=== PATIENT | male | born 1950 | race Caucasian/White ===

== ENCOUNTER 2019-06-13 20:14 | Observation (INO) | payer MEDICARE, SELFPAY ==
--- NOTE | ~2019-06-13 | XR_ITS ---
EXAMINATION: XR shoulder LT min 2V DATE: 06/13/2019 22:10 INDICATION: Left shoulder pain and inability to move the left arm post fall TECHNIQUE: AP internally rotated, AP oblique externally rotated and transscapular Y views of the left shoulder were obtained. COMPARISON: None FINDINGS: On the AP view there is a double density along the cephalad margin of the scapular body suspicious fo r a minimally displaced fracture. No correlate identified on the transscapular Y projection and this region is obscured on the Grashey projections. There are several old healed posterior left rib fractu re deformities. Glenohumeral and acromioclavicular joints are normal alignment with mild osteoarthrit is. Mild upper thoracic levoscoliosis. There are bilateral deep brain stimulators with leads extendin g cephalad along the left and right sides of the neck. IMPRESSION: Suspicion of a minimally displaced fracture at the cephalad aspect of the left scapular body. If clin ically indicated could consider CT for more definitive determination. Reviewed, dictated and finalized at location A. ER MACHINE OPERATOR IMPRESSION: Suspicion of a minimally displaced fracture at the cephalad aspect of the left scapular body. If clinically indicated could consider CT for more definitive de termination.
--- NOTE | ~2019-06-13 | XR_ITS ---
EXAMINATION: XR elbow LT min 3V DATE: 06/13/2019 22:09 INDICATION: Left elbow pain post fall TECHNIQUE: Anteroposterior, oblique and lateral views of the left elbow were obtained. COMPARISON: None. FINDINGS: Alignment is normal. No fracture. Joint spaces are normal. Soft tissues are unremarkable. IMPRESSION: 1. Negative left elbow radiographs. Reviewed, dictated and finalized at location A. ACT CENTER SPECIALIST
--- NOTE | ~2019-06-13 | CT_ITS ---
EXAMINATION: CT cervical spine wo con DATE: 06/13/2019 21:52 INDICATION: Fall with left shoulder pain. TECHNIQUE: Computed tomography (CT) of the cervical spine was performed without intravenous contrast. Automated exposure control and iterative reconstruction technique were employed. The dose-length pro duct was 501.75 mGy-cm. COMPARISON: None FINDINGS: Mild cervical dextrocurvature. Sagittal alignment is normal. Severe osteoarthritis at the atlantoaxia l articulation. Vertebral body heights are normal. No acute fracture. Mild disc height loss at C5-C6 and moderate disc height loss at C6-C7. Small posterior disc osteophyte complex at both levels result in mild central canal stenosis. Facet osteoarthritis, severe on the right at C7-T1 and moderate on t he left at C3-C4 and on the right at T3-T4. Additional mild bilateral multilevel facet osteoarthritis throughout the cervical spine and upper thoracic spine. Moderate bilateral uncovertebral osteoarthri tis at C6-C7 contribute to moderate left-sided and mild right-sided neural foraminal stenosis at this level. No significant stenosis in the remaining neural foramina. Bilateral spinal stimulator leads s een extending along the posterolateral aspect of the left and right sides of the neck. Cervical soft tissues are otherwise unremarkable. Minimal dependent atelectasis at the apices of lungs which may be related to expiratory phase of imaging. IMPRESSION: 1. Mild cervical spondylosis. No acute osseous abnormality. Reviewed, dictated and finalized at location A. PARTS SALESPERSON
--- NOTE | ~2019-06-13 | XR_ITS ---
EXAMINATION: XR hip LT 2V w AP pelvis DATE: 06/13/2019 22:09 INDICATION: Left hip pain post fall TECHNIQUE: Anteroposterior view of the pelvis and anteroposterior, frog leg and cross-table lateral v iews of the left hip were obtained. COMPARISON: CT abdomen and pelvis dated 07/05/2007. FINDINGS: Alignment is normal. No fracture. Mild left and mild to moderate right hip osteoarthritis. Sacrum and bilateral sacralized joints are normal. Likely benign chronic lytic lesion with thin sclerotic antonino ns at the left iliac wing which is without interval change since 07/05/2007 IMPRESSION: 1. Mild left and mild to moderate right hip osteoarthritis. No acute osseous abnormality. Reviewed, dictated and finalized at location A. ANICAL SUPERVISOR IMPRESSION: 1. Mild left and mild to moderate right hip osteoarthritis. No acute osseous ab normality.
--- NOTE | ~2019-06-13 | CT_ITS ---
EXAMINATION: CT brain wo con DATE: 06/13/2019 21:51 INDICATION: Anticoagulated patient with Parkinson's disease post fall TECHNIQUE: Computed tomography (CT) of the head was performed without intravenous contrast. Sagittal and coronal reconstructions were performed. The mA was adjusted according to patient size. Iterative reconstruction technique was employed. The dose-length product was 681.00 mGy-cm. COMPARISON: None FINDINGS: Bilateral deep brain stimulators in expected position extending through bilateral frontal maria del carmen holes. No fracture. No acute intracranial hemorrhage, acute infarction or abnormal extra axial fluid collec tion. Symmetric prominence of the sulci consistent with mild age-appropriate diffuse cerebral volume loss. Ventricles are normal and symmetric. No mass/mass effect. Coastal thickening the bilateral maxi llary sinuses. The orbits and mastoid air cells are normal. IMPRESSION: 1. No fracture or acute intracranial process. Reviewed, dictated and finalized at location A. RTMENT CHAIRPERSON
[2019-06-13 20:21] VITALS: BP 134/85; PULSE 71; RESP 16; TEMP 36.2; O2SAT 97
--- NOTE | 2019-06-13 20:37 | ED.FALL ---
HPI - Fall General Chief Complaint: Extremity Injury, Upper Stated Complaint: fall Time Seen by Provider: 06/13/19 20:30 Source: patient and RN notes reviewed Mode of arrival: EMS Limitations: no limitations History of Present Illness HPI Narrative: Pt is a 69 y/o male with a Hx of Parkinson's disease, who presents to the ED via EMS with c/o fall happening this evening. He notes that he slipped and fell on a patch of ice this evening and struck his lt shoulder on the ground. Pt states that he is unsure of whether or not he struck his head during the fall. He notes that he has had intense pain diffusely through his lt shoulder ever since the fall. Pt currently denies any hip pain, numbness/tingling, headache, vision changes, vomiting, or other symptoms. He is currently taking blood thinners. MD complaint: fall Fall from: standing Place fall occurred: home Symptoms prior to fall: none Context: tripped/slipped Location of injury - extremities: Left: shoulder Associated symptoms (after fall): other (diffuse lt shoulder pain) Related Data Home Medications Medication Instructions Recorded Confirmed carbidopa-levodopa tablet 06/13/19 empagliflozin [Jardiance] 10 mg PO QAM 06/13/19 06/13/19 entacapone mg 06/13/19 linaclotide [Linzess] mcg 06/13/19 midodrine mg 06/13/19 prasugrel 10 mg PO DAILY 06/13/19 06/13/19 rivaroxaban [Xarelto] mg 06/13/19 Allergies Allergy/AdvReac Type Severity Reaction Status Date / Time No Known Allergies Allergy Unverified 10/02/18 08:52 Review of Systems Review of Systems: Narrative: CONSTITUTIONAL: Denies fever, chills, or sweats. EYES: Denies visual changes, redness, or discharge. GASTROINTESTINAL: Denies abdominal pain, nausea, vomiting, or diarrhea. SKIN: Denies rash or itching. MUSCULOSKELETAL: Denies back pain or hip pain. Reports diffuse lt shoulder pain. NEUROLOGIC: Denies headache, numbness, or weakness. All systems reviewed & are unremarkable except as noted in HPI and below PMFSH Past Medical History Medical History DVT (deep venous thrombosis) Kidney stones Parkinsons disease Right rotator cuff tear Seizures Ventral hernia Surgical History Surgical History Hx of appendectomy Hx of repair of right rotator cuff Hx of tonsillectomy S/P deep brain stimulator placement Family History Family History (Updated 11/14/15 @ 23:19 by DOCTOR UNKNOWN) Mother Family history of Alzheimer's disease Sibling Family history of malignant neoplasm of breast in first degree relative Other Family history of hepatitis Social History Social History Smoking status: Never smoker Second hand tobacco smoke exposure: No Alcohol intake: never Exam Narrative: Exam Narrative: GENERAL:Uncomfortable appearing, acutely distressed due to pain HEAD: Normocephalic, atraumatic. EYES: PERRLA and EOMI. ENT: Nares clear, no rhinorrhea or epistaxis. Mucous membranes moist. NECK: Supple. CHEST: Clear to auscultation. No respiratory distress. HEART: Regular rate and rhythm. No murmur heard. Normal peripheral pulses (radial pulses 2+). ABDOMEN: Soft, nontender, nondistended, normal active bowel sounds. EXTREMITIES: No edema. No tenderness along lt clavicle. No obvious deformity. Tenderness over lt deltoid and lt proximal humerus, left scapula. + Rigidity in LUE is baseline. SPINE: No cervical or thoracic tenderness. Pelvis: Stable. No tenderness. No pain with internal or external rotation. SKIN: Warm, dry, no rash. NEURO: No focal deficits. Alert and oriented. Course Course Emergency Course: The patient presented to the emergency department for evaluation of shoulder pain following a ground-level fall in which he slipped on some ice. Patient has extreme tenderness over the left deltoid and scapula. No obvious dislocation clinically. Neurovascularly
[2019-06-13 21:08] LABS: Basophils Percent Auto 0.5 % (0.2-1.2); Eosinophils Absolute Auto 0.2 K/mm3 (0-0.3); Eosinophils Percent Auto 3.1 % (0-4.4); Hematocrit 41.5 % (42.0-52.0); Hemoglobin 13.7 g/dL (14.0-18.0); Immature Granulocyte Absolute 0.01 K/mm3 (0.00-0.031); Immature Granulocyte Percent A 0.2 % (0-0.5); Lymphocytes Absolute Auto 1.77 K/mm3 (0.9-3.2); Lymphocytes Percent Auto 28.9 % (18.3-44.2); Mean Corpuscular Hemoglobin 32.5 pg (26-34); Mean Corpuscular Volume 98.3 fl (80-100); Monocytes Absolute Auto 0.6 K/mm3 (0.1-0.6); Neutrophils Absolute Auto 3.5 K/mm3 (1.3-6.7); Neutrophils Percent Auto 57.3 % (45.5-73.1); Platelet Count Result 182 k/mm3 (150-375); Red Blood Count 4.22 M/mm3 (4.6-6.20); Red Cell Distribution Width 12.9 % (11.5-14.5); White Blood Count 6.1 K/mm3 (4.5-10.0)
[2019-06-13 21:20] LABS: Blood Urea Nitrogen 30 mg/dL (9-20); Calcium 9.2 mg/dL (8.4-10.2); Carbon Dioxide 24 mmol/L (22-30); Chloride 106 mmol/L (98-107); Estimated Glomerular Filt Rate 46; Glucose 113 mg/dL (75-110); Potassium 4.1 mmol/L (3.4-5.0); Sodium 138 mmol/L (137-145)
--- NOTE | 2019-06-13 21:30 | PC.NURSE ---
managed care director able to get all blood except blue top. will attempt again when pt gets back from xray/ct.
[2019-06-13] MEDS: LORAZEPAM INJ 2 MG/ML VIAL 0.5 MG IV PUSH (21:31)
--- NOTE | 2019-06-13 21:34 | PC.NURSE ---
pt to ct/xray via stretcher.
[2019-06-13] MEDS: SODIUM CHLORIDE 0.9% IV 1,000 ML 999 ML IV CONT (22:15)
[2019-06-13 22:26] VITALS: BP 157/89; PULSE 67; RESP 18; O2SAT 97
[2019-06-13 22:37] LABS: INR 1.3; Partial Thromboplastin Time 31.7 SECONDS (22.3-36.8); Prothrombin Time 15.5 Seconds (11.1-14.7)
[2019-06-13 23:20] VITALS: BP 143/80; RESP 68; O2SAT 100
[2019-06-13] MEDS: LORAZEPAM INJ 2 MG/ML VIAL 1 MG IV PUSH (23:48)
[2019-06-13] MEDS: DIAZEPAM 5 MG TABLET PO (23:51)
[2019-06-13 23:55] VITALS: BP 152/90; PULSE 74; RESP 18; O2SAT 96
[2019-06-14 00:43] VITALS: BP 150/93; PULSE 64; RESP 12; O2SAT 98
--- NOTE | 2019-06-14 01:02 | PC.NURSE ---
This patient, Herbert Jansen, was admitted to Medical Room 256-. Patient/family oriented to hospital policies and general routines including ID bracelet, bed and alarms, visiting hours, pain management, procedures, bathroom and other care routines, personal items, smoking policy, room service/diet, and visiting hours. Valuables list has been completed. Information on how to activate the Rapid Response Team has been discussed. Patient/Family are encouraged to report perceived risks to care and to ask questions if they do not understand what they are told or what they should do.
[2019-06-14 01:04] VITALS: BMI 28.0
[2019-06-14 01:06] VITALS: BP 145/81; PULSE 67; RESP 18; TEMP 36.4; O2SAT 93
[2019-06-14 05:53] VITALS: BP 125/85; PULSE 77; RESP 18; TEMP 36.1; O2SAT 97
--- NOTE | 2019-06-14 08:30 | PM.IMHP ---
H&P: HPI History of Present Illness Chief complaint: left scapular fracture muscle spasm Narrative: Herbert Jansen is a 69 year old male with history of Parkinson's and past DVT (on [facility] Xarelto for prophylaxis per ) who presented to the ER on evening of 06/13 via EMS after sustaining a ground level fall last night. Patient reports leaving a restaurant after dinner last night and slipped on black ice , causing patient to lose his footing, with feet slipping out from under him and him landing on his back/left side. He does not think he hit his head or lost consciousness. EMS was called and took him to the ER immediately. His pain was 8/10 at its worse, but his pain medication regimen has significantly reduced his pain, reporting no pain while lying in bed. Moving the left shoulder and palpation in the area makes it worse. He does not believe he injured anywhere else in his body. Patient tells me that he recently purchased a Rollator yesterday for aid in ambulation, but previously used a cane, using his right had predominately. He does not report acute changes in his ambulatory status, but does report some imbalance issues recently as Parkinson's progresses. No recently medication changes and after speaking with the , with the patient's permission, she tells me that he takes his medications as prescribed. He reports a chronic cough and constipation issues related to his Parkinson's. Otherwise, patient has no other complaints. Patient denies f/c/ns, recent illness, headaches, dizziness, lightheadedness, changes in v/h, cp/palpitations, sob, n/v/d, abd pain, melena, brbpr, dysuria, hematuria, cloudy urine, calf pain/swelling, s/sx of stroke Review of Systems Review of Systems: All systems reviewed & are unremarkable except as noted in HPI and below PMFSH Past Medical History Medical History History of DVT (deep vein thrombosis) Kidney stones Parkinsons disease Right rotator cuff tear Seizures Ventral hernia Surgical History Surgical History Hx of appendectomy Hx of repair of right rotator cuff Hx of tonsillectomy S/P deep brain stimulator placement Family History Family History Mother Family history of Alzheimer's disease Sibling Family history of malignant neoplasm of breast in first degree relative two sisters with breast cancer Father Family history of hepatitis Social History Social History Social History: Patient lives at home with his , Heydi, who is his surrogate MDM. His PCP is Dr. Rowe. He wishes to be listed as a Full Code. Smoking status: Never smoker Second hand tobacco smoke exposure: No Alcohol intake: current Alcohol use details: Occasional Substance use: former Gender identity (if verbalized by the patient): Male Spiritual care concerns: No Agree to blood products: Yes Meds Home Medications and Allergies Home Medications Medication Instructions Recorded Confirmed Type carbidopa-levodopa 1.5 tablet PO USEASDIRECTD 06/13/19 06/14/19 History entacapone 200 mg PO DIRECTED 06/13/19 06/14/19 History linaclotide [Linzess] 290 mcg PO AC 06/13/19 06/14/19 History rivaroxaban [Xarelto] 20 mg PO AC 06/13/19 06/14/19 History Calcium 500 1,000 mg PO DAILY 06/14/19 06/14/19 History Fleet Glycerin (Adult) 1 unit DAILY 06/14/19 06/14/19 History Vitamin D3 2,000 units PO DAILY 06/14/19 06/14/19 History alendronate 70 mg PO WEEKLY 06/14/19 06/14/19 History carbidopa-levodopa 2 tablet PO HS 06/14/19 06/14/19 History cyanocobalamin (vitamin B-12) 200 mg PO DAILY 06/14/19 06/14/19 History magnesium 500 mg PO DAILY 06/14/19 06/14/19 History omeprazole 20 mg PO DAILY 06/14/19 06/14/19 History Allergies Allergy/AdvReac Type Severity Reaction Status Date / T
[2019-06-14] MEDS: ENTACAPONE 200 MG TABLET PO ×5 (08:34→22:33)
[2019-06-14] MEDS: PANTOPRAZOLE 40 MG TABLET PO (08:34)
[2019-06-14] MEDS: CARBIDOPA/LEVODOPA 12.5/50 MG TABLET 1 TABLET PO ×4 (09:41→20:55)
[2019-06-14] MEDS: CARBIDOPA/LEVODOPA 25/100 MG TABLET 1 TABLET PO ×4 (09:42→20:54)
--- NOTE | 2019-06-14 10:24 | PHAR ---
The patient's home med of Linaclotide [Linzess] 290 MCG has been verified.
[2019-06-14 10:46] VITALS: BP 94/59; PULSE 64; RESP 16; TEMP 36.2; O2SAT 95
[2019-06-14 13:29] VITALS: BP 103/64; PULSE 70; RESP 16; TEMP 36.2; O2SAT 95
--- NOTE | 2019-06-14 15:13 | PM.CNOR ---
Assessment and Plan Assessment and plan (1) Fracture closed, scapula: Qualifiers: Encounter type: initial encounter Laterality: left Scapula location: unspecified part of scapula Qualified Code(s): S42.102A - Fracture of unspecified part of scapula, left shoulder, initial encounter for closed fracture Code(s): S42.109A - Fracture of unspecified part of scapula, unspecified shoulder, initial encounter for closed fracture Status: Acute Assessment and Plan: New patient evaluation status post injury. The history, physical exam and radiographs reviewed with the patient. Type of fracture discussed in detail . Treatment options including operative and non operative treatment reviewed . Risks, benefits and alternatives of each treatment discussed in detail . The patient has declined surgical treatment. Risks of treatment decision discussed in detail. Potential problems with displacement of the fracture, loss of alignment, nonunion, malunion and dysfunction discussed in detail. The patient's questions were answered. They verbalized understanding and agreement. Conservative treatment with immobilization, ice , compression and elevation. sling left upper extremity. Pain control. PT/OT. Will continue to follow. No surgical indication at this time. History of Present Illness HPI Consult date: 06/14/19 Requesting physician: Kandy Alfaro MD Consult reason: fracture ( Left shoulder) Chief complaint: left scapular fracture muscle spasm Narrative: 69-year-old gentleman with history of Parkinson's disease. Slipped yesterday on ice and fell back onto the posterior aspect of the left shoulder. Due to left shoulder pain and muscle spasm presented to the emergency room. Radiographs rib questionable for fracture. He is admitted for pain control and rehab. Complains of posterior left shoulder pain when he tries to move the arm. Minimal pain at rest. Pain overall is much improved compared to yesterday. Denies any new numbness or tingling. Denies head injury or loss of consciousness. Review of Systems Constitutional: Constitutional: Denies fever(s) Eyes: Eyes: Denies blurry vision ENT: Reports Normal hearing present Cardiovascular: Cardiovascular: Denies chest pain and Denies dyspnea Respiratory: Respiratory: Denies dyspnea and Denies wheezing Gastrointestinal: Gastrointestinal: Denies abdominal pain Genitourinary: Genitourinary: Denies urinary urgency Musculoskeletal: Musculoskeletal: Reports as per HPI and Denies numbness Integumentary/Breasts: Skin/Breast: Denies changing lesions and Denies sores Neurologic: Reports Normal hearing present, Reports abnormal gait ( Parkinson's disease), Denies behavioral changes, Denies confusion, Denies numbness, Denies convulsions and Reports seizure-like activity Psychiatric: Psychiatric: Denies behavioral changes, Denies confusion and Denies hallucinations Endocrine: Endocrine: Denies heat intolerance Hematologic/Lymphatic: Hematologic/Lymphatic: Denies easy bleeding Allergic/Immunologic: Allergic/Immunologic: Denies wheezing PMFSH Past Medical History Medical History History of DVT (deep vein thrombosis) Kidney stones Parkinsons disease Right rotator cuff tear Seizures Ventral hernia Surgical History Surgical History Hx of appendectomy Hx of repair of right rotator cuff Hx of tonsillectomy S/P deep brain stimulator placement Family History Family History Mother Family history of Alzheimer's disease Sibling Family history of malignant neoplasm of breast in first degree relative two sisters with breast cancer Father Family history of hepatitis Social History Social History Social History: Patient lives at home with his
[2019-06-14] MEDS: RIVAROXABAN 20 MG TABLET PO (16:42)
[2019-06-14 22:00] VITALS: BP 121/68; PULSE 64; RESP 16; TEMP 36.2; O2SAT 94
[2019-06-14] MEDS: CARBIDOPA/LEVODOPA 25/100 MG TABLET 2 TABLET PO (22:33)
[2019-06-15 05:41] LABS: Blood Urea Nitrogen 21 mg/dL (9-20); Calcium 8.3 mg/dL (8.4-10.2); Carbon Dioxide 25 mmol/L (22-30); Chloride 106 mmol/L (98-107); Estimated CRCL calculation 68 ml/min; Estimated Glomerular Filt Rate > 60; Glucose 90 mg/dL (75-110); Potassium 3.7 mmol/L (3.4-5.0); Sodium 137 mmol/L (137-145)
[2019-06-15 06:00] VITALS: BP 149/79; PULSE 62; RESP 20; TEMP 36.8; O2SAT 98
[2019-06-15] MEDS: CARBIDOPA/LEVODOPA 12.5/50 MG TABLET 1 TABLET PO ×2 (06:22→12:02)
[2019-06-15] MEDS: ENTACAPONE 200 MG TABLET PO ×2 (06:23→12:02)
[2019-06-15] MEDS: CARBIDOPA/LEVODOPA 25/100 MG TABLET 1 TABLET PO ×2 (06:23→12:02)
--- NOTE | 2019-06-15 08:33 | PCPTNOTE ---
Attempted to see Pt, Pt was eating breakfast. Will attempt again.
[2019-06-15] MEDS: PANTOPRAZOLE 40 MG TABLET PO (09:13)
--- NOTE | 2019-06-15 10:58 | PM.DS ---
DS: Diagnosis Admitting Diagnosis Admitting Diagnosis: Fracture of unspecified part of scapula, left shoulder, initial encounter for closed fracture Discharge Diagnosis (1) Fracture closed, scapula: Qualifiers: Encounter type: initial encounter Laterality: left Scapula location: unspecified part of scapula Qualified Code(s): S42.102A - Fracture of unspecified part of scapula, left shoulder, initial encounter for closed fracture Code(s): S42.109A - Fracture of unspecified part of scapula, unspecified shoulder, initial encounter for closed fracture Status: Acute Assessment and Plan: Noted on Xray imaging of suspicion of a minimally displaced fracture at cephalad aspect of left scapular body. Patient's pain has improved again today. He does not believe he received any pain medication today and the pain has gone down. Neurologically intact, decreased ROM secondary to pain; baseline chronic decrease mobility due to parkinson's. Orthopedic Surgery has been consulted from the ER and appreciate recommendations PT/OT Sling per Ortho recommendations. Plan on discharge to SNF today Monitor Pain control with Tylenol and short supply of Tramadol; patient wishes to refrain from narcotics as much as possible given his constipation (2) History of DVT (deep vein thrombosis): Code(s): Z86.718 - Personal history of other venous thrombosis and embolism Status: Acute Assessment and Plan: Patient takes Xarelto for DVT ppx. No clinical signs of VTE, nor signs of bleeding from fall Continue Xarelto (3) Parkinsons disease: Code(s): G20 - Parkinson's disease Status: Acute Assessment and Plan: Patient takes Sinemet 1.5 tablets several times a day and 2 tablets at night time Continue home regimen Continue Linzess for constipation related to Parkinson's as well as Fleets enemas as needed PT/OT (4) Elevated serum creatinine: Code(s): R79.89 - Other specified abnormal findings of blood chemistry Status: Acute Assessment and Plan: Cr down to 0.90; down from 1.50 yesterday; unclear etiology Follow up with PCP DS: Summary Hospital Course Reason for hospitalization: Left scapular fracture s/p fall Hospital Course: Patient is a 69 yo M with history of Parkinson's and past DVT (on [employer] Xarelto prophylaxis) who presented to the ER on evening of 06/13 via EMS after sustaining a ground level fall that night. Patient was walking out of a restaurant when he slipped on some ice, landing on his left back/shoulder. While in the ED, patient was found to have a minimally displaced fracture of the scapular body cephalad to the scapular spine on expanded view of CT imaging of c-spine. Please see H&P for further details. Presenting VS: BP 134/85, HR 71, RR 16, temp 97.2, sat 97% RA Presenting Pertinent labs: Cr 1.50 (06/15 0.90). CBC, coags, BMP otherwise unremarkable. Micro: none Imagin/[address] IMPRESSION: 1. No fracture or acute intracranial process. 06/13 left shoulder xray IMPRESSION: Suspicion of a minimally displaced fracture at the cephalad aspect of the left scapular body. If clinically indicated could consider CT for more definitive determination. ADDENDUM: The [id number] for the CT of the cervical spine was expanded and confirms a minimally displaced fracture of the scapular body cephalad to the scapular spine. 06/13 left elbow xray IMPRESSION: 1. Negative left elbow radiographs. 06/13 left hip/pelvis xray IMPRESSION: 1. Mild left and mild to moderate right hip osteoarthritis. No acute osseous abnormality. 06/13 c-spine CT IMPRESSION: 1. Mild cervical spondylosis. No acute osseous abnormality. ECG: none Patient was admitted to the hospitalist service for further evaluation for left scapular fracture; Dr. Meneses
[2019-06-15 14:10] VITALS: BP 115/71; PULSE 85; RESP 18; TEMP 36.2; O2SAT 97
== END 2019-06-15 15:15 ==
LOC: ANHED 06-14 00:10 → ANH2MED 06-14 00:32
PROVIDERS: Physician Assistant; Admitting Provider Internal Medicine; Emergency Provider Emergency Medicine; PCP Internal Medicine; Visit Provider Hospitalist
DX: S42.102A Fracture of unspecified part of scapula, left shoulder, initial encounter for closed fracture (principal); W00.0XXA Fall on same level due to ice and snow, initial encounter; M62.838 Other muscle spasm; R79.89 Other specified abnormal findings of blood chemistry; G20 Parkinson's disease; K59.00 Constipation, unspecified; Z79.01 Long term (current) use of anticoagulants; Z79.899 Other long term (current) drug therapy; Z86.718 Personal history of other venous thrombosis and embolism; Z96.82 Presence of neurostimulator
CPT/HCPCS: 28495; 36415; 70450; 72125; 73030; 73080; 73502; 73521; 80048; 85025; 85610; 85730; 96361; 96374; 96375; 96376; 97116; 97161; 97165; 97530; 97535; 99285; A4565; A9270; G0378; J2060; J3010; J7030

== ENCOUNTER 2021-10-20 22:53 | Observation (INO) | payer MEDICARE, SELFPAY ==
--- NOTE | ~2021-10-20 | XR_ITS ---
EXAMINATION: XR shoulder RT min 2V INDICATION: Right shoulder pain TECHNIQUE: Two views of the right shoulder are submitted. COMPARISON: None FINDINGS: There appears to be a comminuted fracture of the scapular body. No additional acute fractur e is identified. There is widening at the acromioclavicular joint. A stimulator device is noted. IMPRESSION: 1. Probable comminuted fracture of the scapular body. Reviewed, dictated and finalized at location B.
[2021-10-20 22:53] VITALS: BP 98/80; PULSE 70; RESP 16; TEMP 36.4; O2SAT 94
[2021-10-20 22:57] VITALS: BP 98/80; PULSE 69; RESP 24; O2SAT 92
[2021-10-20 22:58] VITALS: PULSE 62; RESP 19; O2SAT 93
[2021-10-20 23:00] VITALS: PULSE 70; RESP 17; O2SAT 93
[2021-10-20 23:01] VITALS: BP 108/71; PULSE 72; RESP 12; O2SAT 92
[2021-10-21] VITALS (28 sets, daily range): BP systolic 99–139; BP diastolic 54–78; PULSE 53–97; RESP 12–23; TEMP 36.4–36.7; O2SAT 65–96
--- NOTE | 2021-10-21 00:21 | ED.FALL ---
HPI - Fall General Chief Complaint: Fall Stated Complaint: FALL WITH RT SHOULDER PAIN Time Seen by Provider: 10/20/21 23:41 History of Present Illness HPI Narrative: 71-year-old male with history of Parkinson's presenting to the emergency department for evaluation of right shoulder pain. Patient had a ground-level fall and has had subsequent right shoulder pain. Patient arrived to the ED by EMS with his right arm in a pouch sling. Patient denies any other pain or injury. Patient denies striking head denies any loss of consciousness. Related Data Home Medications Medication Instructions Recorded Confirmed Fleet Glycerin (Adult) 1 unit DAILY 06/14/19 10/21/21 Vitamin D3 2,000 units PO DAILY 06/14/19 10/21/21 calcium carbonate 500 mg calcium 500 mg PO DAILY 01/30/21 10/21/21 (1,250 mg) tablet cyanocobalamin (vitamin B-12) 1,000 mcg PO DAILY 01/30/21 10/21/21 1,000 mcg tablet magnesium 250 mg tablet 250 mg PO DAILY 01/30/21 10/21/21 carbidopa 25 mg-levodopa 100 mg 1.5 tablet PO QID 06/18/21 10/21/21 tablet entacapone 200 mg tablet 100 mg PO .5XD 06/18/21 10/21/21 carbidopa 25 mg-levodopa 100 mg 2 tablet PO HS 10/21/21 10/21/21 tablet folic acid 1 mg tablet 1 mg PO DAILY 10/21/21 10/21/21 linaclotide 290 mcg capsule 390 mcg PO DAILY 10/21/21 10/21/21 (Linzess) midodrine 5 mg tablet 5 mg PO TID 10/21/21 10/21/21 rivaroxaban 20 mg tablet (Xarelto) 20 mg PO DAILY 10/21/21 10/21/21 rosuvastatin 10 mg tablet 10 mg PO DAILY 10/21/21 10/21/21 Allergies Allergy/AdvReac Type Severity Reaction Status Date / Time No Known Allergies Allergy Verified 10/20/21 22:58 Review of Systems Review of Systems: Patient reports shoulder pain ROS unobtainable: Yes unobtainable due to medical condition PMFSH Past Medical History Medical History (Updated 10/21/21 @ 05:03 by Kianna Miller DO) Autonomic dysfunction BPH (benign prostatic hyperplasia) Constipation by delayed colonic transit Deep vein thrombosis of left lower limb X2 Dupuytrens contracture Eczema GERD (gastroesophageal reflux disease) History of pelvic fracture Hyperlipidemia Iron deficiency anemia Kidney stones Orthostatic hypotension Osteoporosis Parkinsons disease Seizures Ventral hernia Vitamin B12 deficiency Vitamin D deficiency Surgical History Surgical History (Updated 10/21/21 @ 05:03 by Kianna Miller DO) History of appendectomy Hx of repair of right rotator cuff Hx of tonsillectomy S/P deep brain stimulator placement (~2011) Family History Family History Mother Family history of Alzheimer's disease Sibling Family history of malignant neoplasm of breast in first degree relative two sisters with breast cancer Father Family history of hepatitis Social History Social History (Updated 10/21/21 @ 05:19 by Kianna Miller DO) Social History: Patient lives at home with his , Heydi, who is his surrogate MDM. His PCP is Dr. Rowe. He wishes to be listed as a Full Code. However he does not think he would want a G-tube. Smoking status: Never smoker Second hand tobacco smoke exposure: No Alcohol intake: never Alcohol use details: On occasion in in moderation. 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 Gender identity (if verbalized by the patient): Male Spiritual care concerns: No Agree to blood products: Yes Exam Narrative: APPEARANCE: Uncomfortable appearing HEAD: normocephalic, atraumatic. EYES: PERRLA/EOMI, conjunctivae clear. NOSE: Normal no drainage NECK: Supple. No adenopathy, no masses. RESPIRATORY: Airway patent, respirations nonlabored. Clear to auscultation bilaterally, no rales, rhonchi, wheezing. CARDIOVASCULAR: Regular rate and rhythm without murmurs rubs or gallops. ABDOMINAL: Soft, nontender, nondistended, normal bowel sounds MUSCULOSKELETAL: Moves all extremities. Right s
[2021-10-21] MEDS: HYDROmorphone HCL INJ (*CRX) 1 MG/ML SYR 0.5 MG IV PUSH (00:25)
[2021-10-21] MEDS: HYDROcodone/acetaminophen (*CRX) 5-325 MG TABLET 1 TAB PO ×2 (02:45→08:48)
[2021-10-21 03:23] LABS: Basophils Percent Auto 0.3 % (0.2-1.2); Eosinophils Percent Auto 0.2 % (0-4.4); Hematocrit 40.7 % (42.0-52.0); Hemoglobin 13.6 g/dL (14.0-18.0); Immature Granulocyte Absolute 0.04 K/mm3 (0.00-0.031); Immature Granulocyte Percent A 0.4 % (0-0.5); Lymphocytes Absolute Auto 1.34 K/mm3 (0.9-3.2); Lymphocytes Percent Auto 11.8 % (18.3-44.2); Mean Corpuscular HGB Conc 33.4 g/dl (32-36); Mean Corpuscular Hemoglobin 33.6 pg (26-34); Mean Corpuscular Volume 100.5 fl (80-100); Mean Platelet Volume 11.9 fl (7.4-10.4); Monocytes Absolute Auto 0.9 K/mm3 (0.1-0.6); Monocytes Percent Auto 7.8 % (2.6-8.5); Neutrophils Percent Auto 79.5 % (45.5-73.1); Platelet Count Result 167 k/mm3 (150-375); Red Blood Count 4.05 M/mm3 (4.6-6.20); Red Cell Distribution Width 13.1 % (11.5-14.5); White Blood Count 11.4 K/mm3 (4.5-10.0)
[2021-10-21 03:35] LABS: Alanine Aminotransferase 8 U/L (6-50); Albumin Level 4.3 g/dL (3.5-5.1); Alkaline Phosphatase 43 U/L (38-126); Anion Gap 6 mmol/L (8-16); Aspartate Amino Transferase 23 U/L (17-59); Bilirubin,Total 0.5 mg/dL (0.2-1.3); Blood Urea Nitrogen 33 mg/dL (9-20); Calcium 8.9 mg/dL (8.4-10.2); Carbon Dioxide 25 mmol/L (22-30); Chloride 106 mmol/L (98-107); Estimated CRCL calculation 56 ml/min; Estimated Glomerular Filt Rate > 60; Glucose 123 mg/dL (65-110); Potassium 4.1 mmol/L (3.4-5.0); Sodium 137 mmol/L (137-145)
[2021-10-21 04:00] LABS: SARS-CoV-2 RNA PCR Negative
--- NOTE | 2021-10-21 04:45 | PM.IMHP ---
H&P: HPI History of Present Illness Date/Time: 10/21/21 03:50 Chief Complaint: Right shoulder pain after falling Narrative: 71-year-old male with past medical history of osteoporosis, orthostatic hypotension, Parkinson's disease and BPH who presented to the ER via EMS after falling while shaving. The patient reports that he was shaving and was not hold on to the sink or his walker when he lost his balance and fell landing on his right shoulder. He had immediate severe pain to his right shoulder. The pain is worse with any movement. He is also having muscle spasms even when he is not moving which causes the pain to be more severe. The pain is a 6/10 in intensity at rest and will be a 10/10 in intensity with movement or when he has the muscle spasms. He has intact pulses in the extremity and reports that his sensation in his fingers is normal. He does have a masked face ease and slow responses but is alert and oriented x4. He does have BPH and was recently started on finasteride. He does have occasional dribbling of urine in a slow urine stream. He does have a sensation of incomplete bladder emptying but denies any dysuria or hematuria. He has chronic constipation and takes MiraLax and a glycerin suppository daily. He is dependent upon using a walker but does try to ambulate about a quarter of a mi a day. His reports that he has a deep brain stimulator in place but they have not been able to go to [place] as much recently for adjustments of his stimulator. He denies any headaches or vision changes. He did not have any lightheadedness or syncopal symptoms. He denies any chest pain or shortness of breath. Source of information is patient and review of past medical records. His is also at bedside and provided some history. The patient's case was discussed with his with his express permission. Review of Systems Review of Systems: 12 systems were reviewed with pertinent positives and negatives per HPI. Except as documented in the HPI, all other systems were reviewed and are negative. [facility] Past Medical History Medical History (Updated 10/21/21 @ 05:03 by Kianna Miller DO) Autonomic dysfunction BPH (benign prostatic hyperplasia) Constipation by delayed colonic transit Deep vein thrombosis of left lower limb X2 Dupuytrens contracture Eczema GERD (gastroesophageal reflux disease) History of pelvic fracture Hyperlipidemia Iron deficiency anemia Kidney stones Orthostatic hypotension Osteoporosis Parkinsons disease Seizures Ventral hernia Vitamin B12 deficiency Vitamin D deficiency Surgical History Surgical History (Updated 10/21/21 @ 05:03 by Kianna Miller DO) History of appendectomy Hx of repair of right rotator cuff Hx of tonsillectomy S/P deep brain stimulator placement (~2011) Family History Family History Mother Family history of Alzheimer's disease Sibling Family history of malignant neoplasm of breast in first degree relative two sisters with breast cancer Father Family history of hepatitis Social History Social History (Updated 10/21/21 @ 05:19 by Kianna Miller DO) Social History: Patient lives at home with his , Heydi, who is his surrogate MDM. His PCP is Dr. Rowe. He wishes to be listed as a Full Code. However he does not think he would want a G-tube. Smoking status: Never smoker Second hand tobacco smoke exposure: No Alcohol intake: never Alcohol use details: On occasion in in moderation. 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 Gender identity (if verbalized by the patient): Male Spiritual care concerns: No Agree to blood products: Yes Meds Home Medications and Allergies Home Medications Medication Instructions Recorded Confirmed Type Fleet Glycerin (Adult) 1 unit DAILY 06/14/19 10/21/21 History Vitamin D3 2,000 units
[2021-10-21] MEDS: CYCLOBENZAPRINE HCL 10 MG TABLET PO (05:31)
--- NOTE | 2021-10-21 05:55 | ADMGEN ---
This patient, Herbert Jansen, was admitted to [facility] Room 315-02. Patient/family oriented to hospital policies and general routines including ID bracelet, bed and alarms, visiting hours, pain management, procedures, bathroom and other care routines, personal items, smoking policy, room service/diet, and visiting hours. Information on how to activate the Rapid Response Team has been discussed. Patient/Family are encouraged to report perceived risks to care and to ask questions if they do not understand what they are told or what they should do.
[2021-10-21] MEDS: MIDODRINE HCL 2.5 MG TABLET 5 MG PO ×3 (08:43→15:49)
[2021-10-21] MEDS: CYANOCOBALAMIN 1,000 MCG TABLET 1000 MCG PO (08:43)
[2021-10-21] MEDS: FOLIC ACID 1 MG TABLET PO (08:44)
[2021-10-21] MEDS: CHOLECALCIFEROL 1,000 UNITS TABLET 2000 UNITS PO (08:44)
[2021-10-21] MEDS: CALCIUM CARBONATE (OSCAL) 500 MG TABLET PO (08:44)
[2021-10-21] MEDS: ROSUVASTATIN 10 MG TABLET PO (08:44)
[2021-10-21] MEDS: LINACLOTIDE 145 MCG CAPSULE 290 MCG PO (08:44)
[2021-10-21] MEDS: MAGNESIUM OXIDE 200 MG TABLET PO (08:44)
--- NOTE | 2021-10-21 11:55 | PCPTNOTE ---
Needs ortho consult prior to completing PT evaluation.
--- NOTE | 2021-10-21 11:55 | PCOTNOTE ---
Needs ortho consult prior to completing OT evaluation.
[2021-10-21] MEDS: CARBIDOPA/LEVODOPA 12.5/50 MG TABLET 1 TABLET PO ×3 (12:27→20:48)
[2021-10-21] MEDS: CARBIDOPA/LEVODOPA 25/100 MG TABLET 1 TABLET PO ×2 (12:27→15:50)
[2021-10-21] MEDS: MORPHINE SULFATE (*CRX) 2 MG/ML INJ IV PUSH (12:28)
--- NOTE | 2021-10-21 15:17 | PM.IMPN ---
Progress Note: A&P Assessment and Plan (1) AC joint derangement: Code(s): M24.9 - Joint derangement, unspecified Status: Acute Assessment and Plan: Patient is in a cross body shoulder immobilizer. Orthopedic surgery consulted and appreciate recommendations. As noted above the patient has been seen by Dr. Gonzalez in the past. I contacted Dr. Gonzalez regarding this, however, he will be out of town and will defer to the Orthopedic provider concert or lecture hall manager. Pain control with [place] and Flexeril. (2) Impaired mobility: Code(s): Z74.09 - Other reduced mobility Status: Acute Assessment and Plan: PT and OT have been consulted. Given the patient's right shoulder AC separation and that he is dependent upon a walker for ambulation he will likely need long-term placement for rehab. (3) BPH (benign prostatic hyperplasia): Code(s): N40.0 - Benign prostatic hyperplasia without lower urinary tract symptoms Status: Acute Assessment and Plan: Continue home finasteride. Monitor urine output closely given history while receiving narcotic pain medications. (4) Fall from ground level: Code(s): W18.30XA - Fall on same level, unspecified, initial encounter Status: Acute Assessment and Plan: Fall precautions initiated. As above. Plan CODE STATUS: FULL CODE Disposition: Will likely need SNF placement. Estimated LOS: 2 days Subjective Date/time seen: 10/21/21 15:17 Patient c/o right shoulder pain that improves with oral medications. No IV morphine given. The patient's reports he has previously been seen by Dr. Gonzalez previously and wondered if he would be seeing the patient in the hospital. The patient was placed in a shoulder immobilizer in ED. Review of Systems Review of Systems: All systems reviewed & are unremarkable except as noted in HPI and below Exam Narrative: General: No acute distress.? Frail older adult male, lying in bed. Mental Status/Psych: Awake, alert and oriented to person and place with clear speech. Flat affect. Skin: Skin fair, warm, dry and intact without rashes or lesions. HEENT: Normocephalic. Conjunctivae are clear. Sclera is non-icteric. PERRL. Hard of hearing. Oral mucosa pink and moist. Tongue midline. Neck: Supple. No JVD. Cardiac: S1 and S2 regular rate and rhythm. No murmurs, gallops, or rubs auscultated. Respiratory: Respirations even and unlabored. Lung sounds are clear to auscultation in all lobes bilaterally without wheezes, rhonchi, or rales. Abdominal: Abdomen soft, round and non-tender to palpation.? Bowel sounds present in all 4 quadrants. Extremities:? Right shoulder immobilizer intact +CMS, grossly normal ROM all other extremities. No edema. Radial and dorsalis pedis pulses +2 bilaterally. Neurological: No focal deficits. Objective Data Vital Signs Vital Signs: Vital Signs - 24 hr 10/20/21 22:53 10/20/21 22:57 10/20/21 22:58 Temperature 97.5 F L Pulse Rate 70 69 62 Respiratory Rate 16 24 H 19 Blood Pressure 98/80 L 98/80 L Pulse Oximetry 94 92 93 Oxygen Delivery Room Air 10/20/21 23:00 10/20/21 23:01 10/21/21 00:07 Temperature Pulse Rate 70 72 64 Respiratory Rate 17 12 16 Blood Pressure 108/71 Pulse Oximetry 93 92 94 Oxygen Delivery 10/21/21 00:15 10/21/21 00:17 10/21/21 00:18 Temperature Pulse Rate 65 65 65 Respiratory Rate 18 19 17 Blood Pressure 116/69 Pulse Oximetry 95 95 94 Oxygen Delivery 10/21/21 00:38 10/21/21 00:45 10/21/21 00:47 Temperature Pulse Rate 65 63 62 Respiratory Rate 15 20 13 Blood Pressure 111/69 Pulse Oximetry 91 92 92 Oxygen Delivery 10/21/21 01:01 10/21/21 01:15 10/21/21 01:16 Temperature Pulse Rate 62 62 61 Respiratory Rate 15 13 13 Blood Pressure 113/68 107/73 Pulse Oximetry 93 93 90 Oxygen Delivery 10/21/21 01:30 10/21/21 01:32 10/21/21 01:45 Temperature Pulse Rate 60 61
[2021-10-21] MEDS: RIVAROXABAN 20 MG TABLET PO (15:49)
[2021-10-21] MEDS: CARBIDOPA/LEVODOPA 25/100 MG TABLET 2 TABLET PO ×2 (20:47→20:52)
[2021-10-22 05:40] VITALS: BP 139/76; PULSE 75; RESP 18; TEMP 36.4; O2SAT 95
[2021-10-22] MEDS: CARBIDOPA/LEVODOPA 25/100 MG TABLET 2 TABLET PO (06:05)
[2021-10-22] MEDS: CARBIDOPA/LEVODOPA 12.5/50 MG TABLET 1 TABLET PO ×4 (06:05→21:06)
[2021-10-22] MEDS: LINACLOTIDE 145 MCG CAPSULE 290 MCG PO (06:05)
[2021-10-22] MEDS: CALCIUM CARBONATE (OSCAL) 500 MG TABLET PO (08:55)
[2021-10-22] MEDS: FOLIC ACID 1 MG TABLET PO (08:55)
[2021-10-22] MEDS: MAGNESIUM OXIDE 200 MG TABLET PO (08:56)
[2021-10-22] MEDS: ROSUVASTATIN 10 MG TABLET PO (08:56)
[2021-10-22] MEDS: CHOLECALCIFEROL 1,000 UNITS TABLET 2000 UNITS PO (08:56)
[2021-10-22] MEDS: CYANOCOBALAMIN 1,000 MCG TABLET 1000 MCG PO (08:56)
[2021-10-22] MEDS: MIDODRINE HCL 2.5 MG TABLET 5 MG PO ×3 (08:57→17:37)
[2021-10-22 09:25] VITALS: O2SAT 94
--- NOTE | 2021-10-22 09:41 | PM.CNOR ---
Assessment and Plan Assessment and plan (1) AC joint derangement: Code(s): M24.9 - Joint derangement, unspecified Status: Acute Assessment and Plan: History, exam radiographs reviewed with the patient. Radiographs of the right shoulder reveal an AC joint separation and possible comminuted scapular fracture. Patient reports his pain is significantly improved over the last 1 day. His pain is mainly over the anterior aspect of the shoulder. The fracture type and injury as well as radiographs discussed with the patient and family. Operative and nonoperative treatment options reviewed. Recommended non operative treatment. Risk of nonunion, malunion or late displacement discussed. Stiffness, pain and possible dysfunction of the joint discussed. Fracture precautions and activity restrictions reviewed. The patient verbalizes understanding. He is currently in a shoulder immobilizer which he feels is uncomfortable. May switch to a sling if available. Can arrange for the outpatient orthopedic clinic to provide sling for patient comfort. Nonweightbearing right upper extremity. Patient will require further mobility assistance given he is currently relying on a walker for ambulation with history of Parkinson's disease and decreased mobility. PT and OT. Pain control. Ice. Okay to remove sling for hygiene purposes. (2) Fall from ground level: Code(s): W18.30XA - Fall on same level, unspecified, initial encounter Status: Acute (3) Impaired mobility: Code(s): Z74.09 - Other reduced mobility Status: Acute (4) Parkinsons disease: Code(s): G20 - Parkinson's disease Status: Acute (5) Scapular fracture: Qualifiers: Encounter type: initial encounter Scapula location: body Fracture type: closed Fracture alignment: displaced Laterality: right Qualified Code(s): S42.111A - Displaced fracture of body of scapula, right shoulder, initial encounter for closed fracture Code(s): S42.109A - Fracture of unspecified part of scapula, unspecified shoulder, initial encounter for closed fracture Status: Acute Assessment and Plan: The fracture type and injury as well as radiographs discussed with the patient and family. Operative and nonoperative treatment options reviewed. The patient elects for non operative treatment. Risk of nonunion, malunion or late displacement discussed. Stiffness, pain and possible dysfunction of the joint discussed. Fracture precautions and activity restrictions reviewed. The patient verbalizes understanding. Plan Reviewed radiographs, assessment and plan of care with attending physician and consulted surgeon, Dr. Marroquin. Agrees with current plan of care for nonweightbearing and conservative treatment versus operative treatment. Unsure if scapular fracture is new based on radiographs. No further recommendations at this time. History of Present Illness HPI Consult date: 10/22/21 Consult reason: fracture Chief complaint: AC joint separation, decreased mobility Narrative: 71-year-old male with a history of Parkinson's disease presented to the emergency room via EMS after a fall while shaving. Patient reports that he was shaving and lost his balance causing him to fall into the right shoulder. He had significant right shoulder pain. The pain was worse with any movement. Patient was evaluated in the emergency room and radiographs of the shoulder were obtained which reveal a comminuted fracture of the scapular body as well as AC joint widening. Patient admitted for further observation given history of Parkinson's and decreased mobility. Review of Systems Review of Systems: All systems reviewed & are unremarkable except as noted in HPI and below PMFSH Past Medical History Medical History (Updated 10/22/21 @ 16:46 by SHANELL Beck) Autonomic dysfunction BPH (benign prostatic hyperplasia) Constipation by delayed colonic transit Deep vein th
[2021-10-22] MEDS: CARBIDOPA/LEVODOPA 25/100 MG TABLET 1 TABLET PO ×3 (12:35→21:07)
[2021-10-22] MEDS: BISACODYL 10 MG SUPPOSITORY RECTAL (12:36)
[2021-10-22 14:00] VITALS: BP 102/67; PULSE 81; RESP 16; TEMP 36.5; O2SAT 95
--- NOTE | 2021-10-22 15:38 | PCPTNOTE ---
Continuing to wait on ortho consult prior to PT evaluation.
--- NOTE | 2021-10-22 15:44 | PM.IMPN ---
Progress Note: A&P Assessment and Plan (1) AC joint derangement: Code(s): M24.9 - Joint derangement, unspecified Status: Acute Assessment and Plan: Patient is in a cross body shoulder immobilizer. Orthopedic surgery consulted and appreciate recommendations. Pain control with [place] and Flexeril. (2) Impaired mobility: Code(s): Z74.09 - Other reduced mobility Status: Acute Assessment and Plan: PT and OT have been consulted. He will likely need jail placement for rehab, to which he is agreeable. (3) BPH (benign prostatic hyperplasia): Code(s): N40.0 - Benign prostatic hyperplasia without lower urinary tract symptoms Status: Acute Assessment and Plan: Continue home finasteride. Monitor urine output closely given history while receiving narcotic pain medications. (4) Fall from ground level: Code(s): W18.30XA - Fall on same level, unspecified, initial encounter Status: Acute Assessment and Plan: Fall precautions initiated. As above. (5) Chronic constipation: Code(s): K59.09 - Other constipation Status: Chronic Assessment and Plan: Continue miralax and bisacodyl suppository daily. Plan CODE STATUS: FULL CODE Disposition: Plan for discharge to rehab when cleared by ortho. Estimated LOS: 2 days Time Spent With Patient Time with patient: 15 - 25 minutes Subjective Date/time seen: 10/22/21 15:44 He is concerned about having a bowel movement. He reports taking miralax and a suppository every day at home to assist with this. He reports his pain is improved today, however, nursing reports the immobilizer is causing discomfort. No abdominal pain, N/V, shortness of breath or paresthesia. Review of Systems Review of Systems: All systems reviewed & are unremarkable except as noted in HPI and below Exam Narrative: General: No acute distress.? Frail older adult male, lying in bed. Mental Status/Psych: Awake, alert and oriented to person and place with clear speech. Flat affect. Skin: Skin fair, warm, dry and intact without rashes or lesions. HEENT: Normocephalic. Conjunctivae are clear. Sclera is non-icteric. PERRL. Hard of hearing. Oral mucosa pink and moist. Tongue midline. Neck: Supple. No JVD. Cardiac: S1 and S2 regular rate and rhythm. No murmurs, gallops, or rubs auscultated. Respiratory: Respirations even and unlabored. Lung sounds are clear to auscultation in all lobes bilaterally without wheezes, rhonchi, or rales. Abdominal: Abdomen soft, round and non-tender to palpation.? Bowel sounds present in all 4 quadrants. Extremities:? Right shoulder immobilizer intact +CMS, grossly normal ROM all other extremities. No edema. Radial and dorsalis pedis pulses +2 bilaterally. Neurological: No focal deficits. Objective Data Vital Signs Vital Signs: Vital Signs - 24 hr 10/21/21 21:45 10/22/21 05:40 10/22/21 08:57 Temperature 98.0 F 97.6 F Pulse Rate 61 75 Respiratory Rate 17 18 Blood Pressure 109/58 L 139/76 Pulse Oximetry 94 95 Oxygen Delivery Room Air 10/22/21 09:25 10/22/21 14:00 Temperature 97.7 F Pulse Rate 81 Respiratory Rate 16 Blood Pressure 102/67 Pulse Oximetry 94 95 Oxygen Delivery Room Air Intake/Output Intake/Output: Intake & Output 10/19/21 10/20/21 10/21/21 10/22/21 23:59 23:59 23:59 23:59 Intake Total 100 486 Output Total 200 1300 Balance -100 -814 Meds/Results Medications: Active Medications Generic Name Dose Route Start Last Admin Trade Name Freq PRN Reason Stop Dose Admin Hydrocodone Bitart/Acetaminophen 1 tab 10/21/21 03:36 10/21/21 08:48 Hydrocodone/Acetaminophen (*Crx) 5-325 Mg Tablet PO 1 tab Q4H PRN Administration Pain Rated 4-6 Bisacodyl 10 mg 10/22/21 11:10 10/22/21 12:36 Bisacodyl 10 Mg Suppository RECTAL 10 mg QAM ADDY Administration Calcium Carbonate 500 mg
[2021-10-22] MEDS: RIVAROXABAN 20 MG TABLET PO (17:37)
[2021-10-22 22:00] VITALS: BP 119/69; PULSE 61; RESP 16; TEMP 36.9; O2SAT 94
[2021-10-23 06:00] VITALS: BP 122/68; PULSE 57; RESP 16; TEMP 36.8; O2SAT 94
[2021-10-23 06:18] LABS: Hematocrit 41.6 % (42.0-52.0); Mean Corpuscular HGB Conc 33.7 g/dl (32-36); Mean Corpuscular Hemoglobin 33.1 pg (26-34); Mean Corpuscular Volume 98.3 fl (80-100); Mean Platelet Volume 12.4 fl (7.4-10.4); Platelet Count Result 167 k/mm3 (150-375); Red Blood Count 4.23 M/mm3 (4.6-6.20); Red Cell Distribution Width 12.8 % (11.5-14.5); White Blood Count 6.5 K/mm3 (4.5-10.0)
[2021-10-23] MEDS: CARBIDOPA/LEVODOPA 25/100 MG TABLET 1 TABLET PO ×4 (06:26→19:53)
[2021-10-23] MEDS: CARBIDOPA/LEVODOPA 12.5/50 MG TABLET 1 TABLET PO ×4 (06:26→19:52)
[2021-10-23] MEDS: LINACLOTIDE 145 MCG CAPSULE 290 MCG PO (06:27)
[2021-10-23 06:31] LABS: Anion Gap 3 mmol/L (8-16); Blood Urea Nitrogen 22 mg/dL (9-20); Calcium 8.7 mg/dL (8.4-10.2); Carbon Dioxide 27 mmol/L (22-30); Chloride 109 mmol/L (98-107); Estimated CRCL calculation 62 ml/min; Estimated Glomerular Filt Rate > 60; Glucose 92 mg/dL (65-110); Potassium 3.7 mmol/L (3.4-5.0); Sodium 139 mmol/L (137-145)
[2021-10-23] MEDS: FOLIC ACID 1 MG TABLET PO (09:53)
[2021-10-23] MEDS: MIDODRINE HCL 2.5 MG TABLET 5 MG PO ×3 (09:53→16:58)
[2021-10-23] MEDS: ROSUVASTATIN 10 MG TABLET PO (09:53)
[2021-10-23] MEDS: MAGNESIUM OXIDE 200 MG TABLET PO (09:53)
[2021-10-23] MEDS: CALCIUM CARBONATE (OSCAL) 500 MG TABLET PO (09:54)
[2021-10-23] MEDS: CHOLECALCIFEROL 1,000 UNITS TABLET 2000 UNITS PO (09:54)
[2021-10-23] MEDS: CYANOCOBALAMIN 1,000 MCG TABLET 1000 MCG PO (09:54)
[2021-10-23] MEDS: polyethylene glycoL 3350 17 GM POWD.PACK PO (09:55)
--- NOTE | 2021-10-23 10:43 | PM.IMPN ---
Progress Note: A&P Assessment and Plan (1) AC joint derangement: Code(s): M24.9 - Joint derangement, unspecified Status: Acute Assessment and Plan: Patient is in a cross body shoulder immobilizer. Orthopedic surgery consulted and appreciate recommendations. Pain control with [place] and Flexeril. (2) Impaired mobility: Code(s): Z74.09 - Other reduced mobility Status: Acute Assessment and Plan: PT and OT have been consulted. Awaiting long term placement for rehab, to which he is agreeable. (3) BPH (benign prostatic hyperplasia): Code(s): N40.0 - Benign prostatic hyperplasia without lower urinary tract symptoms Status: Acute Assessment and Plan: Continue home finasteride. (4) Fall from ground level: Code(s): W18.30XA - Fall on same level, unspecified, initial encounter Status: Acute Assessment and Plan: Fall precautions initiated. As above. (5) Chronic constipation: Code(s): K59.09 - Other constipation Status: Chronic Assessment and Plan: Continue miralax and bisacodyl suppository daily. BM 10/22/21 Plan CODE STATUS: FULL CODE Disposition: Plan for discharge to rehab when cleared by ortho. Estimated LOS: DC when rehab authorization received from SNF Time Spent With Patient Time with patient: 15 - 25 minutes Subjective Date/time seen: 10/23/21 10:43 He had a BM yesterday, but not today. No nausea, vomiting or abdominal pain. He is eating well. He would like to get up and walk to the bathroom. He thinks he can do this easier after OT gave him a can/walker. No new complaints or overnight events. Review of Systems Review of Systems: All systems reviewed & are unremarkable except as noted in HPI and below Exam Narrative: General: No acute distress.? Frail older adult male, lying in bed. Mental Status/Psych: Awake, alert and oriented to person and place with clear speech but slow to respond to questions. Flat affect. Skin: Skin fair, warm, dry and intact without rashes or lesions. HEENT: Normocephalic. Conjunctivae are clear. Sclera is non-icteric. PERRL. Hard of hearing. Oral mucosa pink and moist. Tongue midline. Neck: Supple. No JVD. Cardiac: S1 and S2 regular rate and rhythm. No murmurs, gallops, or rubs auscultated. Respiratory: Respirations even and unlabored. Lung sounds are clear to auscultation in all lobes bilaterally without wheezes, rhonchi, or rales. Abdominal: Abdomen soft, round and non-tender to palpation.? Bowel sounds present in all 4 quadrants. Extremities:? Right shoulder immobilizer intact +CMS, grossly normal ROM all other extremities. No edema. Radial and dorsalis pedis pulses +2 bilaterally. Neurological: No focal deficits. Objective Data Vital Signs Vital Signs: Vital Signs - 24 hr 10/22/21 14:00 10/22/21 22:00 10/22/21 20:00 Temperature 97.7 F 98.5 F Pulse Rate 81 61 Respiratory Rate 16 16 Blood Pressure 102/67 119/69 Pulse Oximetry 95 94 Oxygen Delivery Room Air 10/23/21 06:00 10/23/21 07:52 Temperature 98.3 F Pulse Rate 57 L Respiratory Rate 16 Blood Pressure 122/68 Pulse Oximetry 94 Oxygen Delivery Room Air Intake/Output Intake/Output: Intake & Output 10/20/21 10/21/21 10/22/21 10/23/21 23:59 23:59 23:59 23:59 Intake Total 100 586 840 Output Total 200 1440 900 Balance -100 -854 -60 Meds/Results Medications: Active Medications Generic Name Dose Route Start Last Admin Trade Name Freq PRN Reason Stop Dose Admin Hydrocodone Bitart/Acetaminophen 1 tab 10/21/21 03:36 10/21/21 08:48 Hydrocodone/Acetaminophen (*Crx) 5-325 Mg Tablet PO 1 tab Q4H PRN Administration Pain Rated 4-6 Bisacodyl 10 mg 10/22/21 11:10 10/22/21 12:36 Bisacodyl 10 Mg Suppository RECTAL 10 mg QAM ADDY Administration Calcium Carbonate 500 mg 10/21/21 09:00 10/23/21 09:54 Calcium Carbonate ([place]) 50
[2021-10-23 13:27] VITALS: BP 96/67; PULSE 71; RESP 16; TEMP 36.2; O2SAT 94
[2021-10-23] MEDS: RIVAROXABAN 20 MG TABLET PO (16:57)
[2021-10-23] MEDS: BISACODYL 10 MG SUPPOSITORY RECTAL (17:23)
[2021-10-23 21:41] VITALS: BP 106/59; PULSE 61; RESP 16; TEMP 36.7; O2SAT 96
[2021-10-24] MEDS: HYDROcodone/acetaminophen (*CRX) 5-325 MG TABLET 1 TAB PO (04:58)
[2021-10-24 05:50] VITALS: BP 110/69; PULSE 57; RESP 16; TEMP 37.4; O2SAT 96
[2021-10-24] MEDS: LINACLOTIDE 145 MCG CAPSULE 290 MCG PO (06:38)
[2021-10-24] MEDS: CARBIDOPA/LEVODOPA 12.5/50 MG TABLET 1 TABLET PO ×4 (06:40→20:21)
[2021-10-24] MEDS: CARBIDOPA/LEVODOPA 25/100 MG TABLET 1 TABLET PO ×4 (06:40→20:21)
[2021-10-24] MEDS: CYCLOBENZAPRINE HCL 10 MG TABLET PO (09:15)
[2021-10-24] MEDS: FOLIC ACID 1 MG TABLET PO (09:16)
[2021-10-24] MEDS: MAGNESIUM OXIDE 200 MG TABLET PO (09:16)
[2021-10-24] MEDS: ROSUVASTATIN 10 MG TABLET PO (09:16)
[2021-10-24] MEDS: MIDODRINE HCL 2.5 MG TABLET 5 MG PO ×3 (09:16→17:48)
[2021-10-24] MEDS: CALCIUM CARBONATE (OSCAL) 500 MG TABLET PO (09:16)
[2021-10-24] MEDS: CHOLECALCIFEROL 1,000 UNITS TABLET 2000 UNITS PO (09:17)
[2021-10-24] MEDS: CYANOCOBALAMIN 1,000 MCG TABLET 1000 MCG PO (09:17)
[2021-10-24] MEDS: polyethylene glycoL 3350 17 GM POWD.PACK PO (09:17)
--- NOTE | 2021-10-24 10:22 | PM.IMPN ---
Progress Note: A&P Assessment and Plan (1) AC joint derangement: Code(s): M24.9 - Joint derangement, unspecified Status: Acute Assessment and Plan: Patient is in a cross body shoulder immobilizer. Orthopedic surgery consulted and appreciate recommendations. Pain control with [place] and Flexeril. (2) Impaired mobility: Code(s): Z74.09 - Other reduced mobility Status: Acute Assessment and Plan: PT and OT have been consulted. Awaiting [facility] placement for rehab, to which he is agreeable. (3) BPH (benign prostatic hyperplasia): Code(s): N40.0 - Benign prostatic hyperplasia without lower urinary tract symptoms Status: Acute Assessment and Plan: Continue home finasteride. (4) Fall from ground level: Code(s): W18.30XA - Fall on same level, unspecified, initial encounter Status: Acute Assessment and Plan: Fall precautions initiated. As above. (5) Chronic constipation: Code(s): K59.09 - Other constipation Status: Chronic Assessment and Plan: Continue miralax and bisacodyl suppository daily. BM 10/22/21 Plan CODE STATUS: FULL CODE Disposition: Plan for discharge to rehab when cleared by ortho. Estimated LOS: DC when rehab authorization received from SNF Time Spent With Patient Time with patient: 15 - 25 minutes Subjective Date/time seen: 10/24/21 10:22 He had difficulty sleeping last night due to the RUE shoulder immobilizer. He did take a pain pill that helped. No BM yesterday or today. He denies abdominal pain, N/V, or anorexia. No paresthesia or pallor to RUE. Review of Systems Review of Systems: All systems reviewed & are unremarkable except as noted in HPI and below Exam Narrative: General: No acute distress.? Frail older adult male, lying in bed. Mental Status/Psych: Awake, alert and oriented to person and place with clear speech but slow to respond to questions. Flat affect. Skin: Skin fair, warm, dry and intact without rashes or lesions. HEENT: Normocephalic. Conjunctivae are clear. Sclera is non-icteric. PERRL. Hard of hearing. Oral mucosa pink and moist. Tongue midline. Neck: Supple. No JVD. Cardiac: S1 and S2 regular rate and rhythm. No murmurs, gallops, or rubs auscultated. Respiratory: Respirations even and unlabored. Lung sounds are clear to auscultation in all lobes bilaterally without wheezes, rhonchi, or rales. Abdominal: Abdomen soft, round and non-tender to palpation.? Bowel sounds present in all 4 quadrants. Extremities:? Right shoulder immobilizer intact +CMS, grossly normal ROM all other extremities. No edema. Radial and dorsalis pedis pulses +2 bilaterally. Neurological: No focal deficits. Objective Data Vital Signs Vital Signs: Vital Signs - 24 hr 10/23/21 10:28 10/23/21 13:27 10/23/21 21:41 Temperature 97.1 F L 98.1 F Pulse Rate 71 61 Respiratory Rate 16 16 Blood Pressure 96/67 L 106/59 L Pulse Oximetry 94 96 Oxygen Delivery Room Air 10/24/21 05:50 Temperature 99.4 F Pulse Rate 57 L Respiratory Rate 16 Blood Pressure 110/69 Pulse Oximetry 96 Oxygen Delivery Intake/Output Intake/Output: Intake & Output 10/21/21 10/22/21 10/23/21 10/24/21 23:59 23:59 23:59 23:59 Intake Total 972 804 5041 736 Output Total 200 1440 1400 400 Balance -100 -854 70 336 Meds/Results Medications: Active Medications Generic Name Dose Route Start Last Admin Trade Name Freq PRN Reason Stop Dose Admin Hydrocodone Bitart/Acetaminophen 1 tab 10/21/21 03:36 10/24/21 04:58 Hydrocodone/Acetaminophen (*Crx) 5-325 Mg Tablet PO 1 tab Q4H PRN Administration Pain Rated 4-6 Bisacodyl 10 mg 10/22/21 11:10 10/23/21 17:23 Bisacodyl 10 Mg Suppository RECTAL 10 mg QAM ADDY Administration Calcium Carbonate 500 mg 10/21/21 09:00 10/24/21 09:16 Calcium Carbonate (Oscal) 500 Mg Tablet PO 500 mg DAILY ADDY Administr
[2021-10-24] MEDS: BISACODYL 10 MG SUPPOSITORY RECTAL (12:59)
--- NOTE | 2021-10-24 13:00 | PCOTNOTE ---
Attempted to see patient twice this date. First attempt, patient was sleeping soundly and did not disturb. Second attempt, patient was sitting on toilet upon entering and RN stated, I just gave him a suppository, so he's gonna try to sit here for about 20 minutes.
[2021-10-24 14:00] VITALS: BP 115/70; PULSE 65; RESP 20; TEMP 36; O2SAT 95
[2021-10-24] MEDS: RIVAROXABAN 20 MG TABLET PO (17:48)
[2021-10-24 22:00] VITALS: BP 106/64; PULSE 58; RESP 18; TEMP 36.8; O2SAT 92
[2021-10-24 22:19] VITALS: O2SAT 93
[2021-10-24] MEDS: SENNA/DOCUSATE SODIUM TABLET 1 TAB PO (22:48)
[2021-10-24] MEDS: CARBIDOPA/LEVODOPA 25/100 MG TABLET 2 TABLET PO (22:48)
[2021-10-25 05:35] VITALS: BP 115/74; PULSE 57; RESP 17; TEMP 36.6; O2SAT 94
[2021-10-25] MEDS: CYCLOBENZAPRINE HCL 10 MG TABLET PO (06:09)
[2021-10-25] MEDS: HYDROcodone/acetaminophen (*CRX) 5-325 MG TABLET 1 TAB PO (06:09)
[2021-10-25] MEDS: LINACLOTIDE 145 MCG CAPSULE 290 MCG PO (06:09)
[2021-10-25] MEDS: CARBIDOPA/LEVODOPA 12.5/50 MG TABLET 1 TABLET PO ×4 (06:09→19:42)
[2021-10-25] MEDS: CARBIDOPA/LEVODOPA 25/100 MG TABLET 1 TABLET PO ×4 (06:10→19:57)
[2021-10-25 06:55] LABS: Hematocrit 41.7 % (42.0-52.0); Hemoglobin 13.8 g/dL (14.0-18.0); Mean Corpuscular HGB Conc 33.1 g/dl (32-36); Mean Corpuscular Volume 99.8 fl (80-100); Mean Platelet Volume 12.5 fl (7.4-10.4); Platelet Count Result 174 k/mm3 (150-375); Red Blood Count 4.18 M/mm3 (4.6-6.20); Red Cell Distribution Width 12.8 % (11.5-14.5); White Blood Count 6.1 K/mm3 (4.5-10.0)
[2021-10-25 06:59] LABS: Anion Gap 4 mmol/L (8-16); Blood Urea Nitrogen 24 mg/dL (9-20); Calcium 8.4 mg/dL (8.4-10.2); Carbon Dioxide 27 mmol/L (22-30); Chloride 105 mmol/L (98-107); Estimated CRCL calculation 62 ml/min; Estimated Glomerular Filt Rate > 60; Glucose 96 mg/dL (65-110); Potassium 4.2 mmol/L (3.4-5.0); Sodium 136 mmol/L (137-145)
[2021-10-25] MEDS: MIDODRINE HCL 2.5 MG TABLET 5 MG PO ×3 (08:09→17:11)
[2021-10-25] MEDS: polyethylene glycoL 3350 17 GM POWD.PACK PO (08:09)
[2021-10-25] MEDS: FOLIC ACID 1 MG TABLET PO (08:10)
[2021-10-25] MEDS: CHOLECALCIFEROL 1,000 UNITS TABLET 2000 UNITS PO (08:10)
[2021-10-25] MEDS: CALCIUM CARBONATE (OSCAL) 500 MG TABLET PO (08:10)
[2021-10-25] MEDS: BISACODYL 10 MG SUPPOSITORY RECTAL (08:11)
[2021-10-25] MEDS: CYANOCOBALAMIN 1,000 MCG TABLET 1000 MCG PO (08:11)
[2021-10-25] MEDS: MAGNESIUM OXIDE 200 MG TABLET PO (08:11)
[2021-10-25] MEDS: ROSUVASTATIN 10 MG TABLET PO (08:11)
--- NOTE | 2021-10-25 09:32 | PM.IMPN ---
Progress Note: A&P Assessment and Plan (1) AC joint derangement: Code(s): M24.9 - Joint derangement, unspecified Status: Acute Assessment and Plan: Patient is in a cross body shoulder immobilizer. Orthopedic surgery consulted and appreciate recommendations. Pain control with [place] and Flexeril. Stable. (2) Impaired mobility: Code(s): Z74.09 - Other reduced mobility Status: Acute Assessment and Plan: PT and OT have been consulted. Awaiting retirement placement for rehab, to which he is agreeable. (3) BPH (benign prostatic hyperplasia): Code(s): N40.0 - Benign prostatic hyperplasia without lower urinary tract symptoms Status: Acute Assessment and Plan: Continue home finasteride. Stable (4) Fall from ground level: Code(s): W18.30XA - Fall on same level, unspecified, initial encounter Status: Acute Assessment and Plan: Fall precautions initiated. As above. (5) Chronic constipation: Code(s): K59.09 - Other constipation Status: Chronic Assessment and Plan: Continue miralax and bisacodyl suppository daily. Last BM 10/25/21 Stable. Plan CODE STATUS: FULL CODE Disposition: Plan for discharge to rehab when insurance authorization confirmed. Estimated LOS: DC when rehab authorization received from SNF Time Spent With Patient Time with patient: 15 - 25 minutes Subjective Date/time seen: 10/25/21 09:32 No new complaints or overnight events. He had a BM today. Awaiting rehab authorization. Review of Systems Review of Systems: All systems reviewed & are unremarkable except as noted in HPI and below Exam Narrative: General: No acute distress.? lying in bed. Mental Status/Psych: Awake, alert and oriented to person and place with clear speech but slow to respond to questions. Flat affect. Skin: Skin fair, warm, dry and intact without rashes or lesions. HEENT: Normocephalic. Conjunctivae are clear. Pupils equal and round. Oral mucosa pink and moist. Tongue midline. Neck: No JVD. Cardiac: S1 and S2 regular rate and rhythm. No murmurs, gallops, or rubs auscultated. Respiratory: Respirations even and unlabored. Lung sounds are clear to auscultation in all lobes bilaterally. Abdominal: Abdomen soft, round and non-tender to palpation.? Bowel sounds present in all 4 quadrants. Extremities:? Right shoulder immobilizer intact +CMS, grossly normal ROM all other extremities. No edema. Radial and dorsalis pedis pulses +2 bilaterally. Neurological: No focal deficits. Objective Data Vital Signs Vital Signs: Vital Signs - 24 hr 10/24/21 14:00 10/24/21 22:00 10/24/21 22:19 Temperature 96.8 F L 98.2 F Pulse Rate 65 58 L Respiratory Rate 20 18 Blood Pressure 115/70 106/64 Pulse Oximetry 95 92 93 Oxygen Delivery Room Air 10/25/21 05:35 Temperature 97.9 F Pulse Rate 57 L Respiratory Rate 17 Blood Pressure 115/74 Pulse Oximetry 94 Oxygen Delivery Intake/Output Intake/Output: Intake & Output 10/22/21 10/23/21 10/24/21 10/25/21 23:59 23:59 23:59 23:59 Intake Total 586 1470 1216 490 Output Total 1440 1400 400 250 Balance -854 70 816 240 Meds/Results Medications: Active Medications Generic Name Dose Route Start Last Admin Trade Name Freq PRN Reason Stop Dose Admin Hydrocodone Bitart/Acetaminophen 1 tab 10/21/21 03:36 10/25/21 06:09 Hydrocodone/Acetaminophen (*Crx) 5-325 Mg Tablet PO 1 tab Q4H PRN Administration Pain Rated 4-6 Bisacodyl 10 mg 10/22/21 11:10 10/25/21 08:11 Bisacodyl 10 Mg Suppository RECTAL 10 mg QAM ADDY Administration Calcium Carbonate 500 mg 10/21/21 09:00 10/25/21 08:10 Calcium Carbonate (Oscal) 500 Mg Tablet PO 500 mg DAILY ADDY Administration Carbidopa/Levodopa 2 tablet 10/21/21 21:00 10/24/21 22:48 Carbidopa/Levodopa 25/100 Mg Tablet PO 2 tablet HS ADDY Administration Carbidopa/Levod
[2021-10-25 14:00] VITALS: BP 101/66; PULSE 66; RESP 20; TEMP 35.9; O2SAT 94
[2021-10-25] MEDS: RIVAROXABAN 20 MG TABLET PO (17:12)
[2021-10-25] MEDS: SENNA/DOCUSATE SODIUM TABLET 1 TAB PO (21:18)
[2021-10-25] MEDS: CARBIDOPA/LEVODOPA 25/100 MG TABLET 2 TABLET PO (21:18)
[2021-10-25 22:00] VITALS: BP 99/58; PULSE 61; RESP 15; TEMP 36.1; O2SAT 97
[2021-10-26] MEDS: HYDROcodone/acetaminophen (*CRX) 5-325 MG TABLET 1 TAB PO ×2 (04:09→14:26)
[2021-10-26] MEDS: LINACLOTIDE 145 MCG CAPSULE 290 MCG PO (05:32)
[2021-10-26] MEDS: CARBIDOPA/LEVODOPA 25/100 MG TABLET 1 TABLET PO ×4 (05:33→19:53)
[2021-10-26] MEDS: CARBIDOPA/LEVODOPA 12.5/50 MG TABLET 1 TABLET PO ×4 (05:34→19:53)
[2021-10-26 06:00] VITALS: BP 107/64; PULSE 60; RESP 16; TEMP 36.1; O2SAT 98
[2021-10-26] MEDS: CHOLECALCIFEROL 1,000 UNITS TABLET 2000 UNITS PO (08:36)
[2021-10-26] MEDS: FOLIC ACID 1 MG TABLET PO (08:36)
[2021-10-26] MEDS: ROSUVASTATIN 10 MG TABLET PO (08:36)
[2021-10-26] MEDS: CYANOCOBALAMIN 1,000 MCG TABLET 1000 MCG PO (08:36)
[2021-10-26] MEDS: polyethylene glycoL 3350 17 GM POWD.PACK PO (08:37)
[2021-10-26] MEDS: MIDODRINE HCL 2.5 MG TABLET 5 MG PO ×3 (08:37→16:45)
[2021-10-26] MEDS: MAGNESIUM OXIDE 200 MG TABLET PO (08:37)
[2021-10-26] MEDS: CALCIUM CARBONATE (OSCAL) 500 MG TABLET PO (08:37)
--- NOTE | 2021-10-26 09:09 | PM.PNORT ---
Progress Note: A&P Assessment and Plan (1) Scapular fracture: Qualifiers: Encounter type: subsequent encounter Scapula location: body Fracture type: closed Fracture alignment: displaced Laterality: right Code(s): S42.109A - Fracture of unspecified part of scapula, unspecified shoulder, initial encounter for closed fracture Status: Acute Assessment and Plan: Radiographs of the right shoulder reveal an AC joint separation and possible comminuted scapular fracture.? Patient reports resolution of pain over AC joint. Increased pain/intermittent spasm of the scapula of the right shoulder. Continue conservative treatment at this time. Nonweightbearing right upper extremity.? Patient will require further mobility assistance given he is currently relying on a walker for ambulation with history of Parkinson's disease and decreased mobility.? PT and OT. ? Pain control.? Ice. Plan to switch to a sling provided by the outpatient orthopedic office. Okay to remove sling for hygiene purposes. (2) AC joint derangement: Code(s): M24.9 - Joint derangement, unspecified Status: Acute (3) Fall from ground level: Code(s): W18.30XA - Fall on same level, unspecified, initial encounter Status: Acute Plan Reviewed patients radiographs, assessment and pain concerns/complaints with attending MD and consulted surgeon, Dr. Marrqouin. Agrees with above plan of care. No further recommendations at this time. Subjective Subjective Date/Time Seen: 10/26/21 09:09 Interval history: Patient sitting in the chair. Reports improvement in pain. Still with discomfort from shoulder immobilizer. Improvement in pain over the AC joint. Now with majority of the pain/spasms reported from a posterior aspect over the scapula. No other reported concerns. Review of Systems Review of Systems: All systems reviewed & are unremarkable except as noted in HPI and below Exam Const: General: comfortable and no acute distress Orientation/consciousness: patient oriented x3 and Other orientation findings (hx of Parkinson's, slow speech ) Limitations: altered mental status HENMT: Head: normal to inspection Mouth: Yes moist mucous membranes Eyes: General: appearance normal, both eyes and all related structures Neck: Neck: supple and no JVD Resp: Effort & Inspection: normal respiratory effort Cardio: Rate: regular rate Rhythm: regular rhythm GI: Inspection: non-distended GI Palp: Yes Soft to palpation and No Tenderness to palpation present (GI) Neuro: General: gait normal Cognition (Neuro): normal cognition Speech: normal speech Extrem: Right upper extremity: shoulder/upper arm (ROM deferred due to recent fracture ) abnormal to inspection A-C step-off, tenderness of the scapula; not of the A-C joint, swelling of the A-C joint and other (incisions noted on left/right chest wall (old, healed) ); no ecchymosis, elbow/forearm normal to inspection and normal ROM; no tenderness and no swelling, wrist normal to inspection and Extremity exam: right hand (contracted but able to open, decreased rn forensic strength ) normal to inspection, neurosensory exam normal and abnormal ROM of finger Psych: Mental Status: mental status grossly normal Affect: normal affect Objective Data Vital Signs Vital Signs: Vital Signs - 24 hr 10/25/21 14:00 10/25/21 22:00 10/25/21 20:00 Temperature 35.9 C L 36.1 C L Pulse Rate 66 61 Respiratory Rate 20 15 Blood Pressure 101/66 99/58 L Pulse Oximetry 94 97 Oxygen Delivery Room Air 10/26/21 06:00 Temperature 36.1 C L Pulse Rate 60 Respiratory Rate 16 Blood Pressure 107/64 Pulse Oximetry 98 Oxygen Delivery Intake/Output Intake/Output: Intake & Output 10/23/21 10/24/21 10/25/21 10/26/21 23:59 23:59 23:59 23:59 Intake Total 1470 1216 934 200 Output Total 1400 400 500 400 Balance 70 816 434 -200 Meds/Results Medications: Active Medications Generic Name Dose Route Sta
--- NOTE | 2021-10-26 12:10 | PC.NURSE ---
patient very upset about denial to acute rehab,spoke to . wants to appeal.
--- NOTE | 2021-10-26 12:14 | PM.IMPN ---
Progress Note: A&P Assessment and Plan (1) AC joint derangement: Code(s): M24.9 - Joint derangement, unspecified Status: Acute Assessment and Plan: Patient is in a cross body shoulder immobilizer. Non-weight bearing. Orthopedic surgery consulted and appreciate recommendations. Pain control with [place] and Flexeril. Stable. (2) Impaired mobility: Code(s): Z74.09 - Other reduced mobility Status: Acute Assessment and Plan: PT and OT have been consulted. Awaiting rehab authorization. (3) BPH (benign prostatic hyperplasia): Code(s): N40.0 - Benign prostatic hyperplasia without lower urinary tract symptoms Status: Acute Assessment and Plan: Continue home finasteride. Stable (4) Fall from ground level: Code(s): W18.30XA - Fall on same level, unspecified, initial encounter Status: Acute Assessment and Plan: Fall precautions initiated. As above. (5) Chronic constipation: Code(s): K59.09 - Other constipation Status: Chronic Assessment and Plan: Continue miralax and bisacodyl suppository daily. Last BM 10/26/21. No GI complaints. Stable. Plan CODE STATUS: FULL CODE Disposition: Plan for discharge to rehab when insurance authorization confirmed. Estimated LOS: DC when rehab authorization received from SNF Time Spent With Patient Time with patient: less than 15 minutes Subjective Date/time seen: 10/26/21 12:14 No new complaints or overnight events. He is hoping to get an arm sling from Ortho instead of the immobilizer as it is hard for him to sleep. Patient is waiting for re Review of Systems Review of Systems: All systems reviewed & are unremarkable except as noted in HPI and below Exam Narrative: General: No acute distress.? lying in bed. Mental Status/Psych: Awake, alert and oriented to person and place with clear speech but slow to respond to questions. Flat affect. Skin: Skin fair, warm, dry and intact without rashes or lesions. HEENT: Normocephalic. Conjunctivae are clear. Pupils equal and round. Oral mucosa pink and moist. Tongue midline. Neck: No JVD. Cardiac: S1 and S2 regular rate and rhythm. No murmurs, gallops, or rubs auscultated. Respiratory: Respirations even and unlabored. Lung sounds are clear to auscultation in all lobes bilaterally. Abdominal: Abdomen soft, round and non-tender to palpation.? Bowel sounds present in all 4 quadrants. Extremities:? Right shoulder immobilizer intact +CMS, grossly normal ROM all other extremities. No edema. Radial and dorsalis pedis pulses +2 bilaterally. Neurological: No focal deficits. Objective Data Vital Signs Vital Signs: Vital Signs - 24 hr 10/25/21 14:00 10/25/21 22:00 10/25/21 20:00 Temperature 96.7 F L 97.0 F L Pulse Rate 66 61 Respiratory Rate 20 15 Blood Pressure 101/66 99/58 L Pulse Oximetry 94 97 Oxygen Delivery Room Air 10/26/21 06:00 10/26/21 08:35 Temperature 96.9 F L Pulse Rate 60 Respiratory Rate 16 Blood Pressure 107/64 Pulse Oximetry 98 Oxygen Delivery Room Air Intake/Output Intake/Output: Intake & Output 10/23/21 10/24/21 10/25/21 10/26/21 23:59 23:59 23:59 23:59 Intake Total 1470 1216 934 560 Output Total 1400 400 500 400 Balance 70 816 434 160 Meds/Results Medications: Active Medications Generic Name Dose Route Start Last Admin Trade Name Freq PRN Reason Stop Dose Admin Hydrocodone Bitart/Acetaminophen 1 tab 10/21/21 03:36 10/26/21 04:09 Hydrocodone/Acetaminophen (*Crx) 5-325 Mg Tablet PO 1 tab Q4H PRN Administration Pain Rated 4-6 Bisacodyl 10 mg 10/22/21 11:10 10/26/21 08:39 Bisacodyl 10 Mg Suppository RECTAL 10 mg QAM ADDY Administration Calcium Carbonate 500 mg 10/21/21 09:00 10/26/21 08:37 Calcium Carbonate (Oscal) 500 Mg Tablet PO 500 mg DAILY ADDY Administration Carbidopa/Levodopa 2 tablet 10/21/21 21:00
[2021-10-26 14:00] VITALS: BP 113/65; PULSE 59; RESP 16; TEMP 36.3; O2SAT 94
[2021-10-26] MEDS: RIVAROXABAN 20 MG TABLET PO (16:44)
[2021-10-26] MEDS: SENNA/DOCUSATE SODIUM TABLET 1 TAB PO (19:54)
[2021-10-26 22:00] VITALS: BP 126/68; PULSE 82; RESP 16; TEMP 37; O2SAT 98
[2021-10-27] MEDS: CARBIDOPA/LEVODOPA 25/100 MG TABLET 2 TABLET PO ×2 (00:13→21:00)
[2021-10-27] MEDS: CARBIDOPA/LEVODOPA 12.5/50 MG TABLET 1 TABLET PO ×4 (05:50→19:39)
[2021-10-27] MEDS: LINACLOTIDE 145 MCG CAPSULE 290 MCG PO (05:50)
[2021-10-27] MEDS: CARBIDOPA/LEVODOPA 25/100 MG TABLET 1 TABLET PO ×4 (05:50→19:42)
[2021-10-27 06:00] VITALS: BP 118/70; PULSE 61; RESP 18; TEMP 36.8; O2SAT 96
[2021-10-27] MEDS: MAGNESIUM OXIDE 200 MG TABLET PO (08:11)
[2021-10-27] MEDS: BISACODYL 10 MG SUPPOSITORY RECTAL (08:11)
[2021-10-27] MEDS: FOLIC ACID 1 MG TABLET PO (08:11)
[2021-10-27] MEDS: MIDODRINE HCL 2.5 MG TABLET 5 MG PO ×3 (08:11→17:19)
[2021-10-27] MEDS: CYANOCOBALAMIN 1,000 MCG TABLET 1000 MCG PO (08:11)
[2021-10-27] MEDS: CHOLECALCIFEROL 1,000 UNITS TABLET 2000 UNITS PO (08:11)
[2021-10-27] MEDS: polyethylene glycoL 3350 17 GM POWD.PACK PO (08:12)
[2021-10-27] MEDS: CALCIUM CARBONATE (OSCAL) 500 MG TABLET PO (08:12)
[2021-10-27] MEDS: ROSUVASTATIN 10 MG TABLET PO (08:12)
[2021-10-27 10:16] VITALS: O2SAT 94
--- NOTE | 2021-10-27 11:18 | PM.IMPN ---
Progress Note: A&P Assessment and Plan (1) AC joint derangement: Code(s): M24.9 - Joint derangement, unspecified Status: Acute Assessment and Plan: Continue shoulder immobilizer. Non-weight bearing. Orthopedic surgery consulted and appreciate recommendations. Pain control with [place] and Flexeril. Stable. (2) Impaired mobility: Code(s): Z74.09 - Other reduced mobility Status: Acute Assessment and Plan: PT and OT have been consulted. Awaiting acute rehab authorization. Appeal placed 10/26/21 and pending. (3) BPH (benign prostatic hyperplasia): Code(s): N40.0 - Benign prostatic hyperplasia without lower urinary tract symptoms Status: Acute Assessment and Plan: Continue home finasteride. Stable (4) Fall from ground level: Code(s): W18.30XA - Fall on same level, unspecified, initial encounter Status: Acute Assessment and Plan: Fall precautions initiated. As above. (5) Chronic constipation: Code(s): K59.09 - Other constipation Status: Chronic Assessment and Plan: Continue miralax and bisacodyl suppository daily. He reports BM today. No GI complaints. Stable. Plan CODE STATUS: FULL CODE Disposition: Plan for discharge to acute rehab when insurance authorization obtained Time Spent With Patient Time with patient: 15 - 25 minutes Subjective Date/time seen: 10/27/21 11:18 He is frustrated that acute rehab was denied. His appealed and this is currently pending. He reports right arm pain with movement, but none at rest. No abd pain, N/V/D or constipation. He reports to me he is having bowel movements, however this is not documented in I/Os. No chest pain or SOB. Review of Systems Review of Systems: All systems reviewed & are unremarkable except as noted in HPI and below Exam Narrative: General: No acute distress.?Sitting up in the chair. Mental Status/Psych: Awake, alert and oriented to person and place with clear speech but slow to respond to questions. Flat affect. Skin: Skin fair, warm, dry and intact without rashes or lesions. HEENT: Normocephalic. Conjunctivae are clear. Pupils equal and round. Oral mucosa pink and moist. Neck: No JVD. Cardiac: S1 and S2 regular rate and rhythm. No murmurs, gallops, or rubs auscultated. Respiratory: Respirations even and unlabored. Lung sounds are clear to auscultation in all lobes bilaterally. No retractions. Abdomen: soft, round and non-tender to palpation.? Bowel sounds present in all 4 quadrants. Extremities:? Right shoulder immobilizer intact +CMS, grossly normal ROM all other extremities. No edema. Radial and dorsalis pedis pulses +2 bilaterally. Neurological: No focal deficits. Objective Data Vital Signs Vital Signs: Vital Signs - 24 hr 10/26/21 14:00 10/26/21 20:00 10/26/21 22:00 Temperature 97.4 F L 98.6 F Pulse Rate 59 L 82 Respiratory Rate 16 16 Blood Pressure 113/65 126/68 Pulse Oximetry 94 98 Oxygen Delivery Room Air 10/27/21 06:00 10/27/21 08:05 Temperature 98.2 F Pulse Rate 61 Respiratory Rate 18 Blood Pressure 118/70 Pulse Oximetry 96 Oxygen Delivery Room Air Intake/Output Intake/Output: Intake & Output 10/24/21 10/25/21 10/26/21 10/27/21 23:59 23:59 23:59 23:59 Intake Total 3823 348 5653 390 Output Total 400 500 700 400 Balance 816 434 640 -10 Meds/Results Medications: Active Medications Generic Name Dose Route Start Last Admin Trade Name Freq PRN Reason Stop Dose Admin Hydrocodone Bitart/Acetaminophen 1 tab 10/21/21 03:36 10/26/21 14:26 Hydrocodone/Acetaminophen (*Crx) 5-325 Mg Tablet PO 1 tab Q4H PRN Administration Pain Rated 4-6 Bisacodyl 10 mg 10/22/21 11:10 10/27/21 08:11 Bisacodyl 10 Mg Suppository RECTAL 10 mg QAM ADDY Administration Calcium Carbonate 500 mg 10/21/21 09:00 10/27/21 08:12 Calcium Carbonate (Oscal) 50
[2021-10-27 14:00] VITALS: BP 85/58; PULSE 88; RESP 20; TEMP 36.2; O2SAT 94
[2021-10-27] MEDS: HYDROcodone/acetaminophen (*CRX) 5-325 MG TABLET 1 TAB PO ×2 (15:32→23:17)
[2021-10-27] MEDS: RIVAROXABAN 20 MG TABLET PO (17:19)
[2021-10-27 20:00] VITALS: PULSE 67; RESP 18; O2SAT 94
[2021-10-27 22:00] VITALS: BP 94/58; PULSE 67; RESP 18; TEMP 36; O2SAT 94
[2021-10-27] MEDS: SENNA/DOCUSATE SODIUM TABLET 1 TAB PO (23:18)
[2021-10-28 05:48] VITALS: BP 108/65; PULSE 65; RESP 18; TEMP 35.8; O2SAT 94
[2021-10-28] MEDS: CARBIDOPA/LEVODOPA 12.5/50 MG TABLET 1 TABLET PO ×4 (06:24→19:42)
[2021-10-28] MEDS: LINACLOTIDE 145 MCG CAPSULE 290 MCG PO (06:24)
[2021-10-28] MEDS: CARBIDOPA/LEVODOPA 25/100 MG TABLET 1 TABLET PO ×4 (06:24→19:43)
[2021-10-28] MEDS: polyethylene glycoL 3350 17 GM POWD.PACK PO (08:02)
[2021-10-28] MEDS: MIDODRINE HCL 2.5 MG TABLET 5 MG PO ×3 (08:02→17:11)
[2021-10-28] MEDS: CHOLECALCIFEROL 1,000 UNITS TABLET 2000 UNITS PO (08:03)
[2021-10-28] MEDS: CALCIUM CARBONATE (OSCAL) 500 MG TABLET PO (08:03)
[2021-10-28] MEDS: ROSUVASTATIN 10 MG TABLET PO (08:03)
[2021-10-28] MEDS: FOLIC ACID 1 MG TABLET PO (08:03)
[2021-10-28] MEDS: BISACODYL 10 MG SUPPOSITORY RECTAL (08:03)
[2021-10-28] MEDS: CYANOCOBALAMIN 1,000 MCG TABLET 1000 MCG PO (08:03)
[2021-10-28] MEDS: MAGNESIUM OXIDE 200 MG TABLET PO (08:03)
--- NOTE | 2021-10-28 10:31 | PCNWS ---
Weekly nutritional screen. Patient is tolerating current regular diet with improving adequate intake. No weight loss reported. No nutritional needs at this time.
--- NOTE | 2021-10-28 11:11 | PCNSR ---
On 10/28/21, the student, Deanna Christiansen, provided care and completed [facility] documentation on this patient. I have reviewed the student's documentation and agree with the findings.
[2021-10-28] MEDS: HYDROcodone/acetaminophen (*CRX) 5-325 MG TABLET 1 TAB PO (11:19)
--- NOTE | 2021-10-28 11:22 | PM.IMPN ---
Progress Note: A&P Assessment and Plan (1) AC joint derangement: Code(s): M24.9 - Joint derangement, unspecified Status: Acute Assessment and Plan: Continue shoulder immobilizer. Non-weight bearing. Orthopedic surgery consulted and appreciate recommendations. Pain control with [place] and Flexeril. Stable. (2) Impaired mobility: Code(s): Z74.09 - Other reduced mobility Status: Acute Assessment and Plan: PT and OT have been consulted. Awaiting acute rehab authorization. Appeal placed 10/26/21 and pending. Decision date should be 10/29/2021 (3) BPH (benign prostatic hyperplasia): Code(s): N40.0 - Benign prostatic hyperplasia without lower urinary tract symptoms Status: Acute Assessment and Plan: Continue home finasteride. Stable (4) Fall from ground level: Code(s): W18.30XA - Fall on same level, unspecified, initial encounter Status: Acute Assessment and Plan: Fall precautions initiated. As above. (5) Chronic constipation: Code(s): K59.09 - Other constipation Status: Chronic Assessment and Plan: Continue miralax and bisacodyl suppository daily. He reports BM today. No GI complaints. Stable. Plan CODE STATUS: FULL CODE Disposition: Plan for discharge to acute rehab when insurance authorization obtained Subjective Date/time seen: 10/28/21 11:22 Patient was lying in bed with arm sling on. No significant interventions required to be performed today. Pending placement for [facility], appeal was placed by family members. Apparently insurance has until 10/29/2021 have a decision for acceptance or denial. Pending [facility] placement as a 2nd option. Review of Systems Review of Systems: All systems reviewed & are unremarkable except as noted in HPI and below Exam Narrative: General: No acute distress.?Sitting up in the chair. Mental Status/Psych: Awake, alert and oriented to person and place with clear speech but slow to respond to questions. Flat affect. Skin: Skin fair, warm, dry and intact without rashes or lesions. HEENT: Normocephalic. Conjunctivae are clear. Pupils equal and round. Oral mucosa pink and moist. Neck: No JVD. Cardiac: S1 and S2 regular rate and rhythm. No murmurs, gallops, or rubs auscultated. Respiratory: Respirations even and unlabored. Lung sounds are clear to auscultation in all lobes bilaterally. No retractions. Abdomen: soft, round and non-tender to palpation.? Bowel sounds present in all 4 quadrants. Extremities:? Right shoulder immobilizer intact +CMS, grossly normal ROM all other extremities. No edema. Radial and dorsalis pedis pulses +2 bilaterally. Neurological: No focal deficits. Objective Data Vital Signs Vital Signs: Vital Signs - 24 hr 10/27/21 14:00 10/27/21 22:00 10/27/21 20:00 Temperature 97.2 F L 96.8 F L Pulse Rate 88 67 67 Respiratory Rate 20 18 18 Blood Pressure 85/58 L 94/58 L Pulse Oximetry 94 94 94 Oxygen Delivery [place] 10/28/21 05:48 10/28/21 08:00 Temperature 96.5 F L Pulse Rate 65 Respiratory Rate 18 Blood Pressure 108/65 Pulse Oximetry 94 Oxygen Delivery Room Air Intake/Output Intake/Output: Intake & Output 10/25/21 10/26/21 10/27/21 10/28/21 23:59 23:59 23:59 23:59 Intake Total 934 1340 830 170 Output Total 500 700 825 Balance 434 640 5 170 Meds/Results Medications: Active Medications Generic Name Dose Route Start Last Admin Trade Name Freq PRN Reason Stop Dose Admin Hydrocodone Bitart/Acetaminophen 1 tab 10/21/21 03:36 10/27/21 23:17 Hydrocodone/Acetaminophen (*Crx) 5-325 Mg Tablet PO 1 tab Q4H PRN Administration Pain Rated 4-6 Bisacodyl 10 mg 10/22/21 11:10 10/28/21 08:03 Bisacodyl 10 Mg Suppository RECTAL 10 mg QAM ADDY Administration Calcium Carbonate 500 mg 10/21/21 09:00 10/28/21 08:03 Calcium Carbonate (Oscal) 500 Mg Tablet PO
[2021-10-28 14:00] VITALS: BP 100/61; PULSE 65; RESP 16; TEMP 36.3; O2SAT 95
[2021-10-28 14:04] VITALS: O2SAT 94
[2021-10-28] MEDS: RIVAROXABAN 20 MG TABLET PO (17:11)
[2021-10-28 21:05] VITALS: PULSE 72; O2SAT 93
[2021-10-28 21:43] VITALS: BP 105/57; PULSE 66; RESP 18; TEMP 36.9; O2SAT 95
[2021-10-28] MEDS: CARBIDOPA/LEVODOPA 25/100 MG TABLET 2 TABLET PO (23:14)
[2021-10-28] MEDS: SENNA/DOCUSATE SODIUM TABLET 1 TAB PO (23:15)
[2021-10-29 06:00] VITALS: BP 106/66; PULSE 57; RESP 17; TEMP 36.8; O2SAT 95
[2021-10-29] MEDS: CARBIDOPA/LEVODOPA 12.5/50 MG TABLET 1 TABLET PO ×4 (06:13→21:22)
[2021-10-29] MEDS: LINACLOTIDE 145 MCG CAPSULE 290 MCG PO (06:13)
[2021-10-29] MEDS: CARBIDOPA/LEVODOPA 25/100 MG TABLET 1 TABLET PO ×4 (06:13→21:23)
[2021-10-29] MEDS: MAGNESIUM OXIDE 200 MG TABLET PO (09:16)
[2021-10-29] MEDS: polyethylene glycoL 3350 17 GM POWD.PACK PO (09:16)
[2021-10-29] MEDS: BISACODYL 10 MG SUPPOSITORY RECTAL (09:16)
[2021-10-29] MEDS: MIDODRINE HCL 2.5 MG TABLET 5 MG PO ×3 (09:17→16:07)
[2021-10-29] MEDS: ROSUVASTATIN 10 MG TABLET PO (09:17)
[2021-10-29] MEDS: FOLIC ACID 1 MG TABLET PO (09:17)
[2021-10-29] MEDS: CALCIUM CARBONATE (OSCAL) 500 MG TABLET PO (09:17)
[2021-10-29] MEDS: CHOLECALCIFEROL 1,000 UNITS TABLET 2000 UNITS PO (09:17)
[2021-10-29] MEDS: CYANOCOBALAMIN 1,000 MCG TABLET 1000 MCG PO (09:17)
--- NOTE | 2021-10-29 10:26 | PM.IMPN ---
Progress Note: A&P Assessment and Plan (1) AC joint derangement: Code(s): M24.9 - Joint derangement, unspecified Status: Acute Assessment and Plan: Continue shoulder immobilizer. Non-weight bearing. Orthopedic surgery consulted and appreciate recommendations. Pain control with [place] and Flexeril. Stable. (2) Impaired mobility: Code(s): Z74.09 - Other reduced mobility Status: Acute Assessment and Plan: PT and OT have been consulted. Awaiting acute rehab authorization. Appeal placed 10/26/21 and pending. Decision date should be 10/29/2021 (3) BPH (benign prostatic hyperplasia): Code(s): N40.0 - Benign prostatic hyperplasia without lower urinary tract symptoms Status: Acute Assessment and Plan: Continue home finasteride. Stable (4) Fall from ground level: Code(s): W18.30XA - Fall on same level, unspecified, initial encounter Status: Acute Assessment and Plan: Fall precautions initiated. As above. (5) Chronic constipation: Code(s): K59.09 - Other constipation Status: Chronic Assessment and Plan: Continue miralax and bisacodyl suppository daily. He reports BM today. No GI complaints. Stable. Plan CODE STATUS: FULL CODE Disposition: Plan for discharge to acute rehab when insurance authorization obtained-currently not obtained at this point. Patient has received 4 denies. Subjective Date/time seen: 10/29/21 10:26 Interval history: Patient is alert and oriented x4. He is continuing to work with physical therapy and occupational therapy. Apparently after reviewing the chart the patient has been denied the appeal for rehab. Attempt to discuss this and I will on 10/29/2021 with case management. Apparently the family continues to refuse detention placement. Another denial was placed and at the Federal level according to Case Management today. Patient will stay until the Federal level denial or acceptance. Review of Systems Review of Systems: All systems reviewed & are unremarkable except as noted in HPI and below Exam Narrative: General: No acute distress.?Sitting up in the chair. Mental Status/Psych: Awake, alert and oriented to person and place with clear speech but slow to respond to questions. Flat affect. Skin: Skin fair, warm, dry and intact without rashes or lesions. HEENT: Normocephalic. Conjunctivae are clear. Pupils equal and round. Oral mucosa pink and moist. Neck: No JVD. Cardiac: S1 and S2 regular rate and rhythm. No murmurs, gallops, or rubs auscultated. Respiratory: Respirations even and unlabored. Lung sounds are clear to auscultation in all lobes bilaterally. No retractions. Abdomen: soft, round and non-tender to palpation.? Bowel sounds present in all 4 quadrants. Extremities:? Right shoulder immobilizer intact +CMS, grossly normal ROM all other extremities. No edema. Radial and dorsalis pedis pulses +2 bilaterally. Neurological: No focal deficits. Objective Data Vital Signs Vital Signs: Vital Signs - 24 hr 10/28/21 14:00 10/28/21 14:04 10/28/21 21:43 Temperature 97.4 F L 98.4 F Pulse Rate 65 66 Respiratory Rate 16 18 Blood Pressure 100/61 105/57 L Pulse Oximetry 95 94 95 Oxygen Delivery Room Air 10/28/21 21:05 10/28/21 20:00 10/29/21 06:00 Temperature 98.3 F Pulse Rate 72 57 L Respiratory Rate 17 Blood Pressure 106/66 Pulse Oximetry 93 95 Oxygen Delivery Room Air Room Air Intake/Output Intake/Output: Intake & Output 10/26/21 10/27/21 10/28/21 10/29/21 23:59 23:59 23:59 23:59 Intake Total 2057 062 9031 530 Output Total 700 825 150 500 Balance 640 5 982 30 Meds/Results Medications: Active Medications Generic Name Dose Route Start Last Admin Trade Name Freq PRN Reason Stop Dose Admin Hydrocodone Bitart/Acetaminophen 1 tab 10/21/21 03:36 10/28/21 11:19 Hydrocodone/Acetaminophen (*Crx) 5-325
[2021-10-29 13:51] VITALS: BP 117/67; PULSE 88; RESP 18; TEMP 36.8; O2SAT 96
[2021-10-29] MEDS: RIVAROXABAN 20 MG TABLET PO (16:07)
[2021-10-29] MEDS: HYDROcodone/acetaminophen (*CRX) 5-325 MG TABLET 1 TAB PO ×2 (18:12→22:06)
[2021-10-29] MEDS: SENNA/DOCUSATE SODIUM TABLET 1 TAB PO (21:22)
[2021-10-29] MEDS: CARBIDOPA/LEVODOPA 25/100 MG TABLET 2 TABLET PO (21:23)
[2021-10-29 21:27] VITALS: BP 101/54; PULSE 70; RESP 17; TEMP 36.8; O2SAT 94
[2021-10-29] MEDS: CYCLOBENZAPRINE HCL 10 MG TABLET PO (22:10)
[2021-10-30 05:36] VITALS: BP 100/59; PULSE 58; RESP 18; TEMP 36.8; O2SAT 94
[2021-10-30] MEDS: LINACLOTIDE 145 MCG CAPSULE 290 MCG PO (06:32)
[2021-10-30] MEDS: CARBIDOPA/LEVODOPA 12.5/50 MG TABLET 1 TABLET PO (06:32)
[2021-10-30] MEDS: CARBIDOPA/LEVODOPA 25/100 MG TABLET 1 TABLET PO (06:34)
--- NOTE | 2021-10-30 07:57 | PM.DS ---
DS: Admitting Diagnosis Discharge Date 10/30/2021 Admitting Diagnosis AC joint derangement Impaired mobility BPH Physical debility -fall from the ground DS: Discharge Diagnosis Discharge Diagnosis (1) AC joint derangement: Code(s): M24.9 - Joint derangement, unspecified Status: Acute Assessment and Plan: Continue shoulder immobilizer. Non-weight bearing. Orthopedic surgery consulted and appreciate recommendations. Pain control with [place] and Flexeril. Stable. (2) Impaired mobility: Code(s): Z74.09 - Other reduced mobility Status: Acute Assessment and Plan: PT and OT have been consulted. Awaiting acute rehab authorization. Appeal placed 10/26/21 and pending. Decision date should be 10/29/2021 (3) BPH (benign prostatic hyperplasia): Code(s): N40.0 - Benign prostatic hyperplasia without lower urinary tract symptoms Status: Acute Assessment and Plan: Continue home finasteride. Stable (4) Fall from ground level: Code(s): W18.30XA - Fall on same level, unspecified, initial encounter Status: Acute Assessment and Plan: Fall precautions initiated. As above. (5) Chronic constipation: Code(s): K59.09 - Other constipation Status: Chronic Assessment and Plan: Continue miralax and bisacodyl suppository daily. He reports BM today. No GI complaints. Stable. Plan CODE STATUS: FULL CODE Disposition: Plan for discharge to acute rehab when insurance authorization obtained-currently not obtained at this point. Patient has received 4 denies. DS: Summary Hospital Course Reason for hospitalization: AC joint derangement Hospital Course: Patient is a 71-year-old male with a past medical history of Parkinson's disease, osteoporosis, orthostatic hypotension and BPH. He presented to [facility] via EMS after falling while shaving. The patient reportedly was shaving was not holding onto the sink or his walker when he lost his balance and fell landing on his right shoulder. He immediately had severe pain to his right shoulder. The pain became worse with movement. Patient endorsed muscle spasms when moving or when not moving. He rated the pain at a 6/10 in the emergency department and 10 at 10 in with increased muscle spasms. His pulses were intact in the extremities as well as sensation to his fingers. He denied any chest pain, shortness of breath, nausea, vomiting upset stomach or diarrhea. Patient was recently started on finasteride for his BPH. Patient reported that he is dependent upon a walker at home and ambulates about a quarter of a mi a day. His significant other was able to report he has a deep brain stimulator due to his Parkinson's and this was placed at [place]. He denies any headaches or visual changes. Patient also denies any lightheadedness or syncopal episodes. While in the emergency department labs and imaging were obtained. Labs are significant for WBC of 11.4, hemoglobin 13.6, hematocrit 40.7, platelet 167, sodium 137, potassium 4.1, BUN 33, creatinine 1 and normal LFTs with negative COVID swab. A shoulder x-ray demonstrated probable commuted fracture of the scapular body and therefore orthopedic was consulted from the emergency department. Hospitalist team was consulted for observation status . During the patient's hospitalization orthopedic evaluated the patient suggested the radiographs of the right shoulder revealed the AC joint separation possible commuted scapular fracture and that the pain resolution over AC joint will resolve with time. Patient was created and nonweightbearing to the right upper extremity and to have conservative treatment and wear a arm sling. Patient is also to follow up as an outpatient with Orthopedic office. Patient was stable to discharge on 10/26/2021 pending authorization for acute rehab from insurance companies. The patient was
[2021-10-30 08:00] VITALS: PULSE 58; RESP 18; O2SAT 94
[2021-10-30] MEDS: ROSUVASTATIN 10 MG TABLET PO (09:26)
[2021-10-30] MEDS: MIDODRINE HCL 2.5 MG TABLET 5 MG PO (09:26)
[2021-10-30] MEDS: polyethylene glycoL 3350 17 GM POWD.PACK PO (09:26)
[2021-10-30] MEDS: CYANOCOBALAMIN 1,000 MCG TABLET 1000 MCG PO (09:27)
[2021-10-30] MEDS: FOLIC ACID 1 MG TABLET PO (09:27)
[2021-10-30] MEDS: CALCIUM CARBONATE (OSCAL) 500 MG TABLET PO (09:27)
[2021-10-30] MEDS: CHOLECALCIFEROL 1,000 UNITS TABLET 2000 UNITS PO (09:27)
[2021-10-30] MEDS: BISACODYL 10 MG SUPPOSITORY RECTAL (09:28)
[2021-10-30] MEDS: MAGNESIUM OXIDE 200 MG TABLET PO (09:28)
[2021-10-30 10:48] LABS: EDCOVIDSCREEN Negative (Negative)
== END 2021-10-30 11:40 ==
LOC: ANHED 23:41 → ANH3MEDSUR 10-21 05:30
PROVIDERS: Nurse Practitioner Family; Admitting Provider Internal Medicine; Emergency Provider Emergency Medicine; PCP Internal Medicine; Visit Provider Nurse Practitioner Family
DX: S43.004A Unspecified dislocation of right shoulder joint, initial encounter (principal); W18.30XA Fall on same level, unspecified, initial encounter; Y93.E8 Activity, other personal hygiene; Z74.09 Other reduced mobility; N40.0 Benign prostatic hyperplasia without lower urinary tract symptoms; K59.01 Slow transit constipation; G20 Parkinson's disease; Z86.718 Personal history of other venous thrombosis and embolism; K21.9 Gastro-esophageal reflux disease without esophagitis; D50.9 Iron deficiency anemia, unspecified; I95.1 Orthostatic hypotension; M81.0 Age-related osteoporosis without current pathological fracture; E53.8 Deficiency of other specified B group vitamins; E55.9 Vitamin D deficiency, unspecified; Z20.822 Contact with and (suspected) exposure to COVID-19; R33.9 Retention of urine, unspecified; Z79.01 Long term (current) use of anticoagulants; Z79.899 Other long term (current) drug therapy
CPT/HCPCS: 36415; 73030; 80048; 80053; 85025; 85027; 87426; 97110; 97116; 97161; 97165; 97530; 97535; 99285; A9270; C9803; G0378; J1170; J2270; U0003; U0005

== ENCOUNTER 2022-08-12 00:42 | Day surgery (SDC) | payer MEDICARE, SELFPAY ==
[2022-08-04 13:20] VITALS: BMI 27.3
--- NOTE | 2022-08-04 13:39 | PC.NURSE ---
Report to the Outpatient Waiting Room, entrance under the green pavilion located off [facility], at time __0600 on date __08/12/22 . Planned Procedure Time: ____729____. Time changes happen often and if your time is changed the preop area will call you the afternoon before. - You and your visitor will be asked to self-screen and do not enter if you have any COVID symptoms. - A mask is optional within the hospital at this time. Patients may have clear liquids (water, carbonated beverages, clear teas, apple juice) until 3 hours prior to surgery (0430 AM) with a maximum of 20 ounces. - No food from midnight until time of surgery - Infants may have breast milk until 4 hours before surgery, formula 6 hours prior to surgery. - Children will be allowed to drink immediately following surgery. If applicable, please bring a bottle or sippy cup to assist with drinking. Juice, water, soda, and popsicles are readily available. For infants on formula, please bring formula the day of surgery. Pacifiers are allowed. Take the following medications with a SIP of water the morning of surgery: _AMANTADINE, CARBIDOPA-LEVODOPA, ENTACAPONE, MIDODRINE_ DO NOT STOP ANY OF YOUR OTHER PRESCRIPTION MEDICATIONS PRIOR TO SURGERY ?EXCEPT THE FOLLOWING Medications to discontinue per physician NONE Date to take last dose Please no make-up, nail kiswahili, hairspray, perfume, deodorant, or body powder the day of surgery. No jewelry (including any body piercings) or valuables the day of surgery, leave them at home. Please take a shower or bath the night before, or the morning of, surgery with an antibacterial soap. Wear comfortable, loose fitting clothing. Children are encouraged to wear pajamas. - Jewelry must be removed prior to entering the operating room. Rings and piercings that are not removed may be cut off. - The hospital will not accept responsibility for valuables. - Please leave all valuables, including medications, at home the day of surgery. If you are going home after surgery, a licensed oil truck driver must drive you home. - NO public transportation without another adult if you receive anesthesia. - We recommend that an adult stay with you for 24 hours following discharge. - We also recommend that you do not drive, make important decision, drink alcoholic beverages, or take any drugs that were not prescribed by your health care provider for at least 24 hours after your discharge time. For Pediatric surgeries, we recommend two adults accompany the child home. Follow any additional instructions given to you from your surgeon. If you or anyone in your household have experienced Covid symptoms in the past week, please notify your surgeon or the nurse liaison at the phone number below for possible testing. Telephone instructions given to _PATIENT & SPOUSE_and asked if any additional questions and then verbalized understanding. Patient advised to call surgeon office or pre surgery nurse liaison [phone] if any additional questions.
[2022-08-12 06:13] VITALS: BP 142/73; PULSE 60; RESP 18; O2SAT 100
--- NOTE | 2022-08-12 06:48 | WPDANESEPPF ---
Anes - Initial Pre Proc Eval Procedure: Operation Date: 08/12/22 07:30 Proposed Procedures p Centralization of Right Third Extensor Tendon - Manish Edwards MD Date/Time: 08/12/22 06:48 Surgeon: Manish Edwards MD Pre Op Diagnosis: Subluxation of Rt 3rd Extensor Tendon Patient Data Age: 72 Gender: M Height: 1.75 m Weight: 84.09 kg Allergies Allergy/AdvReac Type Severity Reaction Status Date / Time No Known Allergies Allergy Verified 08/04/22 13:07 Home Medications Medication Instructions Recorded Confirmed Type Fleet Glycerin (Adult) 1 unit EVERY OTHER DAY 06/14/19 08/04/22 History alendronate 70 mg tablet 70 mg PO WEEKLY 6 months #26 tabs 03/24/20 08/04/22 Rx calcium carbonate 500 mg calcium 500 mg PO DAILY 01/30/21 08/04/22 History (1,250 mg) tablet magnesium 250 mg tablet 250 mg PO DAILY 01/30/21 08/04/22 History carbidopa 25 mg-levodopa 100 mg 1.5 tablet PO QID 06/18/21 08/04/22 History tablet entacapone 200 mg tablet 100 mg PO .5XD 06/18/21 08/04/22 History polyethylene glycol 3350 17 17 g PO DAILY PRN Constipation 10/22/21 08/04/22 History gram/dose oral powder (Miralax) midodrine 10 mg tablet 10 mg PO TID 12/02/21 08/04/22 History rivaroxaban 20 mg tablet (Xarelto) See Rx Instructions .Route 02/18/22 08/04/22 Rx .COMPLEX #90 tabs rosuvastatin 10 mg tablet See Rx Instructions .Route 02/18/22 08/04/22 Rx .COMPLEX #90 tabs finasteride 5 mg tablet See Rx Instructions .Route 05/20/22 08/04/22 Rx .COMPLEX #90 tabs folic acid 1 mg tablet See Rx Instructions .Route 06/10/22 08/04/22 Rx .COMPLEX #90 tabs tamsulosin 0.4 mg capsule 0.4 mg PO QHS #90 caps 07/13/22 08/04/22 Rx amantadine HCl 100 mg capsule 100 mg QAM 08/04/22 08/04/22 History carbidopa ER 50 mg-levodopa 200 mg 1 tablet PO HS 08/04/22 08/04/22 History tablet,extended release linaclotide 290 mcg capsule 290 mcg DAILY 08/04/22 08/04/22 History (Linzess) Patient hx anesthesia problems: none Family hx anesthesia problems: none Results Review: All pre-operative results and documents have been reviewed as part of the pre-operative evaluation. [facility] Past Medical History Medical History Autonomic dysfunction BMI 28.0-28.9,adult BPH (benign prostatic hyperplasia) Chronic deep vein thrombosis Constipation by delayed colonic transit Deep vein thrombosis of left lower limb X2 Dupuytrens contracture Eczema Encounter for routine adult health examination without abnormal findings GERD (gastroesophageal reflux disease) History of pelvic fracture Hyperlipidemia Iron deficiency anemia Kidney stones Orthostatic hypotension Osteoporosis Osteoporosis Parkinsons disease Scapular fracture Seizures Trigger finger of right hand Ventral hernia Vitamin B12 deficiency Vitamin D deficiency Surgical History Surgical History History of appendectomy History of excision of mass exc of thrombosed hemorroid on 12/29/21 Hx of repair of right rotator cuff Hx of tonsillectomy S/P deep brain stimulator placement (~2011) Family History Family History Mother Family history of Alzheimer's disease Sibling Family history of malignant neoplasm of breast in first degree relative two sisters with breast cancer Father Family history of hepatitis Social History Social History Social History: Patient lives at home with his , Heydi, who is his surrogate MDM. His PCP is Dr. Rowe. He wishes to be listed as a Full Code. However he does not think he would want a G-tube. Smoking status: Never smoker Second hand tobacco smoke exposure: No Alcohol intake: current Alcohol use details: EXTREMILY RARE Substance use: never Substance use type: does not use Lack of Transportation:
[2022-08-12] MEDS: LACTATED RINGERS 1,000 ML 30 ML IV CONT (07:03)
--- NOTE | 2022-08-12 07:10 | WPDHPUPDATE1 ---
History and Physical Update Update Date/Time: 08/12/22 07:10 History and Physical has been reviewed, including an updated exam of the patient. There are NO changes in the patient's condition. Risks, benefits, and alternatives have been discussed and questions answered. Patient agrees to proceed with procedure.
[2022-08-12] MEDS: LIDO 1%/EPINEPHRINE 1:100,000 20 ML VIAL 4 ML INFILTRATE (07:50)
[2022-08-12 08:39] VITALS: BP 122/68; PULSE 67; RESP 12; O2SAT 97
[2022-08-12 09:00] VITALS: BP 119/60; PULSE 66; RESP 14; O2SAT 93
[2022-08-12 09:20] VITALS: BP 137/70; PULSE 67; RESP 14; O2SAT 95
--- NOTE | 2022-08-12 09:22 | W.PM.PROC2 ---
Procedure Note - Detailed Date of Procedure 08/12/22 Pre-op Diagnosis Subluxation of Rt 3rd Extensor Tendon Post-op Diagnosis Same Procedure Performed Centralization of the right 3rd extensor tendon with tendon transfer Surgeon Manish Edwards MD Client Development Manager Julisa Marie Anesthesia General Indications Ulnar subluxation of the left extensor tendon due to attritional rupture of the sagittal band Findings Same Description of Procedure The patient's left middle finger was marked in the holding area with his consent. He demonstrated severe subluxation and inability to extend the middle finger actively in the holding area. He was taken to the operating room where he was placed supine on the operating table. Left upper extremity was placed on a hand board. He was given general anesthesia. The left upper extremity was prepped and draped in usual fashion. The site was marked for an incision running longitudinally centered over the metacarpophalangeal joint. This area was infiltrated with 1% lidocaine with epinephrine.. The extremity was exsanguinated and the tourniquet inflated to 250 mmHg.. The incision was made as marked and the skin flaps elevated to either side. The Ulnarly subluxated extensor tendon was identified and mobilized to the midline. The ulnar extensor gambino was incised to reduce tension from that side. A slip of the extensor tendon was incised and elevated based distally at the metacarpophalangeal joint. The right angle hemostat used to identify the intermetacarpal ligament and the tendon of the dorsal interosseous on the radial aspect. The slip of tendon mobilized was passed under the extensor tendon across the metacarpophalangeal joint and under the radial intermetacarpal ligament and extrinsic tendon. The piece was then passed through a small fenestration on the ulnar side of the extensor gambino. 4-0 Prolene sutures were placed to limit further separation of the slip from the central tendon and then additional sutures were placed to stabilize the end of the tendon were it lapped over onto itself. The extensor tendon was now in its anatomic position. The skin was closed with with running 5 0 nylon. The tourniquet was released. A small bandage with a long volar Alumafoam splint was applied to the palm side of the middle finger. The patient was transferred from the operating in stable condition for he had received IV Ancef. He is being discharged home with prescription for hydrocodone 5/7.5 5. Estimated Blood Loss 1 Tourniquet Time 35 Drains No Packing No Pathology None sent Complications No immediate complications Condition Stable Disposition Same day
== END 2022-08-12 09:35 | disposition home or self-care (01) ==
PROVIDERS: PCP Internal Medicine; Visit Provider Plastic Surgery
PROC: (CPT 26437; principal; 2022-08-12 07:30)
DX: M66.241 Spontaneous rupture of extensor tendons, right hand (principal); G20 Parkinson's disease; E78.5 Hyperlipidemia, unspecified; K21.9 Gastro-esophageal reflux disease without esophagitis; M81.0 Age-related osteoporosis without current pathological fracture; G40.909 Epilepsy, unspecified, not intractable, without status epilepticus; K59.01 Slow transit constipation; I82.502 Chronic embolism and thrombosis of unspecified deep veins of left lower extremity; Z79.01 Long term (current) use of anticoagulants
CPT/HCPCS: 26437; A9270; J1100; J1644; J2405; J2704; J7030; J7120

== ENCOUNTER 2022-09-09 12:30 | Outpatient (RCR) | payer MEDICARE, SELFPAY ==
--- NOTE | 2022-08-31 14:18 | BUOTOPEVAL ---
Assessment and note entered by Librado Guadalupe, DEE/Tulio, CHT Evaluation Information Assessment Status Evaluation Diagnosis Parkinson's; s/p centralization of the right 3rd extensor tendon Subjective Information 08/12/22: Patient is a little over two weeks s/p centralization of the right 3rd extensor tendon. He had ulnar subluxation of the tendon secondary to an attritional rupture of the sagittal band. Post surgery he was in a volar Alumafoam splint to immobilize the MCPs in extension, this crossed the wrist. He removed this splint due to being unable to use his walker with that splint on. When he returned to the surgeon's office on 08/27 he did not have any sort of splint on and the fingers were in a flexed position. The surgeon placed him in a relative motion orthosis. He presents today wearing this. When the splint is removed the middle finger falls into flexion and he is unable to straighten it. When held in full extension he is able to maintain this. He is open to wearing some sort of immobilizer as long as he is able to use his hand due to his mobility deficits with Parkinson's. Reported Pain Level Pain Score 0: Self Report Assessment OT Clinical Summary Patient referred to outpatient hand therapy s/p surgical centralization of the right 3rd extensor tendon. He was unable to tolerate post op splint and went without anything on the hand for a period of time. There is obvious extensor lag at the MCP joint and it was deemed necessary to obtain as much MCP extension in the splint for optimal healing. A hand based splint was fabricated to support P1 of digits II-III to position the MCPs in as much extension as we are able to achieve. IPs are free. In the splint the MCPs are in about 20 degree of flexion to allow for finger flexion around his walker handle. Plan to have him follow up for continued therapy for splinting modifications/adjustments and progression of ROM as indicated to facilitate optimal functional use of the right hand. Plan of Care Interventions Therapeutic Exercise,Manual Therapy,Therapeutic Activities,Hot Pack/Cold Pack,Check Out for Orthotic/Pr OT Services Indicated Yes Treatment Frequency and 1x/week for 3 weeks Duration These treatments will address the objective and functional deficits
--- NOTE | 2022-09-28 13:51 | OTOPDC ---
Assessment and note entered by Librado Guadalupe, OTR/L, CHT Discharge Summary OT Clinical Summary Discharge summary for Herbert Jansen (1950). He was referred to outpatient OT s/p centralization of the right 3rd extensor tendon, which unfortunately was deemed a failed repair at our last session due to severe extension lag at the MCP joint. A relative motion orthosis was fabricated to keep this finger supported. No further skilled OT indicated at this time.
== END 2022-09-28 14:32 | disposition home or self-care (01) ==
LOC: ANHOT 12:30
PROVIDERS: PCP Internal Medicine; Visit Provider Plastic Surgery
DX: Z48.89 Encounter for other specified surgical aftercare (principal); G20 Parkinson's disease
CPT/HCPCS: 97110; 97166; L3913; L3933

== ENCOUNTER 2022-11-26 13:45 | Inpatient (IN) | payer MEDICARE, SELFPAY ==
[2022-11-26] VITALS (20 sets, daily range): BP systolic 106–140; BP diastolic 48–80; PULSE 66–83; RESP 14–20; TEMP 36.2–36.6; O2SAT 91–97; BMI 27.2; BMI 26.4
--- NOTE | ~2022-11-26 | XR_ITS ---
EXAM: XR shoulder RT min 2V DATE: 11/26/2022 14:37 HISTORY: fall, PAIN TO BACK OF SHOULDER . COMPARISON: 10/21/2021. FINDINGS: Exam limited by nonstandard positioning. Right-sided stimulator pack with leads that termin ate out of the [id number]. Decreased mineralization. Old healed scapular fracture. No new fracture or dislocation. No lytic or blastic lesion. Mild AC joint and glenohumeral joint osteoarthritis. No erosion or periosteal change. Soft tissues within normal limits. IMPRESSION: No acute osseous finding in the right shoulder. Reviewed, dictated and finalized at location K.
--- NOTE | ~2022-11-26 | CT_ITS ---
EXAMINATION: CT cervical spine wo con DATE: 11/26/2022 14:25 INDICATION: Head injury. TECHNIQUE: Computed tomography (CT) of the cervical spine was performed without intravenous contrast. Automated exposure control and iterative reconstruction technique were employed. The dose-length pro duct was 449.35 mGy-cm. COMPARISON: CT cervical spine 06/13/2019 FINDINGS: There is a fracture of right clavicle. There is 7 degrees levocurvature of cervicothoracic spine. Vertebral body heights are normal. There is mildly decreased disc height at C5-C6 and severely decreased disc height at C6-C7. The following disc levels are specifically discussed: C2-C3: There is no uncovertebral joint osteoarthritis. There is mild bilateral facet joint osteoarthr itis. There is no neural foraminal stenosis. There is no central canal stenosis. C3-C4: There is mild right and moderate left uncovertebral joint osteoarthritis. There is mild right and severe left facet joint osteoarthritis. There is mild left neural foraminal stenosis. There is no central canal stenosis. C4-C5: There is mild left uncovertebral joint osteoarthritis. There is moderate left facet joint oste oarthritis. There is mild left neural foraminal stenosis. There is no central canal stenosis. C5-C6: There is mild right and moderate left uncovertebral joint osteoarthritis. There is mild bilate ral facet joint osteoarthritis. There is mild left neural foraminal stenosis. There is mild central c anal stenosis. C6-C7: There is severe bilateral uncovertebral joint osteoarthritis. There is mild right facet joint osteoarthritis. There is mild right and moderate left neural foraminal stenosis. There is mild centra l canal stenosis. C7-T1: There is no uncovertebral joint osteoarthritis. There is severe right and mild left facet join t osteoarthritis. There is mild right neural foraminal stenosis. There is no central canal stenosis. IMPRESSION: 1. Right clavicle fracture. 2. Severe spondylosis at C6-C7 and mild spondylosis at other levels. Reviewed, dictated and finalized at location A.
--- NOTE | ~2022-11-26 | XR_ITS ---
EXAMINATION: XR chest 1V portable Exam Date/Time: 11/26/2022 15:25 CDT HISTORY: Near syncope Comparison: 01/14/2011 x-ray shoulder, same date and 10/21/2021; x-ray chest and ribs 01/14/2011. RESULT: Lines, tubes, and devices: Bilateral similar packs with leads that terminate out of the [id number] w. Lungs and pleura: Senescent changes. Otherwise clear. Cardiomediastinal silhouette: Stable, given interval differences in technique. Possible small hiatal hernia. Other: No acute upper abdominal finding. Oblique fracture of the right clavicle at the junction of t he middle and distal thirds, with one half shaft width inferior displacement, 41 degrees inferior ang ulation, and 3 cm overlap. IMPRESSION: No acute cardiopulmonary process. Oblique, displaced, angulated and overlapping right clavicular fracture. Reviewed, dictated and finalized at location K.
--- NOTE | ~2022-11-26 | XR_ITS ---
EXAM: XR abdomen/kub 1V DATE: 11/30/2022 21:22 HISTORY: constipation . COMPARISON: 12/01/2012. FINDINGS: Bibasilar scar/atelectasis. Normal bowel gas pattern. No organomegaly. No abnormal abdomin al calcification. Lumbar degenerative disc disease. Bilateral hip osteoarthritis. Benign lesion in th e left iliac wing. IMPRESSION: No radiographic evidence of obstruction or ileus. Reviewed, dictated and finalized at location K.
--- NOTE | ~2022-11-26 | CT_ITS ---
EXAMINATION: CT brain wo con DATE: 11/26/2022 14:21 INDICATION: fall . TECHNIQUE: Computed tomography (CT) of the head was performed without intravenous contrast. The mA wa s adjusted according to patient size. Iterative reconstruction technique was employed. The dose-lengt h product was 681.00 mGy-cm. COMPARISON: 06/13/2019. FINDINGS: No acute intracranial hemorrhage or extra-axial fluid collection. No hydrocephalus, mass, or herniation. No acute ischemic infarct. Unremarkable dural venous sinus attenuation. No acute osseous abnormality. Mild nodular mucosal thickening in the ethmoid air cells. Retention cyst or polyp in the inferior rig ht maxillary sinus. The remaining aerated spaces are clear. Mild atrophy and chronic white matter change. Atherosclerotic intracranial calcification. Bilateral l ens replacements. Deep brain stimulators, in good position. IMPRESSION: No acute intracranial process. Reviewed, dictated and finalized at location K.
--- NOTE | 2022-11-26 15:06 | ECG_ITS ---
Measurements Intervals Anthon Rate: 69 P: 12 MT: 200 QRS: 114 QRSD: 95 T: 17 QT: 406 QTc: 437 Interpretive Statements SINUS RHYTHM INDETERMINATE AXIS BASELINE ARTIFACT GREATLY LIMITS INTERPRETATION ABNORMAL ECG NO PREVIOUS ECG AVAILABLE FOR COMPARISON Electronically Signed On 11-27-2022 12:36:07 CDT by Rayray Robison M.D.
[2022-11-26] MEDS: oxyCODONE/ACETAMINOPHEN (*CRX) 5-325 MG TABLET 1 TABLET PO (15:12)
[2022-11-26 15:31] LABS: Basophils Percent Auto 0.5 % (0.2-1.2); Eosinophils Absolute Auto 0.1 K/mm3 (0-0.3); Eosinophils Percent Auto 1.7 % (0-4.4); Hematocrit 42.3 % (42.0-52.0); Hemoglobin 13.5 g/dL (14.0-18.0); Immature Granulocyte Absolute 0.02 K/mm3 (0.00-0.031); Immature Granulocyte Percent A 0.3 % (0-0.5); Immature Platelet Fraction Pct 12.2 % (0.9-11.2); Lymphocytes Absolute Auto 1.83 K/mm3 (0.9-3.2); Lymphocytes Percent Auto 28.7 % (18.3-44.2); Mean Corpuscular HGB Conc 31.9 g/dl (32-36); Mean Corpuscular Hemoglobin 32.6 pg (26-34); Mean Corpuscular Volume 102.2 fl (80-100); Mean Platelet Volume 13.7 fl (7.4-10.4); Monocytes Absolute Auto 0.5 K/mm3 (0.1-0.6); Monocytes Percent Auto 7.8 % (2.6-8.5); Neutrophils Absolute Auto 3.9 K/mm3 (1.3-6.7); Platelet Count Result 155 k/mm3 (150-375); Red Blood Count 4.14 M/mm3 (4.6-6.20); Red Cell Distribution Width 12.6 % (11.5-14.5); White Blood Count 6.4 K/mm3 (4.5-10.0)
[2022-11-26 15:45] LABS: Appearance Urine Clear (Clear); Bacteria Urine None Seen /hpf; Bilirubin Urine Negative (Negative); Blood Urine Negative (Negative); Color Urine Yellow (Yellow); Glucose Urine UA Negative (Negative); Ketones Urine Trace mg/dL (Negative); Leukocyte Esterase Ur 1+ LEU/UL (Negative); Need Manual Microscopic Reviewed; Nitrate Urine Negative (Negative); Non Pathogenic Casts 0-2; Protein Urine Negative (Negative); RBC Urine 0-2 /hpf (0-2); Specific Grav Ur 1.019 (1.001-1.035); Squamous Epithelial Cell Urine None seen /hpf (Few); WBC Urine 0-5 /hpf; pH Urine 5.5 (5.0-9.0)
[2022-11-26 15:48] LABS: Add Urine Microscopic? YES
--- NOTE | 2022-11-26 16:09 | ED.GENADULT ---
HPI - General Adult General Chief complaint: Extremity Injury, Upper Stated complaint: R shoulder pain Time Seen by Provider: 11/26/22 14:19 History of Present Illness HPI narrative: This is a 72-year-old male, with past history of Parkinson's, autonomic dysfunction with orthostatic hypotension and previous falls, who presents to the emergency department after fall at home. The patient's who is at bedside notes the patient took his midodrine. Then approximately 10 minutes later, he stood and attempted to walk with his walker, felt lightheaded and fell striking his head on the floor. She denies loss of consciousness. The patient complains of pain in the right frontal forehead and at the right shoulder but has no other complaints. Related Data Home Medications Medication Instructions Recorded Confirmed Fleet Glycerin (Adult) 1 unit EVERY OTHER DAY 06/14/19 11/05/22 calcium carbonate 500 mg calcium 500 mg PO DAILY 01/30/21 11/05/22 (1,250 mg) tablet magnesium 250 mg tablet 250 mg PO DAILY 01/30/21 11/05/22 polyethylene glycol 3350 17 17 g PO DAILY PRN Constipation 10/22/21 11/05/22 gram/dose oral powder (Miralax) amantadine HCl 100 mg capsule 100 mg QAM 08/04/22 11/05/22 carbidopa 25 mg-levodopa 100 mg 1.5 tablet PO TID 11/03/22 11/05/22 tablet cholecalciferol (vitamin D3) 50 100 mcg PO DAILY 11/03/22 11/05/22 mcg (2,000 unit) capsule Allergies Allergy/AdvReac Type Severity Reaction Status Date / Time No Known Allergies Allergy Verified 11/26/22 14:00 Review of Systems Review of Systems: CONSTITUTIONAL: Denies fever, chills, or sweats. EYES: Denies visual changes, redness, or discharge. CARDIOVASCULAR: Denies chest pain, palpitations, or edema. RESPIRATORY: Denies cough or dyspnea. GASTROINTESTINAL: Denies abdominal pain, nausea, vomiting, or diarrhea. GENITOURINARY: Denies dysuria or hematuria. SKIN: Denies rash or itching. MUSCULOSKELETAL: Right shoulder pain denies back pain, or myalgia. NEUROLOGIC: Headache denies numbness, dizziness, or weakness. PSYCHIATRIC: Denies anxiety or depression. [facility] Past Medical History Medical History Anemia Autonomic dysfunction BMI 28.0-28.9,adult BPH (benign prostatic hyperplasia) Chronic deep vein thrombosis Colon cancer screening Constipation by delayed colonic transit Deep vein thrombosis of left lower limb X2 Dizziness Dupuytrens contracture Eczema Encounter for routine adult health examination without abnormal findings GERD (gastroesophageal reflux disease) Hearing loss History of pelvic fracture Hyperlipidemia Iron deficiency anemia Kidney stones Multiple falls Orthostatic hypotension Osteoporosis Osteoporosis Parkinsons disease Scapular fracture Seizures Trigger finger of right hand Ventral hernia Vitamin B12 deficiency Vitamin D deficiency Surgical History Surgical History History of appendectomy History of excision of mass exc of thrombosed hemorroid on 12/29/21 Hx of repair of right rotator cuff Hx of tonsillectomy S/P deep brain stimulator placement (~2011) Family History Family History Mother Family history of Alzheimer's disease Sibling Family history of malignant neoplasm of breast in first degree relative two sisters with breast cancer Father Family history of hepatitis Social History Social History Social History: Patient lives at home with his , Heydi, who is his surrogate MDM. His PCP is Dr. Rowe. He wishes to be listed as a Full Code. However he does not think he would want a G-tube. Smoking status: Never smoker Second hand tobacco smoke exposure: No Alcohol intake: current Alcohol use details: EXTREMILY RARE Substance use: never Substance use type: does not use
[2022-11-26 16:19] LABS: Alanine Aminotransferase 14 U/L (6-50); Albumin Level 3.9 g/dL (3.5-5.1); Alkaline Phosphatase 43 U/L (38-126); Anion Gap 6 mmol/L (8-16); Aspartate Amino Transferase 25 U/L (17-59); Bilirubin,Total 0.5 mg/dL (0.2-1.3); Blood Urea Nitrogen 34 mg/dL (9-20); Calcium 8.5 mg/dL (8.4-10.2); Carbon Dioxide 25 mmol/L (22-30); Chloride 108 mmol/L (98-107); Estimated CRCL calculation 54 ml/min; Estimated Glomerular Filt Rate > 60; Glucose 149 mg/dL (65-110); Magnesium 2.2 mg/dL (1.6-2.3); Potassium 3.9 mmol/L (3.4-5.0); Sodium 139 mmol/L (137-145)
[2022-11-26] MEDS: MORPHINE SULFATE (*CRX) 4 MG/ML INJ IV PUSH (17:56)
--- NOTE | 2022-11-26 20:58 | ADMGEN ---
This patient, Herbert Jansen, was admitted to Medical Room 342-01. Patient/family oriented to hospital policies and general routines including ID bracelet, bed and alarms, visiting hours, pain management, procedures, bathroom and other care routines, personal items, smoking policy, room service/diet, and visiting hours. Information on how to activate the Rapid Response Team has been discussed. Patient/Family are encouraged to report perceived risks to care and to ask questions if they do not understand what they are told or what they should do.
--- NOTE | 2022-11-26 23:00 | PM.IMHP ---
H&P: HPI History of Present Illness Date/Time: 11/26/22 23:00 Chief Complaint: Fall, shoulder pain Narrative: 72-year-old male with a past medical history of Parkinson's disease is post bilateral deep brain stimulator, autonomic dysfunction with chronic orthostatic hypotension, BPH and osteoporosis who presented to the ER via EMS after having a fall and shoulder pain. The patient is on chronic midodrine therapy due to orthostatic hypotension. He took his midodrine and approximately 10 minutes later stood up and attempted to walk. He felt lightheaded and fell striking his forehead. The denies the patient having loss of consciousness. But the patient reports that since he has had the fall he does not remember the fall itself. Although he does have obvious head injury with bruising and abrasion to the right frontal forehead. He complains of sharp pain in his right shoulder. His shoulder pain is worse with any movement or palpation over the anterior shoulder. He does have a bruise over the clavicular area. He had an x-ray performed in the ER which demonstrated a displaced and angulated overlapping clavicular fracture. His chest x-ray was otherwise unremarkable. The patient does report feeling short of breath with exertion. He denies orthopnea or lower extremity swelling. He does not have a history of heart failure. However on exam patient seems to have a cardiac gallop. The patient reports chronic urinary frequency and urgency. He denies hematuria or dysuria. He has chronic constipation and has to use a suppository each day as part of his bowel regimen. He denies any headache. He has not had any vision changes. He reports that any time he eats he does get dizzy. He states that they think this happens because his blood pressures are chronically low and he only has so much blood pressure. When he eats his blood rashes to his stomach instead of to his head. Review of Systems Review of Systems: 12 systems were reviewed with pertinent positives and negatives per HPI. Except as documented in the HPI, all other systems were reviewed and are negative. [facility] Past Medical History Medical History (Updated 11/27/22 @ 00:23 by Kianna Miller DO) Anemia Autonomic dysfunction BPH (benign prostatic hyperplasia) Chronic deep vein thrombosis Constipation by delayed colonic transit Deep vein thrombosis of left lower limb X2 Dupuytrens contracture Eczema GERD (gastroesophageal reflux disease) Hearing loss History of pelvic fracture Hyperlipidemia Iron deficiency anemia Kidney stones Multiple falls Orthostatic hypotension Osteoporosis Parkinsons disease Seizures Trigger finger of right hand Ventral hernia Vitamin B12 deficiency Vitamin D deficiency Surgical History Surgical History (Updated 11/27/22 @ 00:23 by Kianna Miller DO) History of appendectomy History of hemorrhoidectomy (12/29/21) Due to thrombosed hemorrhoid Hx of repair of right rotator cuff Hx of tonsillectomy S/P deep brain stimulator placement (~2011) Family History Family History Mother Family history of Alzheimer's disease Sibling Family history of malignant neoplasm of breast in first degree relative two sisters with breast cancer Father Family history of hepatitis Social History Social History Social History: Patient lives at home with his , Heydi, who is his surrogate MDM. His PCP is Dr. Rowe. He wishes to be listed as a Full Code. However he does not think he would want a G-tube. Smoking status: Never smoker Second hand tobacco smoke exposure: No Alcohol intake: never Alcohol use details: EXTREMILY RARE Substance use: never Substance use type: does not use Lack of Transportation: No Lack of Food: Never True Current Housing: I Have Housing Concerned About Future Housing: No Difficulty
--- NOTE | 2022-11-27 | ECHO_ITS ---
Patient Info Name: Herbert Jansen Age: 72 years : 1950 Gender: Male Ht: 69 in Wt: 179 lbs BSA: 2.00 m2 HR: 61 bpm BP: 145 / 70 mmHg Heart Rhythm: Sinus Rhythm Technical Quality: Fair Exam Date: 11/27/2022 7:43 AM Exam Location: [facility] Pulmonary Exam Room: 342 Patient Status: Inpatient Admit Date: 11/26/2022 Staff Ordering Physician: Kianna Miller DO Bridge Inspector: Lita hSepherd RDCS Attending Provider: Baljit Wade MD Referring Physician: Paul STERLING; Exam Type: CA echo doppler color flow Study Info Indications - NEAR SYNCOPE CARDIAC GALLOP Complete two-dimensional, color flow and Doppler transthoracic echocardiogram is performed. Summary 1. Complete two-dimensional, color flow and Doppler transthoracic echocardiogram is performed. 2. Left ventricular chamber dimension is normal. 3. Left ventricular systolic function is normal, estimated at 60-65%. 4. There is mildly increased left ventricular wall thickness. 5. The left ventricular diastolic function is grade I diastolic dysfunction. 6. Left atrial chamber dimension is mildly enlarged. 7. There is mild aortic valve calcification. 8. There is mild to moderate aortic valve regurgitation. 9. There is mild mitral valve regurgitation. 10. There is mild tricuspid valve regurgitation. 11. The aortic root size at the sinus of Valsalva is mildly dilated. Left Ventricle Left ventricular chamber dimension is normal. Left ventricular systolic function is normal, estimated at 60-65%. There is mildly increased left ventricular wall thickness. The left ventricular diastolic function is grade I diastolic dysfunction. Right Ventricle Right ventricular chamber dimension is normal. Right ventricular systolic function is normal. Left Atria Left atrial chamber dimension is mildly enlarged. Right Atria Right atrial chamber dimension is normal. Atrial Septum Intact interatrial septum visualized by color flow imaging. Aortic Valve The aortic valve is probable trileaflet. There is no aortic valve stenosis. There is mild to moderate aortic valve regurgitation. There is mild aortic valve calcification. Pulmonic Valve The pulmonic valve is normal. There is no pulmonic valve stenosis. There is trace pulmonic regurgitation. Mitral Valve The mitral valve has normal leaflets. There is no mitral valve stenosis. There is mild mitral valve regurgitation. Tricuspid Valve The tricuspid valve leaflets are normal. There is no significant tricuspid valve stenosis. There is mild tricuspid valve regurgitation. No pulmonary hypertension, estimated pulmonary arterial systolic pressure is 27 mmHg. Pericardium/Pleural The pericardium appears normal. There is no pericardial effusion. Inferior Vena Cava Normal inferior vena cava with >50% collapse upon inspiration consistent with normal right atrial pressure, 10 mmHg. Aorta The aortic root size at the sinus of Valsalva is mildly dilated. Left Ventricular Outflow Tract Name Value Normal LVOT 2D LVOT Diameter 2.1 cm LVOT Doppler LVOT Peak Gradient 5 mmHg LVOT Mean Gradient 3 mmHg LVOT VTI 24 cm
[2022-11-27] MEDS: HYDROcodone/acetaminophen (*CRX) 10-325 MG TABLET 1 TAB PO ×2 (01:13→06:10)
[2022-11-27 04:19] VITALS: BP 145/70; PULSE 71; RESP 16; TEMP 36.6; O2SAT 97
[2022-11-27] MEDS: LINACLOTIDE 145 MCG CAPSULE 290 MCG PO (06:07)
[2022-11-27 06:22] LABS: Basophils Absolute Auto 0.1 K/mm3 (0.0-0.1); Basophils Percent Auto 0.7 % (0.2-1.2); Eosinophils Absolute Auto 0.2 K/mm3 (0-0.3); Eosinophils Percent Auto 2.1 % (0-4.4); Hematocrit 37.7 % (42.0-52.0); Hemoglobin 12.3 g/dL (14.0-18.0); Immature Granulocyte Absolute 0.01 K/mm3 (0.00-0.031); Immature Granulocyte Percent A 0.1 % (0-0.5); Lymphocytes Absolute Auto 1.49 K/mm3 (0.9-3.2); Lymphocytes Percent Auto 20.6 % (18.3-44.2); Mean Corpuscular HGB Conc 32.6 g/dl (32-36); Mean Corpuscular Hemoglobin 32.6 pg (26-34); Mean Platelet Volume 12.4 fl (7.4-10.4); Monocytes Absolute Auto 0.9 K/mm3 (0.1-0.6); Monocytes Percent Auto 12.3 % (2.6-8.5); Neutrophils Absolute Auto 4.7 K/mm3 (1.3-6.7); Neutrophils Percent Auto 64.2 % (45.5-73.1); Platelet Count Result 141 k/mm3 (150-375); Red Blood Count 3.77 M/mm3 (4.6-6.20); Red Cell Distribution Width 12.6 % (11.5-14.5); White Blood Count 7.3 K/mm3 (4.5-10.0)
[2022-11-27 06:33] LABS: Anion Gap 5 mmol/L (8-16); Blood Urea Nitrogen 34 mg/dL (9-20); Calcium 8.3 mg/dL (8.4-10.2); Carbon Dioxide 26 mmol/L (22-30); Chloride 107 mmol/L (98-107); Estimated CRCL calculation 71 ml/min; Estimated Glomerular Filt Rate > 60; Glucose 94 mg/dL (65-110); Potassium 3.8 mmol/L (3.4-5.0); Sodium 138 mmol/L (137-145)
[2022-11-27 08:20] VITALS: O2SAT 97
[2022-11-27] MEDS: ASPIRIN 81 MG ENTERIC TABLET PO ×2 (08:38→17:22)
[2022-11-27] MEDS: FOLIC ACID 1 MG TABLET PO (08:38)
[2022-11-27] MEDS: ROSUVASTATIN 10 MG TABLET PO (08:38)
[2022-11-27] MEDS: MIDODRINE HCL 10 MG TABLET PO ×3 (08:38→17:22)
[2022-11-27] MEDS: FINASTERIDE 5 MG TABLET PO (08:38)
[2022-11-27] MEDS: BISACODYL 10 MG SUPPOSITORY RECTAL (08:38)
[2022-11-27] MEDS: CARBIDOPA/LEVODOPA 25/100 MG TABLET 1 TABLET PO ×3 (08:40→15:41)
[2022-11-27] MEDS: CARBIDOPA/LEVODOPA 12.5/50 MG TABLET 1 TABLET PO ×3 (08:40→15:41)
--- NOTE | 2022-11-27 09:25 | PM.IMPN ---
Progress Note: A&P Assessment and Plan (1) Closed fracture of right clavicle: Qualifiers: Clavicle location: shaft Encounter type: initial encounter Fracture alignment: displaced Qualified Code(s): S42.021A - Displaced fracture of shaft of right clavicle, initial encounter for closed fracture Code(s): S42.001A - Fracture of unspecified part of right clavicle, initial encounter for closed fracture Status: Acute Assessment and Plan: Orthopedic consult pending PT/OT, fall precautions (2) Autonomic dysfunction: Code(s): G90.9 - Disorder of the autonomic nervous system, unspecified Status: Acute Assessment and Plan: Continue midodrine (3) Contusion of head: Qualifiers: Contusion of head detail: other part of head Encounter type: initial encounter Qualified Code(s): S00.83XA - Contusion of other part of head, initial encounter Code(s): S00.93XA - Contusion of unspecified part of head, initial encounter Status: Acute (4) Parkinsons disease: Code(s): G20 - Parkinson's disease Status: Acute Assessment and Plan: Continue home medications (5) Syncope: Code(s): R55 - Syncope and collapse Status: Acute Assessment and Plan: Likely multifactorial, secondary to dysautonomia with Parkinson's disease and recurrent low blood pressure Check orthostatic blood pressure Check echo Monitor telemetry Continue midodrine Plan DVT prophylaxis with SCDs GI prophylaxis not indicated Code status full code Subjective Date/time seen: 11/27/22 09:25 Interval history: 32-year-old male with history of Parkinson's disease is presenting with a syncopal episode likely secondary to dysautonomia and shoulder pain, positive for right clavicular fracture. No overnight events noted. No chest pain or shortness of breath. No nausea, vomiting or diarrhea. No fevers or chills. C/o pain in shoulder. Review of Systems Review of Systems: 12 point review of systems was assessed and was negative except as noted in the HPI Exam Narrative: General: No acute distress, alert and oriented per baseline, preoccupied with need to stand and use urinal, awaiting assistance HEENT: Atraumatic, normocephalic, mucous membranes moist CV: Regular rate and rhythm, S1, S2 Lungs: Clear to auscultation bilaterally, no rales or crackles noted, no wheezes, good air entry Abdomen: Soft, nontender, nondistended Extremities: Normal to inspection Skin: No rashes noted, no lesions or wounds seen Psych: Unable to assess, somewhat anxious and preoccupied Objective Data Vital Signs Vital Signs: Vital Signs - 24 hr 11/26/22 13:45 11/26/22 14:03 11/26/22 15:23 Temperature 97.8 F Pulse Rate 76 83 76 Respiratory Rate 16 20 Blood Pressure 106/48 L 120/65 Pulse Oximetry 91 95 94 Oxygen Delivery Room Air 11/26/22 15:24 11/26/22 15:30 11/26/22 15:31 Temperature Pulse Rate 80 72 76 Respiratory Rate 19 16 18 Blood Pressure 122/72 Pulse Oximetry 96 95 94 Oxygen Delivery 11/26/22 15:45 11/26/22 15:46 11/26/22 16:00 Temperature Pulse Rate 73 71 69 Respiratory Rate 17 18 18 Blood Pressure 134/73 Pulse Oximetry 97 95 93 Oxygen Delivery 11/26/22 16:16 11/26/22 16:17 11/26/22 16:30 Temperature Pulse Rate 71 70 70 Respiratory Rate 18 15 16 Blood Pressure 130/72 Pulse Oximetry 94 95 94 Oxygen Delivery 11/26/22 16:31 11/26/22 16:59 11/26/22 17:00 Temperature Pulse Rate 72 67 66 Respiratory Rate 15 15 17 Blood Pressure 131/80 Pulse Oximetry 93 95 97 Oxygen Delivery 11/26/22 17:01 11/26/22 17:58 11/26/22 19:53 Temperature Pulse Rate 69 70 70 Respiratory Rate 15 17 14 Blood Pressure 134/72 123/74 131/70 Pulse Oximetry 96 96 96 Oxygen Delivery 11/26/22 21:10 11/26/22 22:42 11/27/22 04:19 Temperature 97.2 F L 97.8 F Pulse Rate 83 71 Respiratory Ra
[2022-11-27 14:00] VITALS: BP 97/50; PULSE 63; RESP 16; TEMP 36.2; O2SAT 95
--- NOTE | 2022-11-27 14:14 | PCOTNOTE ---
Attempted OT eval, patient refused due to just working with PT. Will follow.
[2022-11-27 20:01] VITALS: O2SAT 96
[2022-11-27 20:14] VITALS: BP 131/68; PULSE 72; RESP 20; TEMP 36.6; O2SAT 96
[2022-11-27] MEDS: CARBIDOPA/LEVODOPA 25/100 MG CR TABLET 1 TABLET PO (21:05)
[2022-11-27] MEDS: TAMSULOSIN HCL 0.4 MG CAPSULE PO (21:05)
[2022-11-28 04:53] VITALS: BP 137/76; PULSE 76; RESP 20; TEMP 36.6; O2SAT 96
[2022-11-28] MEDS: LINACLOTIDE 145 MCG CAPSULE 290 MCG PO (06:01)
[2022-11-28 07:54] VITALS: O2SAT 97
--- NOTE | 2022-11-28 08:37 | PC.NURSE ---
Patient confused, trying to get up, and ripped out IV.
[2022-11-28] MEDS: CARBIDOPA/LEVODOPA 25/100 MG TABLET 1 TABLET PO ×3 (09:27→16:44)
[2022-11-28] MEDS: MIDODRINE HCL 10 MG TABLET PO ×3 (09:27→16:44)
[2022-11-28] MEDS: ASPIRIN 81 MG ENTERIC TABLET PO ×2 (09:27→16:44)
[2022-11-28] MEDS: CARBIDOPA/LEVODOPA 12.5/50 MG TABLET 1 TABLET PO ×3 (09:27→16:44)
[2022-11-28] MEDS: FOLIC ACID 1 MG TABLET PO (09:27)
[2022-11-28] MEDS: ROSUVASTATIN 10 MG TABLET PO (09:27)
[2022-11-28] MEDS: FINASTERIDE 5 MG TABLET PO (09:27)
--- NOTE | 2022-11-28 09:56 | PM.CNOR ---
Assessment and Plan Assessment and plan (1) Closed fracture of right clavicle: Qualifiers: Clavicle location: shaft Encounter type: initial encounter Fracture alignment: displaced Qualified Code(s): S42.021A - Displaced fracture of shaft of right clavicle, initial encounter for closed fracture Code(s): S42.001A - Fracture of unspecified part of right clavicle, initial encounter for closed fracture Status: Acute (2) Parkinsons disease: Code(s): G20 - Parkinson's disease Status: Acute (3) Multiple falls: Code(s): R29.6 - Repeated falls Status: Acute Plan Displaced right clavicle fracture may be treated conservatively. Sling when out of bed. High fall risk with severe Parkison's symptoms. Prior shoulder pain and history of scapula fracture malunion. Risks associated with the fracture include deformity, malunion, and nonunion. Follow up in clinic with x-rays in 1 month. History of Present Illness HPI Consult date: 11/28/22 Chief complaint: right clavicle fracture, falls Narrative: Acute right shoulder pain after a fall. Pain at the clavicle. History of severe Parkinson's disease and frequent falls. History of scapular body fracture with malunion last year. Comfortable at rest. No associated complaints or injuries. Review of Systems Review of Systems: All systems reviewed & are unremarkable except as noted in HPI and below PMFSH Past Medical History Medical History (Updated 11/27/22 @ 09:43 by Jannette Spivey DO) Anemia Autonomic dysfunction BPH (benign prostatic hyperplasia) Chronic deep vein thrombosis Constipation by delayed colonic transit Deep vein thrombosis of left lower limb X2 Dupuytrens contracture Eczema GERD (gastroesophageal reflux disease) Hearing loss History of pelvic fracture Hyperlipidemia Iron deficiency anemia Kidney stones Multiple falls Orthostatic hypotension Osteoporosis Parkinsons disease Seizures Trigger finger of right hand Ventral hernia Vitamin B12 deficiency Vitamin D deficiency Surgical History Surgical History (Updated 11/27/22 @ 00:23 by Kianna Miller DO) History of appendectomy History of hemorrhoidectomy (12/29/21) Due to thrombosed hemorrhoid Hx of repair of right rotator cuff Hx of tonsillectomy S/P deep brain stimulator placement (~2011) Family History Family History Mother Family history of Alzheimer's disease Sibling Family history of malignant neoplasm of breast in first degree relative two sisters with breast cancer Father Family history of hepatitis Social History Social History Social History: Patient lives at home with his , Heydi, who is his surrogate MDM. His PCP is Dr. Rowe. He wishes to be listed as a Full Code. However he does not think he would want a G-tube. 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 Gender identity (if verbalized by the patient): Male Spiritual care concerns: No Agree to blood products: Yes Meds Home Medications and Allergies Home Medications Medication Instructions Recorded Confirmed Type folic acid 1 mg tablet See Rx Instructions .Route 06/10/22 11/26/22 Rx .COMPLEX #90 tabs aspirin 81 mg tablet,delayed 81 mg PO BID #180 t
--- NOTE | 2022-11-28 11:41 | PM.IMPN ---
Progress Note: A&P Assessment and Plan (1) Closed fracture of right clavicle: Qualifiers: Clavicle location: shaft Encounter type: initial encounter Fracture alignment: displaced Qualified Code(s): S42.021A - Displaced fracture of shaft of right clavicle, initial encounter for closed fracture Code(s): S42.001A - Fracture of unspecified part of right clavicle, initial encounter for closed fracture Status: Acute Assessment and Plan: Orthopedic consult rec conservative management, f/u clinic 1 month for repeat xrays PT/OT, fall precautions (2) Autonomic dysfunction: Code(s): G90.9 - Disorder of the autonomic nervous system, unspecified Status: Acute Assessment and Plan: Continue midodrine (3) Contusion of head: Qualifiers: Contusion of head detail: other part of head Encounter type: initial encounter Qualified Code(s): S00.83XA - Contusion of other part of head, initial encounter Code(s): S00.93XA - Contusion of unspecified part of head, initial encounter Status: Acute (4) Parkinsons disease: Code(s): G20 - Parkinson's disease Status: Acute Assessment and Plan: Continue home medications (5) Syncope: Code(s): R55 - Syncope and collapse Status: Acute Assessment and Plan: Likely multifactorial, secondary to dysautonomia with Parkinson's disease and recurrent low blood pressure, check orthostatic blood pressure Echo from 11/27 showed an EF of 60-65% with grade 1 diastolic dysfunction and no significant valvular abnormalities Monitor telemetry, continue midodrine Plan Discharge to rehab when able DVT prophylaxis with SCDs GI prophylaxis not indicated Code status full code Subjective Date/time seen: 11/28/22 11:41 Interval history: 32-year-old male with history of Parkinson's disease is presenting with a syncopal episode likely secondary to dysautonomia and shoulder pain, positive for right clavicular fracture. No overnight events noted. No chest pain or shortness of breath. No nausea, vomiting or diarrhea. No fevers or chills. C/o pain in shoulder, improved. Review of Systems Review of Systems: 12 point review of systems was assessed and was negative except as noted in the HPI Exam Narrative: General: No acute distress, alert and oriented per baseline, preoccupied with need to stand and use urinal, awaiting assistance HEENT: Atraumatic, normocephalic, mucous membranes moist CV: Regular rate and rhythm, S1, S2 Lungs: Clear to auscultation bilaterally, no rales or crackles noted, no wheezes, good air entry Abdomen: Soft, nontender, nondistended Extremities: Normal to inspection Skin: No rashes noted, no lesions or wounds seen Psych: Unable to assess, somewhat anxious and preoccupied Objective Data Vital Signs Vital Signs: Vital Signs - 24 hr 11/27/22 14:00 11/27/22 20:01 11/27/22 20:14 Temperature 97.1 F L 98 F Pulse Rate 63 72 Respiratory Rate 16 20 Blood Pressure 97/50 L 131/68 Pulse Oximetry 95 96 96 Oxygen Delivery Room Air 11/28/22 04:53 11/28/22 07:54 11/28/22 08:10 Temperature 97.8 F Pulse Rate 76 Respiratory Rate 20 Blood Pressure 137/76 Pulse Oximetry 96 97 Oxygen Delivery Room Air Room Air 11/28/22 08:28 Temperature Pulse Rate Respiratory Rate Blood Pressure Pulse Oximetry Oxygen Delivery Room Air Intake/Output Intake/Output: Intake & Output 11/25/22 11/26/22 11/27/22 11/28/22 23:59 23:59 23:59 23:59 Intake Total 1120 240 Output Total 600 975 Balance 520 -735 Meds/Results Medications: Active Medications Generic Name Dose Route Start Last Admin Trade Name Freq PRN Reason Stop Dose Admin Hydrocodone Bitart/Acetaminophen 1 tab 11/27/22 00:13 Hydrocodone/Acetaminophen (*Crx) 5-325 Mg Tablet PO Q4H PRN Pain Rated 4-6 Hydrocodone Bitart/Acetaminophen 1 tab 11/27
[2022-11-28 11:44] VITALS: BP 141/74
[2022-11-28 14:00] VITALS: BP 141/74; PULSE 79; RESP 16; TEMP 36.1; O2SAT 97
--- NOTE | 2022-11-28 14:06 | PC.NURSE ---
Carton Inspector called central supply and ordered sling for patient's arm
[2022-11-28 14:47] VITALS: BP 72/50; BP 95/62
[2022-11-28 20:12] VITALS: BP 146/87; PULSE 61; RESP 20; TEMP 36.5; O2SAT 98
[2022-11-28] MEDS: TAMSULOSIN HCL 0.4 MG CAPSULE PO (20:33)
[2022-11-28] MEDS: HYDROcodone/acetaminophen (*CRX) 10-325 MG TABLET 1 TAB PO (20:33)
[2022-11-28] MEDS: CARBIDOPA/LEVODOPA 25/100 MG CR TABLET 1 TABLET PO (20:33)
[2022-11-29] MEDS: LINACLOTIDE 145 MCG CAPSULE 290 MCG PO (05:53)
[2022-11-29 06:00] VITALS: BP 165/82; PULSE 58; RESP 20; TEMP 36.7; O2SAT 96
[2022-11-29] MEDS: ASPIRIN 81 MG ENTERIC TABLET PO ×2 (08:39→16:00)
[2022-11-29] MEDS: CARBIDOPA/LEVODOPA 12.5/50 MG TABLET 1 TABLET PO ×3 (08:39→15:57)
[2022-11-29] MEDS: FINASTERIDE 5 MG TABLET PO (08:39)
[2022-11-29] MEDS: MIDODRINE HCL 10 MG TABLET PO ×3 (08:39→16:00)
[2022-11-29] MEDS: ROSUVASTATIN 10 MG TABLET PO (08:39)
[2022-11-29] MEDS: CARBIDOPA/LEVODOPA 25/100 MG TABLET 1 TABLET PO ×3 (08:39→15:57)
[2022-11-29] MEDS: FOLIC ACID 1 MG TABLET PO (08:39)
--- NOTE | 2022-11-29 09:29 | PM.DS ---
DS: Admitting Diagnosis Discharge Date 12/01/22 Admitting Diagnosis Fall DS: Discharge Diagnosis Discharge Diagnosis (1) Closed fracture of right clavicle: Qualifiers: Clavicle location: shaft Encounter type: initial encounter Fracture alignment: displaced Qualified Code(s): S42.021A - Displaced fracture of shaft of right clavicle, initial encounter for closed fracture Code(s): S42.001A - Fracture of unspecified part of right clavicle, initial encounter for closed fracture Status: Acute Assessment and Plan: Orthopedic consult rec conservative management, f/u clinic 1 month for repeat xrays PT/OT, fall precautions (2) Autonomic dysfunction: Code(s): G90.9 - Disorder of the autonomic nervous system, unspecified Status: Acute Assessment and Plan: Continue midodrine (3) Contusion of head: Qualifiers: Contusion of head detail: other part of head Encounter type: initial encounter Qualified Code(s): S00.83XA - Contusion of other part of head, initial encounter Code(s): S00.93XA - Contusion of unspecified part of head, initial encounter Status: Acute (4) Parkinsons disease: Code(s): G20 - Parkinson's disease Status: Acute Assessment and Plan: Continue home medications (5) Syncope: Code(s): R55 - Syncope and collapse Status: Acute Assessment and Plan: Likely multifactorial, secondary to dysautonomia with Parkinson's disease and recurrent low blood pressure, check orthostatic blood pressure Echo from 11/27 showed an EF of 60-65% with grade 1 diastolic dysfunction and no significant valvular abnormalities Monitor telemetry, continue midodrine 11/30: hypotension recurring and worsened, give bolus and recheck symptoms, d/c flomax and observe Plan Discharge to rehab when able DVT prophylaxis with SCDs GI prophylaxis not indicated Code status full code DS: Summary Hospital Course Hospital Course: 72-year-old male with history of Parkinson's disease is presenting with a syncopal episode likely secondary to dysautonomia and shoulder pain, positive for right clavicular fracture. Orthopedic consult rec conservative management, f/u clinic 1 month for repeat xrays PT/OT, fall precautions Syncope likely multifactorial, secondary to dysautonomia with Parkinson's disease and recurrent low blood pressure, check orthostatic blood pressure Echo from 11/27 showed an EF of 60-65% with grade 1 diastolic dysfunction and no significant valvular abnormalities Monitor telemetry, continue midodrine Please see above and med rec for details. Time Spent with Patient Time attestation: Total time spent providing and/or coordinating discharge services: Exam Narrative: General: No acute distress, alert and oriented per baseline, preoccupied with need to stand and use urinal, awaiting assistance HEENT: Atraumatic, normocephalic, mucous membranes moist CV: Regular rate and rhythm, S1, S2 Lungs: Clear to auscultation bilaterally, no rales or crackles noted, no wheezes, good air entry Abdomen: Soft, nontender, nondistended Extremities: Normal to inspection Skin: No rashes noted, no lesions or wounds seen Psych: Unable to assess, somewhat anxious and preoccupied Discharge Plan Discharge Attending physician on discharge: Jannette Spivey Consulting providers: Cesar Irizarry Discharging Clinician: Jannette Spivey Patient Disposition: Inpatient Rehab Facility Activity: as tolerated Diet: as tolerated Discharge Instructions: Ortho instructions: Follow up in office ([facility]) in 4 weeks with Xrays. Please call for appointment. Apt scheduled for 12/29/22 @ 10:30a PT: Wear sling when out of bed. Stand Alone Forms: General Discharge Information Follow-up/Referrals: Santosh Rowe MD [Primary Care Provider] - Cesar Irizarry MD [Physicia
--- NOTE | 2022-11-29 13:18 | PM.IMPN ---
Progress Note: A&P Assessment and Plan (1) Closed fracture of right clavicle: Qualifiers: Clavicle location: shaft Encounter type: initial encounter Fracture alignment: displaced Qualified Code(s): S42.021A - Displaced fracture of shaft of right clavicle, initial encounter for closed fracture Code(s): S42.001A - Fracture of unspecified part of right clavicle, initial encounter for closed fracture Status: Acute Assessment and Plan: Orthopedic consult rec conservative management, f/u clinic 1 month for repeat xrays PT/OT, fall precautions (2) Autonomic dysfunction: Code(s): G90.9 - Disorder of the autonomic nervous system, unspecified Status: Acute Assessment and Plan: Continue midodrine (3) Contusion of head: Qualifiers: Contusion of head detail: other part of head Encounter type: initial encounter Qualified Code(s): S00.83XA - Contusion of other part of head, initial encounter Code(s): S00.93XA - Contusion of unspecified part of head, initial encounter Status: Acute (4) Parkinsons disease: Code(s): G20 - Parkinson's disease Status: Acute Assessment and Plan: Continue home medications (5) Syncope: Code(s): R55 - Syncope and collapse Status: Acute Assessment and Plan: Likely multifactorial, secondary to dysautonomia with Parkinson's disease and recurrent low blood pressure, check orthostatic blood pressure Echo from 11/27 showed an EF of 60-65% with grade 1 diastolic dysfunction and no significant valvular abnormalities Monitor telemetry, continue midodrine Plan Discharge to rehab when able DVT prophylaxis with SCDs GI prophylaxis not indicated Code status full code Subjective Date/time seen: 11/29/22 13:18 Interval history: 32-year-old male with history of Parkinson's disease is presenting with a syncopal episode likely secondary to dysautonomia and shoulder pain, positive for right clavicular fracture. No overnight events noted. No chest pain or shortness of breath. No nausea, vomiting or diarrhea. No fevers or chills. C/o pain in shoulder, improved. Review of Systems Review of Systems: 12 point review of systems was assessed and was negative except as noted in the HPI Exam Narrative: General: No acute distress, alert and oriented per baseline, preoccupied with need to stand and use urinal, awaiting assistance HEENT: Atraumatic, normocephalic, mucous membranes moist CV: Regular rate and rhythm, S1, S2 Lungs: Clear to auscultation bilaterally, no rales or crackles noted, no wheezes, good air entry Abdomen: Soft, nontender, nondistended Extremities: Normal to inspection Skin: No rashes noted, no lesions or wounds seen Psych: Unable to assess, somewhat anxious and preoccupied Objective Data Vital Signs Vital Signs: Vital Signs - 24 hr 11/28/22 14:00 11/28/22 14:47 11/28/22 14:47 Temperature 97.0 F L Pulse Rate 79 Respiratory Rate 16 Blood Pressure 141/74 H 95/62 L 72/50 L Pulse Oximetry 97 Oxygen Delivery 11/28/22 20:12 11/28/22 20:00 11/29/22 06:00 Temperature 97.7 F 98.1 F Pulse Rate 61 58 L Respiratory Rate 20 20 Blood Pressure 146/87 H 165/82 H Pulse Oximetry 98 96 Oxygen Delivery Room Air 11/29/22 08:39 Temperature Pulse Rate Respiratory Rate Blood Pressure Pulse Oximetry Oxygen Delivery Room Air Intake/Output Intake/Output: Intake & Output 11/26/22 11/27/22 11/28/22 11/29/22 23:59 23:59 23:59 23:59 Intake Total 1120 600 480 Output Total 600 9905 786 Balance 294 -596 -237 Meds/Results Medications: Active Medications Generic Name Dose Route Start Last Admin Trade Name Freq PRN Reason Stop Dose Admin Hydrocodone Bitart/Acetaminophen 1 tab 11/27/22 00:13 Hydrocodone/Acetaminophen (*Crx) 5-325 Mg Tablet PO Q4H PRN Pain Rated 4-6 Hydrocodone Bitart/Acetaminophen
[2022-11-29 14:00] VITALS: BP 103/80; PULSE 90; RESP 18; TEMP 36.8; O2SAT 96
[2022-11-29] MEDS: BISACODYL 10 MG SUPPOSITORY RECTAL (15:57)
--- NOTE | 2022-11-29 15:59 | PM.PNORT ---
Progress Note: A&P Assessment and Plan (1) Closed fracture of right clavicle: Qualifiers: Clavicle location: shaft Encounter type: initial encounter Fracture alignment: displaced Qualified Code(s): S42.021A - Displaced fracture of shaft of right clavicle, initial encounter for closed fracture Code(s): S42.001A - Fracture of unspecified part of right clavicle, initial encounter for closed fracture Status: Acute Assessment and Plan: Clavicle fracture may continue to be treated non-operatively. Pain only if he moves the arm. No pain at rest. Sling if out of bed. Plan to discharge to rehab. He will need to follow up in office with xrays in 1 month. Patient shows good understanding. Subjective Subjective Date/Time Seen: 11/29/22 15:59 Interval history: Patient resting comfortably in bed. Notes pain if he tries to move his arm. No pain at rest. No other complaints. Review of Systems Review of Systems: All systems reviewed & are unremarkable except as noted in HPI and below Exam Narrative: 72 y/o male. Normal weight. Notable Parkinson symptoms. Comfortable. Moderate swelling, ecchymosis and shortening of the clavicle. No significant skin tenting. Shoulder exam limited by pain. Limited hand function with finger spasticity. Distal neurovascular intact. No skin lesions. Objective Data Vital Signs Vital Signs: Vital Signs - 24 hr 11/28/22 20:12 11/28/22 20:00 11/29/22 06:00 Temperature 97.7 F 98.1 F Pulse Rate 61 58 L Respiratory Rate 20 20 Blood Pressure 146/87 H 165/82 H Pulse Oximetry 98 96 Oxygen Delivery Room Air 11/29/22 08:39 Temperature Pulse Rate Respiratory Rate Blood Pressure Pulse Oximetry Oxygen Delivery Room Air Intake/Output Intake/Output: Intake & Output 11/26/22 11/27/22 11/28/22 11/29/22 23:59 23:59 23:59 23:59 Intake Total 1120 600 480 Output Total 600 1175 1150 Balance 226 -112 -634 Meds/Results Medications: Active Medications Generic Name Dose Route Start Last Admin Trade Name Freq PRN Reason Stop Dose Admin Hydrocodone Bitart/Acetaminophen 1 tab 11/27/22 00:13 Hydrocodone/Acetaminophen (*Crx) 5-325 Mg Tablet PO Q4H PRN Pain Rated 4-6 Hydrocodone Bitart/Acetaminophen 1 tab 08/12/23 00:13 11/28/22 20:33 Hydrocodone/Acetaminophen (*Crx) 10-325 Mg Tablet PO 1 tab Q4H PRN Administration Pain Rated 7-10 Aspirin 81 mg 11/27/22 09:00 11/29/22 08:39 Aspirin 81 Mg Enteric Tablet PO 81 mg BID ADDY Administration Bisacodyl 10 mg 11/29/22 15:41 Bisacodyl 10 Mg Suppository RECTAL QAM PRN Constipation Carbidopa/Levodopa 1 tablet 11/27/22 00:20 11/28/22 20:33 Carbidopa/Levodopa 25/100 Mg Cr Tablet PO 1 tablet HS ADDY Administration Carbidopa/Levodopa 1 tablet 11/27/22 08:00 11/29/22 12:37 Carbidopa/Levodopa 25/100 Mg Tablet PO 1 tablet 0800,1200,1500 ADDY Administration Carbidopa/Levodopa 1 tablet 11/27/22 08:00 11/29/22 12:37 Carbidopa/Levodopa 12.5/50 Mg Tablet PO 1 tablet 0800,1200,1500 ADDY Administration Finasteride 5 mg 11/27/22 09:00 11/29/22 08:39 Finasteride 5 Mg Tablet PO 5 mg DAILY ADDY Administration Folic Acid 1 mg 11/27/22 09:00 11/29/22 08:39 Folic Acid 1 Mg Tablet PO 1 mg DAILY ADDY Administration Linaclotide 290 mcg 11/27/22 06:30 11/29/22 05:53 Linaclotide 145 Mcg Capsule PO 290 mcg DAILY@0630 ADDY Administration Midodrine 10 mg 11/27/22 09:00 11/29/22 12:37 Midodrine Hcl 10 Mg Tablet PO 10 mg TID ADDY Administration Rosuvastatin Calcium 10 mg 11/27/22 09:00 11/29/22 08:39 Rosuvastatin 10 Mg Tablet PO 10 mg DAILY ADDY Administration Tamsulosin HCl 0.4 mg 11/27/22 00:15 11/28/22 20:33 Tamsulosin Hcl 0.4 Mg Capsule PO 0.4 mg HS ADDY Administration Radiology Results: ITS Impressions Head CT 11/26/22 14:23 IMPRESSION: No acute intracranial proces
[2022-11-29 16:27] VITALS: BP 88/65
[2022-11-29 16:28] VITALS: BP 73/56
[2022-11-29] MEDS: CARBIDOPA/LEVODOPA 25/100 MG CR TABLET 1 TABLET PO (20:14)
[2022-11-29] MEDS: TAMSULOSIN HCL 0.4 MG CAPSULE PO (20:14)
[2022-11-29 22:00] VITALS: BP 159/77; PULSE 65; RESP 20; TEMP 36.4; O2SAT 96
--- NOTE | 2022-11-30 04:24 | PC.NURSE ---
When rounding on pt I found he had removed hiss hand brace. I educated him he really needed to have it on. He is alert and oriented and stated it hurts his hand and would not allow it to be put back on
[2022-11-30 06:00] VITALS: BP 129/69; PULSE 69; RESP 18; TEMP 36.5; O2SAT 95
[2022-11-30] MEDS: LINACLOTIDE 145 MCG CAPSULE 290 MCG PO (06:04)
[2022-11-30] MEDS: CARBIDOPA/LEVODOPA 12.5/50 MG TABLET 1 TABLET PO ×3 (08:30→17:26)
[2022-11-30] MEDS: MIDODRINE HCL 10 MG TABLET PO ×3 (08:30→17:26)
[2022-11-30] MEDS: ROSUVASTATIN 10 MG TABLET PO (08:30)
[2022-11-30] MEDS: FOLIC ACID 1 MG TABLET PO (08:30)
[2022-11-30] MEDS: CARBIDOPA/LEVODOPA 25/100 MG TABLET 1 TABLET PO ×3 (08:30→17:26)
[2022-11-30] MEDS: ASPIRIN 81 MG ENTERIC TABLET PO ×2 (08:30→17:26)
[2022-11-30] MEDS: FINASTERIDE 5 MG TABLET PO (08:30)
[2022-11-30 10:40] VITALS: BP 66/43
--- NOTE | 2022-11-30 10:45 | PCOTNOTE ---
PT in the room with Patient at this time. OT arrived at room to find out that Patient is having very low blood pressures and nursing staff also present and attempting to place an IV. Patient is not able to be seen at this time.
[2022-11-30] MEDS: SODIUM CHLORIDE 0.9% IV 1,000 ML 999 ML IV CONT (10:50)
--- NOTE | 2022-11-30 11:34 | PM.IMPN ---
Progress Note: A&P Assessment and Plan (1) Closed fracture of right clavicle: Qualifiers: Clavicle location: shaft Encounter type: initial encounter Fracture alignment: displaced Qualified Code(s): S42.021A - Displaced fracture of shaft of right clavicle, initial encounter for closed fracture Code(s): S42.001A - Fracture of unspecified part of right clavicle, initial encounter for closed fracture Status: Acute Assessment and Plan: Orthopedic consult rec conservative management, f/u clinic 1 month for repeat xrays PT/OT, fall precautions (2) Autonomic dysfunction: Code(s): G90.9 - Disorder of the autonomic nervous system, unspecified Status: Acute Assessment and Plan: Continue midodrine (3) Contusion of head: Qualifiers: Contusion of head detail: other part of head Encounter type: initial encounter Qualified Code(s): S00.83XA - Contusion of other part of head, initial encounter Code(s): S00.93XA - Contusion of unspecified part of head, initial encounter Status: Acute (4) Parkinsons disease: Code(s): G20 - Parkinson's disease Status: Acute Assessment and Plan: Continue home medications (5) Syncope: Code(s): R55 - Syncope and collapse Status: Acute Assessment and Plan: Likely multifactorial, secondary to dysautonomia with Parkinson's disease and recurrent low blood pressure, check orthostatic blood pressure Echo from 11/27 showed an EF of 60-65% with grade 1 diastolic dysfunction and no significant valvular abnormalities Monitor telemetry, continue midodrine 11/30: hypotension recurring and worsened, give bolus and recheck symptoms, d/c flomax and observe Plan Discharge to rehab when able DVT prophylaxis with SCDs GI prophylaxis not indicated Code status full code Subjective Date/time seen: 11/30/22 11:34 Interval history: 32-year-old male with history of Parkinson's disease is presenting with a syncopal episode likely secondary to dysautonomia and shoulder pain, positive for right clavicular fracture. No overnight events noted. No chest pain or shortness of breath. No nausea, vomiting or diarrhea. No fevers or chills. C/o pain in shoulder, improved. Review of Systems Review of Systems: 12 point review of systems was assessed and was negative except as noted in the HPI Exam Narrative: General: No acute distress, alert and oriented per baseline, preoccupied with need to stand and use urinal, awaiting assistance HEENT: Atraumatic, normocephalic, mucous membranes moist CV: Regular rate and rhythm, S1, S2 Lungs: Clear to auscultation bilaterally, no rales or crackles noted, no wheezes, good air entry Abdomen: Soft, nontender, nondistended Extremities: Normal to inspection Skin: No rashes noted, no lesions or wounds seen Psych: Unable to assess, somewhat anxious and preoccupied Objective Data Vital Signs Vital Signs: Vital Signs - 24 hr 11/29/22 14:00 11/29/22 16:27 11/29/22 16:28 Temperature 98.2 F Pulse Rate 90 Respiratory Rate 18 Blood Pressure 103/80 88/65 L 73/56 L Pulse Oximetry 96 Oxygen Delivery 11/29/22 20:00 11/29/22 22:00 11/30/22 06:00 Temperature 97.6 F 97.7 F Pulse Rate 65 69 Respiratory Rate 20 18 Blood Pressure 159/77 H 129/69 Pulse Oximetry 96 95 Oxygen Delivery Room Air 11/30/22 10:40 11/30/22 08:30 Temperature Pulse Rate Respiratory Rate Blood Pressure 66/43 L Pulse Oximetry Oxygen Delivery Room Air Intake/Output Intake/Output: Intake & Output 11/27/22 11/28/22 11/29/22 11/30/22 23:59 23:59 23:59 23:59 Intake Total 1120 600 960 340 Output Total 600 1175 1350 350 Balance 520 -575 -390 -10 Meds/Results Medications: Active Medications Generic Name Dose Route Start Last Admin Trade Name Freq PRN Reason Stop Dose Admin Hydrocodone Bitart/Acetaminophen 1 tab 11/27/22
[2022-11-30 11:55] VITALS: BP 112/58
[2022-11-30 12:19] LABS: Basophils Percent Auto 0.4 % (0.2-1.2); Eosinophils Absolute Auto 0.2 K/mm3 (0-0.3); Eosinophils Percent Auto 2.4 % (0-4.4); Hematocrit 38.4 % (42.0-52.0); Hemoglobin 12.5 g/dL (14.0-18.0); Immature Granulocyte Absolute 0.01 K/mm3 (0.00-0.031); Immature Granulocyte Percent A 0.1 % (0-0.5); Lymphocytes Absolute Auto 1.41 K/mm3 (0.9-3.2); Lymphocytes Percent Auto 17.8 % (18.3-44.2); Mean Corpuscular HGB Conc 32.6 g/dl (32-36); Mean Corpuscular Hemoglobin 32.5 pg (26-34); Mean Corpuscular Volume 99.7 fl (80-100); Monocytes Absolute Auto 0.9 K/mm3 (0.1-0.6); Monocytes Percent Auto 11.5 % (2.6-8.5); Neutrophils Absolute Auto 5.4 K/mm3 (1.3-6.7); Neutrophils Percent Auto 67.8 % (45.5-73.1); Platelet Count Result 140 k/mm3 (150-375); Red Blood Count 3.85 M/mm3 (4.6-6.20); Red Cell Distribution Width 12.4 % (11.5-14.5); White Blood Count 7.9 K/mm3 (4.5-10.0)
[2022-11-30 12:38] LABS: Alanine Aminotransferase 12 U/L (6-50); Albumin Level 3.4 g/dL (3.5-5.1); Alkaline Phosphatase 41 U/L (38-126); Anion Gap 2 mmol/L (8-16); Aspartate Amino Transferase 21 U/L (17-59); Bilirubin,Total 0.4 mg/dL (0.2-1.3); Blood Urea Nitrogen 22 mg/dL (9-20); Calcium 8.2 mg/dL (8.4-10.2); Carbon Dioxide 25 mmol/L (22-30); Chloride 108 mmol/L (98-107); Estimated CRCL calculation 57 ml/min; Estimated Glomerular Filt Rate > 60; Glucose 126 mg/dL (65-110); Potassium 3.5 mmol/L (3.4-5.0); Sodium 135 mmol/L (137-145)
[2022-11-30 14:00] VITALS: BP 107/58; PULSE 88; RESP 16; TEMP 36.1; O2SAT 94
[2022-11-30 15:11] VITALS: BP 60/36; BP 92/62
[2022-11-30 20:48] VITALS: BP 143/70; PULSE 60; RESP 16; TEMP 36.3; O2SAT 95
[2022-11-30] MEDS: polyethylene glycoL 3350 17 GM POWD.PACK PO (20:49)
[2022-11-30] MEDS: CARBIDOPA/LEVODOPA 25/100 MG CR TABLET 1 TABLET PO (20:49)
[2022-12-01 04:42] VITALS: BP 142/83; PULSE 60; RESP 14; TEMP 36.2; O2SAT 97
[2022-12-01] MEDS: LINACLOTIDE 145 MCG CAPSULE 290 MCG PO (05:05)
[2022-12-01 06:12] LABS: Basophils Percent Auto 0.5 % (0.2-1.2); Eosinophils Absolute Auto 0.4 K/mm3 (0-0.3); Eosinophils Percent Auto 5.8 % (0-4.4); Hematocrit 40.5 % (42.0-52.0); Hemoglobin 13.6 g/dL (14.0-18.0); Immature Granulocyte Absolute 0.01 K/mm3 (0.00-0.031); Immature Granulocyte Percent A 0.2 % (0-0.5); Lymphocytes Absolute Auto 1.76 K/mm3 (0.9-3.2); Mean Corpuscular HGB Conc 33.6 g/dl (32-36); Mean Corpuscular Hemoglobin 32.7 pg (26-34); Mean Corpuscular Volume 97.4 fl (80-100); Mean Platelet Volume 12.6 fl (7.4-10.4); Monocytes Absolute Auto 0.8 K/mm3 (0.1-0.6); Monocytes Percent Auto 12.7 % (2.6-8.5); Neutrophils Absolute Auto 3.5 K/mm3 (1.3-6.7); Neutrophils Percent Auto 53.8 % (45.5-73.1); Platelet Count Result 164 k/mm3 (150-375); Red Blood Count 4.16 M/mm3 (4.6-6.20); Red Cell Distribution Width 12.1 % (11.5-14.5); White Blood Count 6.5 K/mm3 (4.5-10.0)
[2022-12-01 06:26] LABS: Alanine Aminotransferase 10 U/L (6-50); Albumin Level 3.7 g/dL (3.5-5.1); Alkaline Phosphatase 49 U/L (38-126); Anion Gap 3 mmol/L (8-16); Aspartate Amino Transferase 22 U/L (17-59); Bilirubin,Total 0.5 mg/dL (0.2-1.3); Blood Urea Nitrogen 24 mg/dL (9-20); Calcium 8.5 mg/dL (8.4-10.2); Carbon Dioxide 29 mmol/L (22-30); Chloride 107 mmol/L (98-107); Estimated CRCL calculation 57 ml/min; Estimated Glomerular Filt Rate > 60; Glucose 93 mg/dL (65-110); Potassium 3.8 mmol/L (3.4-5.0); Sodium 139 mmol/L (137-145)
[2022-12-01] MEDS: CARBIDOPA/LEVODOPA 12.5/50 MG TABLET 1 TABLET PO ×2 (09:19→17:34)
[2022-12-01] MEDS: MIDODRINE HCL 10 MG TABLET PO ×2 (09:20→17:34)
[2022-12-01] MEDS: ROSUVASTATIN 10 MG TABLET PO (09:20)
[2022-12-01] MEDS: FOLIC ACID 1 MG TABLET PO (09:20)
[2022-12-01] MEDS: polyethylene glycoL 3350 17 GM POWD.PACK PO (09:20)
[2022-12-01] MEDS: ASPIRIN 81 MG ENTERIC TABLET PO ×2 (09:20→17:35)
[2022-12-01] MEDS: CARBIDOPA/LEVODOPA 25/100 MG TABLET 1 TABLET PO ×2 (09:20→17:34)
[2022-12-01] MEDS: FINASTERIDE 5 MG TABLET PO (09:20)
--- NOTE | 2022-12-01 11:03 | PCPTNOTE ---
Attempted to see patient for PT, however patient had visitors and declined therapy at this time. Patient would like PT to check back later.
[2022-12-01 13:50] VITALS: BP 108/74; BP 128/70; BP 69/54; BP 95/77
[2022-12-01 14:00] VITALS: BP 112/68; PULSE 67; RESP 18; TEMP 36.7; O2SAT 94
[2022-12-01] MEDS: CARBIDOPA/LEVODOPA 25/100 MG CR TABLET 1 TABLET PO (19:56)
[2022-12-01 20:02] VITALS: BP 129/71; PULSE 72; RESP 16; TEMP 36.4; O2SAT 97
[2022-12-01 22:26] VITALS: O2SAT 97
[2022-12-02] VITALS (7 sets, daily range): BP systolic 79–132; BP diastolic 58–73; PULSE 60–93; RESP 18; TEMP 36.4–37.1; O2SAT 94–95
[2022-12-02 06:00] LABS: Basophils Absolute Auto 0.1 K/mm3 (0.0-0.1); Basophils Percent Auto 0.8 % (0.2-1.2); Eosinophils Absolute Auto 0.4 K/mm3 (0-0.3); Eosinophils Percent Auto 6.4 % (0-4.4); Hematocrit 39.2 % (42.0-52.0); Hemoglobin 13.3 g/dL (14.0-18.0); Immature Granulocyte Absolute 0.02 K/mm3 (0.00-0.031); Immature Granulocyte Percent A 0.3 % (0-0.5); Lymphocytes Percent Auto 31.2 % (18.3-44.2); Mean Corpuscular HGB Conc 33.9 g/dl (32-36); Mean Corpuscular Hemoglobin 33.1 pg (26-34); Mean Corpuscular Volume 97.5 fl (80-100); Mean Platelet Volume 12.3 fl (7.4-10.4); Monocytes Absolute Auto 0.7 K/mm3 (0.1-0.6); Monocytes Percent Auto 12.2 % (2.6-8.5); Neutrophils Percent Auto 49.1 % (45.5-73.1); Platelet Count Result 159 k/mm3 (150-375); Red Blood Count 4.02 M/mm3 (4.6-6.20); Red Cell Distribution Width 12.1 % (11.5-14.5); White Blood Count 6.1 K/mm3 (4.5-10.0)
[2022-12-02 06:10] LABS: Alanine Aminotransferase 12 U/L (6-50); Albumin Level 3.4 g/dL (3.5-5.1); Alkaline Phosphatase 45 U/L (38-126); Anion Gap 1 mmol/L (8-16); Aspartate Amino Transferase 21 U/L (17-59); Bilirubin,Total 0.5 mg/dL (0.2-1.3); Blood Urea Nitrogen 23 mg/dL (9-20); Calcium 8.6 mg/dL (8.4-10.2); Carbon Dioxide 27 mmol/L (22-30); Chloride 106 mmol/L (98-107); Estimated CRCL calculation 52 ml/min; Estimated Glomerular Filt Rate > 60; Glucose 90 mg/dL (65-110); Potassium 3.9 mmol/L (3.4-5.0); Sodium 134 mmol/L (137-145)
[2022-12-02] MEDS: LINACLOTIDE 145 MCG CAPSULE 290 MCG PO (06:22)
[2022-12-02] MEDS: CARBIDOPA/LEVODOPA 12.5/50 MG TABLET 1 TABLET PO ×3 (09:14→15:09)
[2022-12-02] MEDS: MIDODRINE HCL 10 MG TABLET PO ×3 (09:14→16:11)
[2022-12-02] MEDS: polyethylene glycoL 3350 17 GM POWD.PACK PO (09:15)
[2022-12-02] MEDS: ROSUVASTATIN 10 MG TABLET PO (09:15)
[2022-12-02] MEDS: CARBIDOPA/LEVODOPA 25/100 MG TABLET 1 TABLET PO ×3 (09:15→15:09)
[2022-12-02] MEDS: FINASTERIDE 5 MG TABLET PO (09:15)
[2022-12-02] MEDS: FOLIC ACID 1 MG TABLET PO (09:15)
--- NOTE | 2022-12-02 11:11 | PM.IMPN ---
Progress Note: A&P Assessment and Plan (1) Closed fracture of right clavicle: Qualifiers: Clavicle location: shaft Encounter type: initial encounter Fracture alignment: displaced Qualified Code(s): S42.021A - Displaced fracture of shaft of right clavicle, initial encounter for closed fracture Code(s): S42.001A - Fracture of unspecified part of right clavicle, initial encounter for closed fracture Status: Acute Assessment and Plan: Orthopedic consult rec conservative management, f/u clinic 1 month for repeat xrays PT/OT, fall precautions (2) Autonomic dysfunction: Code(s): G90.9 - Disorder of the autonomic nervous system, unspecified Status: Acute Assessment and Plan: Continue midodrine (3) Contusion of head: Qualifiers: Contusion of head detail: other part of head Encounter type: initial encounter Qualified Code(s): S00.83XA - Contusion of other part of head, initial encounter Code(s): S00.93XA - Contusion of unspecified part of head, initial encounter Status: Acute (4) Parkinsons disease: Code(s): G20 - Parkinson's disease Status: Acute Assessment and Plan: Continue home medications (5) Syncope: Code(s): R55 - Syncope and collapse Status: Acute Assessment and Plan: Likely multifactorial, secondary to dysautonomia with Parkinson's disease and recurrent low blood pressure, check orthostatic blood pressure Echo from 11/27 showed an EF of 60-65% with grade 1 diastolic dysfunction and no significant valvular abnormalities Monitor telemetry, continue midodrine Plan Pending placement. Pending insurance authorization Subjective Date/time seen: 12/02/22 11:11 Interval history: Stable Review of Systems Review of Systems: 12 point review of systems was assessed and was negative except as noted in the HPI Exam Narrative: General: No acute distress, alert and oriented per baseline, preoccupied with need to stand and use urinal, awaiting assistance HEENT: Atraumatic, normocephalic, mucous membranes moist CV: Regular rate and rhythm, S1, S2 Lungs: Clear to auscultation bilaterally, no rales or crackles noted, no wheezes, good air entry Abdomen: Soft, nontender, nondistended Extremities: Normal to inspection Skin: No rashes noted, no lesions or wounds seen Psych: Unable to assess, somewhat anxious and preoccupied Objective Data Vital Signs Vital Signs: Vital Signs - 24 hr 12/01/22 14:00 12/01/22 13:50 12/01/22 13:50 Temperature 98.0 F Pulse Rate 67 Respiratory Rate 18 Blood Pressure 112/68 108/74 95/77 L Pulse Oximetry 94 Oxygen Delivery 12/01/22 13:50 12/01/22 13:50 12/01/22 20:02 Temperature 97.6 F Pulse Rate 72 Respiratory Rate 16 Blood Pressure 69/54 L 128/70 129/71 Pulse Oximetry 97 Oxygen Delivery 12/01/22 22:26 12/02/22 04:30 12/02/22 08:00 Temperature 97.9 F Pulse Rate 60 Respiratory Rate 18 Blood Pressure 132/71 Pulse Oximetry 97 95 Oxygen Delivery Room Air Room Air Intake/Output Intake/Output: Intake & Output 11/29/22 11/30/22 12/01/22 12/02/22 23:59 23:59 23:59 23:59 Intake Total 960 / 960 1820 / 1820 960 / 960 530 / 530 Output Total 1350 / 1350 1250 / 1250 2900 / 2900 1050 / 1050 Balance -390 / -390 570 / 570 -1940 / -1940 -520 / -520 Meds/Results Medications: Active Medications Generic Name Dose Route Start Last Admin Trade Name Freq PRN Reason Stop Dose Admin Hydrocodone Bitart/Acetaminophen 1 tab 11/27/22 00:13 11/28/22 20:33 Hydrocodone/Acetaminophen (*Crx) 10-325 Mg Tablet PO 1 tab Q4H PRN Administration Pain Rated 7-10 Aspirin 81 mg 12/03/22 09:00 Aspirin 81 Mg Enteric Tablet PO QAM ADDY Bisacodyl 10 mg 11/29/22 15:41 11/29/22 15:57 Bisacodyl 10 Mg Suppository RECTAL 10 mg QAM PRN Administration Constipation Carbidopa/Levodopa
--- NOTE | 2022-12-02 12:47 | PM.PNORT ---
Progress Note: A&P Assessment and Plan (1) Closed fracture of right clavicle: Qualifiers: Clavicle location: shaft Encounter type: initial encounter Fracture alignment: displaced Qualified Code(s): S42.021A - Displaced fracture of shaft of right clavicle, initial encounter for closed fracture Code(s): S42.001A - Fracture of unspecified part of right clavicle, initial encounter for closed fracture Status: Acute Assessment and Plan: Clavicle fracture may continue to be treated non-operatively. Pain only if he moves the arm. No pain at rest. Sling if out of bed. Plan to discharge to rehab. Continue PT/OT. Discussed risks and expectations. He shows good understanding. He will need to follow up in office with xrays in 1 month. Apt scheduled for 12/29/22 @ 10:30a. Subjective Subjective Date/Time Seen: 12/02/22 12:47 Interval history: Patient sitting up at bedside with physical therapy at the time of my visit. Patient note that his clavicle is feeling better. Pain with motion. He has been having some low blood pressures with formal physical therapy. He is awaiting discharge to inpatient rehab. Review of Systems Review of Systems: All systems reviewed & are unremarkable except as noted in HPI and below Exam Narrative: 72 y/o male. Normal weight. Notable Parkinson symptoms. Comfortable. Wearing sling. Moderate swelling, ecchymosis and shortening of the clavicle. No significant skin tenting. Shoulder exam limited by pain. Limited hand function with finger spasticity. Distal neurovascular intact. No skin lesions. Objective Data Vital Signs Vital Signs: Vital Signs - 24 hr 12/01/22 14:00 12/01/22 13:50 12/01/22 13:50 Temperature 98.0 F Pulse Rate 67 Respiratory Rate 18 Blood Pressure 112/68 108/74 95/77 L Pulse Oximetry 94 Oxygen Delivery 12/01/22 13:50 12/01/22 13:50 12/01/22 20:02 Temperature 97.6 F Pulse Rate 72 Respiratory Rate 16 Blood Pressure 69/54 L 128/70 129/71 Pulse Oximetry 97 Oxygen Delivery 12/01/22 22:26 12/02/22 04:30 12/02/22 08:00 Temperature 97.9 F Pulse Rate 60 Respiratory Rate 18 Blood Pressure 132/71 Pulse Oximetry 97 95 Oxygen Delivery Room Air Room Air 12/02/22 11:15 12/02/22 11:24 12/02/22 11:30 Temperature Pulse Rate 93 87 65 Respiratory Rate Blood Pressure 114/69 102/64 79/59 L Pulse Oximetry Oxygen Delivery 12/02/22 11:33 Temperature Pulse Rate 92 Respiratory Rate Blood Pressure 95/73 L Pulse Oximetry Oxygen Delivery Intake/Output Intake/Output: Intake & Output 11/29/22 11/30/22 12/01/22 12/02/22 23:59 23:59 23:59 23:59 Intake Total 960 1820 960 530 Output Total 1350 1250 2900 1050 Balance -390 570 -1940 -520 Meds/Results Medications: Active Medications Generic Name Dose Route Start Last Admin Trade Name Freq PRN Reason Stop Dose Admin Hydrocodone Bitart/Acetaminophen 1 tab 11/27/22 00:13 11/28/22 20:33 Hydrocodone/Acetaminophen (*Crx) 10-325 Mg Tablet PO 1 tab Q4H PRN Administration Pain Rated 7-10 Aspirin 81 mg 12/03/22 09:00 Aspirin 81 Mg Enteric Tablet PO QAM ADDY Bisacodyl 10 mg 11/29/22 15:41 11/29/22 15:57 Bisacodyl 10 Mg Suppository RECTAL 10 mg QAM PRN Administration Constipation Carbidopa/Levodopa 1 tablet 11/27/22 00:20 12/01/22 19:56 Carbidopa/Levodopa 25/100 Mg Cr Tablet PO 1 tablet HS ADDY Administration Carbidopa/Levodopa 1 tablet 11/27/22 08:00 12/02/22 12:21 Carbidopa/Levodopa 25/100 Mg Tablet PO 1 tablet 0800,1200,1500 ADDY Administration Carbidopa/Levodopa 1 tablet 11/27/22 08:00 12/02/22 12:21 Carbidopa/Levodopa 12.5/50 Mg Tablet PO 1 tablet 0800,1200,1500 ADDY Administration Finasteride 5 mg 11/27/22 09:00 12/02/22 09:15 Finasteride 5 Mg Tablet PO 5 mg DAILY ADDY Administration Folic Acid 1 mg 11/27/22 09:00 12/02/22 09:15 Folic Aci
[2022-12-02] MEDS: CARBIDOPA/LEVODOPA 25/100 MG CR TABLET 1 TABLET PO (19:53)
[2022-12-03 05:41] VITALS: BP 117/70; PULSE 58; RESP 16; TEMP 36.8; O2SAT 95
[2022-12-03] MEDS: LINACLOTIDE 145 MCG CAPSULE 290 MCG PO (06:02)
[2022-12-03] MEDS: polyethylene glycoL 3350 17 GM POWD.PACK PO ×2 (08:46→12:03)
[2022-12-03] MEDS: ASPIRIN 81 MG ENTERIC TABLET PO (08:48)
[2022-12-03] MEDS: FINASTERIDE 5 MG TABLET PO (08:48)
[2022-12-03] MEDS: CARBIDOPA/LEVODOPA 25/100 MG TABLET 1 TABLET PO ×3 (08:48→14:57)
[2022-12-03] MEDS: MIDODRINE HCL 10 MG TABLET PO ×3 (08:48→17:00)
[2022-12-03] MEDS: ROSUVASTATIN 10 MG TABLET PO (08:48)
[2022-12-03] MEDS: FOLIC ACID 1 MG TABLET PO (08:48)
[2022-12-03 08:52] VITALS: BP 71/53
[2022-12-03 08:54] VITALS: BP 91/65
[2022-12-03] MEDS: CARBIDOPA/LEVODOPA 12.5/50 MG TABLET 1 TABLET PO ×3 (08:58→14:58)
[2022-12-03] MEDS: BISACODYL 10 MG SUPPOSITORY RECTAL (09:06)
--- NOTE | 2022-12-03 11:42 | PM.IMPN ---
Progress Note: A&P Assessment and Plan (1) Closed fracture of right clavicle: Qualifiers: Clavicle location: shaft Encounter type: initial encounter Fracture alignment: displaced Qualified Code(s): S42.021A - Displaced fracture of shaft of right clavicle, initial encounter for closed fracture Code(s): S42.001A - Fracture of unspecified part of right clavicle, initial encounter for closed fracture Status: Acute Assessment and Plan: Orthopedic consult rec conservative management, f/u clinic 1 month for repeat xrays PT/OT, fall precautions (2) Autonomic dysfunction: Code(s): G90.9 - Disorder of the autonomic nervous system, unspecified Status: Acute Assessment and Plan: Continue midodrine (3) Contusion of head: Qualifiers: Contusion of head detail: other part of head Encounter type: initial encounter Qualified Code(s): S00.83XA - Contusion of other part of head, initial encounter Code(s): S00.93XA - Contusion of unspecified part of head, initial encounter Status: Acute (4) Parkinsons disease: Code(s): G20 - Parkinson's disease Status: Acute Assessment and Plan: Continue home medications (5) Syncope: Code(s): R55 - Syncope and collapse Status: Acute Assessment and Plan: Likely multifactorial, secondary to dysautonomia with Parkinson's disease and recurrent low blood pressure, check orthostatic blood pressure Echo from 11/27 showed an EF of 60-65% with grade 1 diastolic dysfunction and no significant valvular abnormalities Monitor telemetry, continue midodrine Plan Pending placement. Pending insurance authorization Subjective Date/time seen: 12/03/22 11:42 Interval history: no change Review of Systems Review of Systems: 12 point review of systems was assessed and was negative except as noted in the HPI Exam Narrative: General: No acute distress, alert and oriented per baseline, preoccupied with need to stand and use urinal, awaiting assistance HEENT: Atraumatic, normocephalic, mucous membranes moist CV: Regular rate and rhythm, S1, S2 Lungs: Clear to auscultation bilaterally, no rales or crackles noted, no wheezes, good air entry Abdomen: Soft, nontender, nondistended Extremities: Normal to inspection Skin: No rashes noted, no lesions or wounds seen Psych: Unable to assess, somewhat anxious and preoccupied Objective Data Vital Signs Vital Signs: Vital Signs - 24 hr 12/02/22 14:30 12/02/22 19:52 12/03/22 05:41 Temperature 98.7 F 97.6 F 98.3 F Pulse Rate 76 69 58 L Respiratory Rate 18 18 16 Blood Pressure 90/58 L 130/71 117/70 Pulse Oximetry 94 94 95 Oxygen Delivery 12/03/22 08:53 12/03/22 08:52 12/03/22 08:54 Temperature Pulse Rate Respiratory Rate Blood Pressure 71/53 L 91/65 L Pulse Oximetry Oxygen Delivery Room Air Intake/Output Intake/Output: Intake & Output 11/30/22 12/01/22 12/02/22 12/03/22 23:59 23:59 23:59 23:59 Intake Total 1820 / 1820 960 / 960 970 / 970 240 / 240 Output Total 1250 / 1250 2900 / 2900 1500 / 1500 450 / 450 Balance 570 / 570 -1940 / -1940 -530 / -530 -210 / -210 Meds/Results Medications: Active Medications Generic Name Dose Route Start Last Admin Trade Name Freq PRN Reason Stop Dose Admin Hydrocodone Bitart/Acetaminophen 1 tab 11/27/22 00:13 11/28/22 20:33 Hydrocodone/Acetaminophen (*Crx) 10-325 Mg Tablet PO 1 tab Q4H PRN Administration Pain Rated 7-10 Aspirin 81 mg 12/03/22 09:00 12/03/22 08:48 Aspirin 81 Mg Enteric Tablet PO 81 mg QAM ADDY Administration Bisacodyl 10 mg 11/29/22 15:41 12/03/22 09:06 Bisacodyl 10 Mg Suppository RECTAL 10 mg QAM PRN Administration Constipation Carbidopa/Levodopa 1 tablet 11/27/22 00:20 12/02/22 19:53 Carbidopa/Levodopa 25/100 Mg Cr Tablet PO 1 tablet HS ADDY Administration Carbidopa/Levodopa
[2022-12-03 14:18] VITALS: BP 123/68; PULSE 70; RESP 19; TEMP 36.2; O2SAT 95
[2022-12-03] MEDS: CARBIDOPA/LEVODOPA 25/100 MG CR TABLET 1 TABLET PO (20:07)
[2022-12-03 21:50] VITALS: BP 87/51; PULSE 88; RESP 18; TEMP 36.5; O2SAT 96
[2022-12-03 22:14] VITALS: BP 102/72
[2022-12-04] MEDS: LINACLOTIDE 145 MCG CAPSULE 290 MCG PO (05:26)
[2022-12-04 06:00] VITALS: BP 91/54; PULSE 72; RESP 20; TEMP 36.7; O2SAT 96
[2022-12-04] MEDS: ASPIRIN 81 MG ENTERIC TABLET PO (08:37)
[2022-12-04] MEDS: ROSUVASTATIN 10 MG TABLET PO (08:37)
[2022-12-04] MEDS: MIDODRINE HCL 10 MG TABLET PO ×3 (08:37→17:12)
[2022-12-04] MEDS: polyethylene glycoL 3350 17 GM POWD.PACK PO (08:37)
[2022-12-04] MEDS: FINASTERIDE 5 MG TABLET PO (08:38)
[2022-12-04] MEDS: CARBIDOPA/LEVODOPA 25/100 MG TABLET 1 TABLET PO ×3 (08:38→15:04)
[2022-12-04] MEDS: FOLIC ACID 1 MG TABLET PO (08:38)
[2022-12-04] MEDS: CARBIDOPA/LEVODOPA 12.5/50 MG TABLET 1 TABLET PO ×3 (08:43→15:04)
[2022-12-04 10:45] VITALS: BMI 10.0
--- NOTE | 2022-12-04 12:16 | PM.IMPN ---
Progress Note: A&P Assessment and Plan (1) Closed fracture of right clavicle: Qualifiers: Clavicle location: shaft Encounter type: initial encounter Fracture alignment: displaced Qualified Code(s): S42.021A - Displaced fracture of shaft of right clavicle, initial encounter for closed fracture Code(s): S42.001A - Fracture of unspecified part of right clavicle, initial encounter for closed fracture Status: Acute Assessment and Plan: Orthopedic consult rec conservative management, f/u clinic 1 month for repeat xrays PT/OT, fall precautions (2) Autonomic dysfunction: Code(s): G90.9 - Disorder of the autonomic nervous system, unspecified Status: Acute Assessment and Plan: Continue midodrine (3) Contusion of head: Qualifiers: Contusion of head detail: other part of head Encounter type: initial encounter Qualified Code(s): S00.83XA - Contusion of other part of head, initial encounter Code(s): S00.93XA - Contusion of unspecified part of head, initial encounter Status: Acute (4) Parkinsons disease: Code(s): G20 - Parkinson's disease Status: Acute Assessment and Plan: Continue home medications (5) Syncope: Code(s): R55 - Syncope and collapse Status: Acute Assessment and Plan: Echo from 11/27 showed an EF of 60-65% with grade 1 diastolic dysfunction and no significant valvular abnormalities Monitor telemetry, continue midodrine Plan Pending insurance authorization and approval for placement Subjective Date/time seen: 12/04/22 12:16 Interval history: Reports weakness which is not new Review of Systems Review of Systems: 12 point review of systems was assessed and was negative except as noted in the HPI Exam Narrative: General: No acute distress, alert and oriented HEENT: Atraumatic, normocephalic, mucous membranes moist CV: Regular rate and rhythm, S1, S2 Lungs: Clear to auscultation bilaterally, no rales or crackles noted, no wheezes, good air entry Abdomen: Soft, nontender, nondistended Extremities: Normal to inspection Skin: No rashes noted, no lesions or wounds seen Psych: Unable to assess, Objective Data Vital Signs Vital Signs: Vital Signs - 24 hr 12/03/22 14:18 12/03/22 21:50 12/03/22 22:14 Temperature 97.1 F L 97.7 F Pulse Rate 70 88 Respiratory Rate 19 18 Blood Pressure 123/68 87/51 L 102/72 Pulse Oximetry 95 96 12/04/22 06:00 Temperature 98.0 F Pulse Rate 72 Respiratory Rate 20 Blood Pressure 91/54 L Pulse Oximetry 96 Intake/Output Intake/Output: Intake & Output 12/01/22 12/02/22 12/03/22 12/04/22 23:59 23:59 23:59 23:59 Intake Total 960 / 960 970 / 970 720 / 720 240 / 240 Output Total 2900 / 2900 1500 / 1500 1450 / 1450 250 / 250 Balance -1940 / -1940 -530 / -530 -730 / -730 -10 / -10 Meds/Results Medications: Active Medications Generic Name Dose Route Start Last Admin Trade Name Freq PRN Reason Stop Dose Admin Hydrocodone Bitart/Acetaminophen 1 tab 11/27/22 00:13 11/28/22 20:33 Hydrocodone/Acetaminophen (*Crx) 10-325 Mg Tablet PO 1 tab Q4H PRN Administration Pain Rated 7-10 Aspirin 81 mg 12/03/22 09:00 12/04/22 08:37 Aspirin 81 Mg Enteric Tablet PO 81 mg QAM ADDY Administration Bisacodyl 10 mg 11/29/22 15:41 12/03/22 09:06 Bisacodyl 10 Mg Suppository RECTAL 10 mg QAM PRN Administration Constipation Carbidopa/Levodopa 1 tablet 11/27/22 00:20 12/03/22 20:07 Carbidopa/Levodopa 25/100 Mg Cr Tablet PO 1 tablet HS ADDY Administration Carbidopa/Levodopa 1 tablet 11/27/22 08:00 12/04/22 12:02 Carbidopa/Levodopa 25/100 Mg Tablet PO 1 tablet 0800,1200,1500 ADDY Administration Carbidopa/Levodopa 1 tablet 11/27/22 08:00 12/04/22 12:02 Carbidopa/Levodopa 12.5/50 Mg Tablet PO 1 tablet 0800,1200,1500 ADDY Administration Finasteride 5 mg 11/27/22 09:
[2022-12-04 14:00] VITALS: BP 109/59; PULSE 70; RESP 16; TEMP 36.3; O2SAT 96
[2022-12-04 19:57] VITALS: BP 114/65; PULSE 65; RESP 18; TEMP 36.5; O2SAT 95
[2022-12-04] MEDS: CARBIDOPA/LEVODOPA 25/100 MG CR TABLET 1 TABLET PO (20:07)
[2022-12-04 21:32] VITALS: O2SAT 95
[2022-12-05 05:15] VITALS: BP 105/65; PULSE 61; RESP 20; TEMP 36.7; O2SAT 100
[2022-12-05] MEDS: LINACLOTIDE 145 MCG CAPSULE 290 MCG PO (05:37)
[2022-12-05] MEDS: CARBIDOPA/LEVODOPA 12.5/50 MG TABLET 1 TABLET PO ×3 (09:29→17:12)
[2022-12-05] MEDS: FOLIC ACID 1 MG TABLET PO (09:30)
[2022-12-05] MEDS: MIDODRINE HCL 10 MG TABLET PO ×3 (09:30→17:12)
[2022-12-05] MEDS: CARBIDOPA/LEVODOPA 25/100 MG TABLET 1 TABLET PO ×3 (09:30→17:12)
[2022-12-05] MEDS: ROSUVASTATIN 10 MG TABLET PO (09:30)
[2022-12-05] MEDS: FINASTERIDE 5 MG TABLET PO (09:30)
[2022-12-05] MEDS: ASPIRIN 81 MG ENTERIC TABLET PO (09:30)
[2022-12-05] MEDS: polyethylene glycoL 3350 17 GM POWD.PACK PO (09:30)
--- NOTE | 2022-12-05 10:19 | PM.IMPN ---
Progress Note: A&P Assessment and Plan (1) Closed fracture of right clavicle: Qualifiers: Clavicle location: shaft Encounter type: initial encounter Fracture alignment: displaced Qualified Code(s): S42.021A - Displaced fracture of shaft of right clavicle, initial encounter for closed fracture Code(s): S42.001A - Fracture of unspecified part of right clavicle, initial encounter for closed fracture Status: Acute Assessment and Plan: Orthopedic consult rec conservative management, f/u in clinic in 1 month for repeat xrays PT/OT, fall precautions (2) Autonomic dysfunction: Code(s): G90.9 - Disorder of the autonomic nervous system, unspecified Status: Acute Assessment and Plan: Continue midodrine (3) Contusion of head: Qualifiers: Contusion of head detail: other part of head Encounter type: initial encounter Qualified Code(s): S00.83XA - Contusion of other part of head, initial encounter Code(s): S00.93XA - Contusion of unspecified part of head, initial encounter Status: Acute (4) Parkinsons disease: Code(s): G20 - Parkinson's disease Status: Acute Assessment and Plan: Continue home medications (5) Syncope: Code(s): R55 - Syncope and collapse Status: Acute Assessment and Plan: Echo from 11/27 showed an EF of 60-65% with grade 1 diastolic dysfunction and no significant valvular abnormalities Monitor telemetry, continue midodrine Plan Pending insurance authorization and approval for placement Subjective Date/time seen: 12/05/22 10:19 Interval history: Patient feels better today. Sitting in chair. Had a bath Review of Systems Review of Systems: 12 point review of systems was assessed and was negative except as noted in the HPI Exam Narrative: General: No acute distress, alert and oriented HEENT: Atraumatic, normocephalic, mucous membranes moist CV: Regular rate and rhythm, S1, S2 Lungs: Clear to auscultation bilaterally, no rales or crackles noted, no wheezes, good air entry Abdomen: Soft, nontender, nondistended Extremities: Normal to inspection Skin: No rashes noted, no lesions or wounds seen Psych: Unable to assess, Objective Data Vital Signs Vital Signs: Vital Signs - 24 hr 12/04/22 14:00 12/04/22 19:57 12/05/22 05:15 Temperature 97.4 F L 97.7 F 98.0 F Pulse Rate 70 65 61 Respiratory Rate 16 18 20 Blood Pressure 109/59 L 114/65 105/65 Pulse Oximetry 96 95 100 Oxygen Delivery 12/04/22 21:32 Temperature Pulse Rate Respiratory Rate Blood Pressure Pulse Oximetry 95 Oxygen Delivery Room Air Intake/Output Intake/Output: Intake & Output 12/02/22 12/03/22 12/04/22 12/05/22 23:59 23:59 23:59 23:59 Intake Total 970 / 970 720 / 720 920 / 920 Output Total 1500 / 1500 1450 / 1450 650 / 650 250 / 250 Balance -530 / -530 -730 / -730 270 / 270 -250 / -250 Meds/Results Medications: Active Medications Generic Name Dose Route Start Last Admin Trade Name Freq PRN Reason Stop Dose Admin Hydrocodone Bitart/Acetaminophen 1 tab 11/27/22 00:13 11/28/22 20:33 Hydrocodone/Acetaminophen (*Crx) 10-325 Mg Tablet PO 1 tab Q4H PRN Administration Pain Rated 7-10 Aspirin 81 mg 12/03/22 09:00 12/05/22 09:30 Aspirin 81 Mg Enteric Tablet PO 81 mg QAM ADDY Administration Bisacodyl 10 mg 11/29/22 15:41 12/03/22 09:06 Bisacodyl 10 Mg Suppository RECTAL 10 mg QAM PRN Administration Constipation Carbidopa/Levodopa 1 tablet 11/27/22 00:20 12/04/22 20:07 Carbidopa/Levodopa 25/100 Mg Cr Tablet PO 1 tablet HS ADDY Administration Carbidopa/Levodopa 1 tablet 11/27/22 08:00 12/05/22 09:30 Carbidopa/Levodopa 25/100 Mg Tablet PO 1 tablet 0800,1200,1500 ADDY Administration Carbidopa/Levodopa 1 tablet 11/27/22 08:00 12/05/22 09:29 Carbidopa/Levodopa 12.5/50 Mg Tablet PO 1 tablet 0800,12
[2022-12-05 13:29] VITALS: BP 108/59; PULSE 92; RESP 18; TEMP 36.5; O2SAT 94
[2022-12-05] MEDS: CARBIDOPA/LEVODOPA 25/100 MG CR TABLET 1 TABLET PO (19:48)
[2022-12-05 20:42] VITALS: BP 104/58; PULSE 69; RESP 14; TEMP 36.2; O2SAT 95
[2022-12-06 04:35] VITALS: BP 101/54; PULSE 63; RESP 16; TEMP 36.8; O2SAT 94
[2022-12-06] MEDS: LINACLOTIDE 145 MCG CAPSULE 290 MCG PO (06:32)
[2022-12-06] MEDS: MIDODRINE HCL 10 MG TABLET PO ×2 (08:46→12:48)
[2022-12-06] MEDS: CARBIDOPA/LEVODOPA 12.5/50 MG TABLET 1 TABLET PO ×2 (08:46→12:48)
[2022-12-06] MEDS: ROSUVASTATIN 10 MG TABLET PO (08:46)
[2022-12-06] MEDS: CARBIDOPA/LEVODOPA 25/100 MG TABLET 1 TABLET PO ×2 (08:46→12:48)
[2022-12-06] MEDS: FOLIC ACID 1 MG TABLET PO (08:46)
[2022-12-06] MEDS: ASPIRIN 81 MG ENTERIC TABLET PO (08:46)
[2022-12-06] MEDS: polyethylene glycoL 3350 17 GM POWD.PACK PO (08:46)
[2022-12-06] MEDS: FINASTERIDE 5 MG TABLET PO (08:46)
[2022-12-06 10:52] VITALS: BMI 10.0
--- NOTE | 2022-12-06 11:31 | PM.IMPN ---
Progress Note: A&P Assessment and Plan (1) Closed fracture of right clavicle: Qualifiers: Clavicle location: shaft Encounter type: initial encounter Fracture alignment: displaced Qualified Code(s): S42.021A - Displaced fracture of shaft of right clavicle, initial encounter for closed fracture Code(s): S42.001A - Fracture of unspecified part of right clavicle, initial encounter for closed fracture Status: Acute Assessment and Plan: Orthopedic consulted. They recommended conservative management, f/u in clinic in 1 month for repeat xrays PT/OT, fall precautions (2) Autonomic dysfunction: Code(s): G90.9 - Disorder of the autonomic nervous system, unspecified Status: Acute Assessment and Plan: Continue midodrine (3) Contusion of head: Qualifiers: Contusion of head detail: other part of head Encounter type: initial encounter Qualified Code(s): S00.83XA - Contusion of other part of head, initial encounter Code(s): S00.93XA - Contusion of unspecified part of head, initial encounter Status: Acute (4) Parkinsons disease: Code(s): G20 - Parkinson's disease Status: Acute Assessment and Plan: Continue home medications (5) Syncope: Code(s): R55 - Syncope and collapse Status: Acute Assessment and Plan: Echo from 11/27 showed an EF of 60-65% with grade 1 diastolic dysfunction and no significant valvular abnormalities Monitor telemetry, continue midodrine Plan Pending insurance authorization and approval for placement Subjective Date/time seen: 12/06/22 11:31 Interval history: Stable Review of Systems Review of Systems: 12 point review of systems was assessed and was negative except as noted in the HPI Exam Narrative: General: No acute distress, alert and oriented HEENT: Atraumatic, normocephalic, mucous membranes moist CV: Regular rate and rhythm, S1, S2 Lungs: Clear to auscultation bilaterally, no rales or crackles noted, no wheezes, good air entry Abdomen: Soft, nontender, nondistended Extremities: Normal to inspection Skin: No rashes noted, no lesions or wounds seen Psych: Unable to assess, Objective Data Vital Signs Vital Signs: Vital Signs - 24 hr 12/05/22 13:29 12/05/22 20:42 12/05/22 20:00 Temperature 97.7 F 97.1 F L Pulse Rate 92 69 Respiratory Rate 18 14 Blood Pressure 108/59 L 104/58 L Pulse Oximetry 94 95 Oxygen Delivery Room Air 12/06/22 04:35 12/06/22 08:20 Temperature 98.3 F Pulse Rate 63 Respiratory Rate 16 Blood Pressure 101/54 L Pulse Oximetry 94 Oxygen Delivery Room Air Intake/Output Intake/Output: Intake & Output 12/03/22 12/04/22 12/05/22 12/06/22 23:59 23:59 23:59 23:59 Intake Total 720 / 720 920 / 920 830 / 830 290 / 290 Output Total 1450 / 1450 650 / 650 1200 / 1200 1025 / 1025 Balance -730 / -730 270 / 270 -370 / -370 -735 / -735 Meds/Results Medications: Active Medications Generic Name Dose Route Start Last Admin Trade Name Freq PRN Reason Stop Dose Admin Hydrocodone Bitart/Acetaminophen 1 tab 11/27/22 00:13 11/28/22 20:33 Hydrocodone/Acetaminophen (*Crx) 10-325 Mg Tablet PO 1 tab Q4H PRN Administration Pain Rated 7-10 Aspirin 81 mg 12/03/22 09:00 12/06/22 08:46 Aspirin 81 Mg Enteric Tablet PO 81 mg QAM ADDY Administration Bisacodyl 10 mg 11/29/22 15:41 12/03/22 09:06 Bisacodyl 10 Mg Suppository RECTAL 10 mg QAM PRN Administration Constipation Carbidopa/Levodopa 1 tablet 11/27/22 00:20 12/05/22 19:48 Carbidopa/Levodopa 25/100 Mg Cr Tablet PO 1 tablet HS ADDY Administration Carbidopa/Levodopa 1 tablet 11/27/22 08:00 12/06/22 08:46 Carbidopa/Levodopa 25/100 Mg Tablet PO 1 tablet 0800,1200,1500 ADDY Administration Carbidopa/Levodopa 1 tablet 11/27/22 08:00 12/06/22 08:46 Carbidopa/Levodopa 12.5/50 Mg Tablet PO 1 tablet
--- NOTE | 2022-12-06 12:10 | PM.DS ---
DS: Admitting Diagnosis Discharge Date 12/06/22 Admitting Diagnosis clavicle fracture DS: Discharge Diagnosis Discharge Diagnosis (1) Closed fracture of right clavicle: Qualifiers: Clavicle location: shaft Encounter type: initial encounter Fracture alignment: displaced Qualified Code(s): S42.021A - Displaced fracture of shaft of right clavicle, initial encounter for closed fracture Code(s): S42.001A - Fracture of unspecified part of right clavicle, initial encounter for closed fracture Status: Acute (2) Parkinsons disease: Code(s): G20 - Parkinson's disease Status: Acute DS: Summary Hospital Course Hospital Course: 72-year-old male with a past medical history of Parkinson's disease is post bilateral deep brain stimulator, autonomic dysfunction with chronic orthostatic hypotension, BPH and osteoporosis who presented to the ER via EMS after having a fall and shoulder pain.? He had an x-ray performed in the ER which demonstrated a displaced and angulated overlapping clavicular fracture.? His chest x-ray was otherwise unremarkable.? Orthopedic surgery was consulted and they recommended conservative management. patient was seen by pt/Ot and they recommended rehab. he is being discharged to rehab in stable condition. Time Spent with Patient Time attestation: Total time spent providing and/or coordinating discharge services: Discharge Plan Discharge Attending physician on discharge: Jannette Spivey Consulting providers: Cesar Irizarry Discharging Clinician: Kenny Lyle Anticipated Discharge Date/Time: 12/06/22 12:09 Patient Disposition: Inpatient Rehab Facility Activity: as tolerated Diet: as tolerated and regular Discharge Instructions: Ortho instructions: Follow up in office ([facility]) in 4 weeks with Xrays. Please call for appointment. Apt scheduled for 12/29/22 @ 10:30a PT: Wear sling when out of bed. Stand Alone Forms: General Discharge Information Follow-up/Referrals: Santosh Rowe MD [Primary Care Provider] - Cesar Irizarry MD [Physician] - Discharge Medications: Continued aspirin [Adult Low Dose Aspirin] 81 mg tablet,delayed release (DR/EC) 81 mg PO BID Qty: 180 1RF carbidopa-levodopa 25-100 mg tablet 1.5 tablet PO TID Rx Instructions: 0800, 1200, 1500 Linzess 290 mcg capsule 290 mcg PO DAILY folic acid 1 mg tablet See Rx Instructions .ROUTE .COMPLEX Qty: 90 1RF Dose Instruction: TAKE 1 TABLET BY MOUTH DAILY Rx Instructions: TAKE 1 TABLET BY MOUTH DAILY tamsulosin 0.4 mg capsule See Rx Instructions .ROUTE .COMPLEX Qty: 90 0RF Dose Instruction: TAKE 1 CAPSULE BY MOUTH EVERY DAY AT BEDTIME Rx Instructions: TAKE 1 CAPSULE BY MOUTH EVERY DAY AT BEDTIME carbidopa-levodopa 50-200 mg tablet extended release 1 tablet PO HS Qty: 90 0RF midodrine 10 mg tablet 10 mg PO TID Qty: 270 0RF Rx Instructions: do not give last dose of day after 6PM or within 4 hrs of bedtime alendronate 70 mg tablet 70 mg PO WEEKLY 180 Days Qty: 26 1RF Rx Instructions: Tuesday rosuvastatin 10 mg tablet See Rx Instructions .ROUTE .COMPLEX Qty: 90 0RF Dose Instruction: TAKE 1 TABLET BY MOUTH DAILY Rx Instructions: TAKE 1 TABLET BY MOUTH DAILY finasteride 5 mg tablet See Rx Instructions .ROUTE .COMPLEX Qty: 90 1RF Dose Instruction: TAKE 1 TABLET BY MOUTH DAILY Rx Instructions: TAKE 1 TABLET BY MOUTH DAILY Date of admission: 11/29/22 15:53 Primary Care Provider: Santosh Rowe Admitting Provider: Baljit Wade Attending physician on admission: Kenny Lyle Condition: Stable
--- NOTE | 2022-12-06 17:24 | PC.NURSE ---
Environmental Specialist accessed patients chart after discharge to look up order time of discharge to document it on our daily floor census sheet in floor binder.
--- NOTE | 2022-12-22 09:17 | PM.IMPN ---
Progress Note: A&P Assessment and Plan (1) Closed fracture of right clavicle: Qualifiers: Clavicle location: shaft Encounter type: initial encounter Fracture alignment: displaced Qualified Code(s): S42.021A - Displaced fracture of shaft of right clavicle, initial encounter for closed fracture Code(s): S42.001A - Fracture of unspecified part of right clavicle, initial encounter for closed fracture Status: Acute Assessment and Plan: Orthopedic consult rec conservative management, f/u clinic 1 month for repeat xrays PT/OT, fall precautions (2) Autonomic dysfunction: Code(s): G90.9 - Disorder of the autonomic nervous system, unspecified Status: Acute Assessment and Plan: Continue midodrine (3) Contusion of head: Qualifiers: Contusion of head detail: other part of head Encounter type: initial encounter Qualified Code(s): S00.83XA - Contusion of other part of head, initial encounter Code(s): S00.93XA - Contusion of unspecified part of head, initial encounter Status: Acute (4) Parkinsons disease: Code(s): G20 - Parkinson's disease Status: Acute Assessment and Plan: Continue home medications (5) Syncope: Code(s): R55 - Syncope and collapse Status: Acute Assessment and Plan: Likely multifactorial, secondary to dysautonomia with Parkinson's disease and recurrent low blood pressure, check orthostatic blood pressure Echo from 11/27 showed an EF of 60-65% with grade 1 diastolic dysfunction and no significant valvular abnormalities Monitor telemetry, continue midodrine 11/30: hypotension recurring and worsened, give bolus and recheck symptoms, d/c flomax and observe 12/01: improving Plan Discharge to rehab when able DVT prophylaxis with SCDs GI prophylaxis not indicated Code status full code Subjective Date/time seen: 12/01/22 Interval history: No overnight events noted. No chest pain or shortness of breath. No nausea, vomiting or diarrhea. No fevers or chills. Review of Systems Review of Systems: 12 point review of systems was assessed and was negative except as noted in the HPI Exam Narrative: General: No acute distress, alert and oriented HEENT: Atraumatic, normocephalic, mucous membranes moist CV: Regular rate and rhythm, S1, S2 Lungs: Clear to auscultation bilaterally, no rales or crackles noted, no wheezes, good air entry Abdomen: Soft, nontender, nondistended Extremities: Normal to inspection Skin: No rashes noted, no lesions or wounds seen Psych: Unable to assess, Objective Data Meds/Results Radiology Results: ITS Impressions Head CT 11/26/22 14:23 IMPRESSION: No acute intracranial process. Cervical Spine CT 11/26/22 14:29 IMPRESSION: 1. Right clavicle fracture. 2. Severe spondylosis at C6-C7 and mild spondylosis at other levels. Shoulder X-Ray 11/26/22 14:38 IMPRESSION: No acute osseous finding in the right shoulder. ADDENDUM: 11/26/22 1555 Oblique fracture of the right clavicle at the junction of the middle and distal thirds, with one half shaft width inferior displacement, 41 degrees inferior angulation, and 3 cm overlap. Chest X-Ray 11/26/22 15:40 IMPRESSION: No acute cardiopulmonary process. Oblique, displaced, angulated and overlapping right clavicular fracture. Abdomen X-Ray 11/30/22 22:10 IMPRESSION: No radiographic evidence of obstruction or ileus.
== END 2022-12-06 14:32 | DRG 563 ==
LOC: ANHED 18:42 → ANH3MED 19:33
PROVIDERS: Student in an Organized Health Care Education/Training Program; Admitting Provider Chiropractor; Emergency Provider Preventive Medicine Aerospace Medicine; PCP Internal Medicine; Visit Provider Hospitalist
DX: S42.021A Displaced fracture of shaft of right clavicle, initial encounter for closed fracture (principal); S00.83XA Contusion of other part of head, initial encounter; W19.XXXA Unspecified fall, initial encounter; I95.1 Orthostatic hypotension; D50.9 Iron deficiency anemia, unspecified; G20 Parkinson's disease; N40.0 Benign prostatic hyperplasia without lower urinary tract symptoms; M81.0 Age-related osteoporosis without current pathological fracture; L30.9 Dermatitis, unspecified; K21.9 Gastro-esophageal reflux disease without esophagitis; E78.5 Hyperlipidemia, unspecified; G90.9 Disorder of the autonomic nervous system, unspecified; R29.6 Repeated falls; Z96.82 Presence of neurostimulator; Z86.718 Personal history of other venous thrombosis and embolism; Z90.49 Acquired absence of other specified parts of digestive tract
CPT/HCPCS: 36415; 70450; 71045; 72125; 73030; 74018; 80048; 80053; 81001; 83735; 85025; 85055; 93005; 93306; 96374; 97110; 97116; 97161; 97165; 97530; 97535; 99285; A4565; A9270; G0378; J2270; J7030

== ENCOUNTER 2023-03-16 08:23 | Emergency (ER) | payer MEDICARE, SELFPAY ==
--- NOTE | ~2023-03-16 | XR_ITS ---
XR knee LT 3V 03/16/2023 09:12 Indication: Left knee pain Procedure: 3 views left knee Comparison: No prior studies Findings: No fracture, subluxation or dislocation. No significant joint effusion. No foreign bodies. Impression: 1: No acute abnormality of the left knee. Reviewed, dictated and finalized at location B. NAILER Impression: 1: No acute abnormality of the left knee.
[2023-03-16 08:28] VITALS: BP 168/76; PULSE 57; RESP 16; TEMP 36.5; O2SAT 100
--- NOTE | 2023-03-16 08:47 | ED.GENADULT ---
HPI - General Adult General Chief complaint: Wound/Laceration <Tommy Valadez MD - Last Filed: 03/16/23 18:29> Stated complaint: Laceration to left knee <Tommy Valadez MD - Last Filed: 03/16/23 18:29> Time Seen by Provider: 03/16/23 08:40 <Tommy Valadez MD - Last Filed: 03/16/23 18:29> History of Present Illness HPI narrative: 72-year-old male presenting to the emergency department for evaluation for laceration to the left knee. Patient reports he had a ground level fall today landing on his left knee. Patient does have a small abrasion to the right knee as well. Patient initially presented to [facility] for treatment but they were concerned about the level of the bleeding so he was transported to the emergency department by EMS. Upon arrival to the emergency department bleeding is controlled. Patient denies any other pain or injury. Patient denies striking his head denies loss of consciousness. Patient does have history of Parkinson's and does have a deep brain stimulator in place. <Tommy Valadez MD - Last Filed: 03/16/23 18:29> Related Data Home medications: Home Medications Medication Instructions Recorded Confirmed linaclotide 290 mcg capsule 290 mcg PO DAILY 11/27/22 12/29/22 (Linzess) finasteride 5 mg tablet 5 mg PO DAILY 12/06/22 12/29/22 midodrine 10 mg tablet 10 mg PO TID 12/22/22 12/29/22 midodrine 5 mg tablet 5 mg PO TID 12/22/22 12/29/22 <Tommy Valadez MD - Last Filed: 03/16/23 18:29> Allergies/adverse reactions: Allergies Allergy/AdvReac Type Severity Reaction Status Date / Time No Known Allergies Allergy Verified 12/29/22 10:44 <Tommy Valadez MD - Last Filed: 03/16/23 18:29> Review of Systems Review of Systems: All systems reviewed & are unremarkable except as noted in HPI and below <Tommy Valadez MD - Last Filed: 03/16/23 18:29> PMFSH Past Medical History Medical History: Medical History Anemia Autonomic dysfunction BPH (benign prostatic hyperplasia) Chronic deep vein thrombosis Constipation by delayed colonic transit Deep vein thrombosis of left lower limb X2 Dupuytrens contracture Eczema GERD (gastroesophageal reflux disease) Hearing loss History of pelvic fracture Hyperlipidemia Iron deficiency anemia Kidney stones Multiple falls Orthostatic hypotension Osteoporosis Parkinsons disease Seizures Trigger finger of right hand Ventral hernia Vitamin B12 deficiency Vitamin D deficiency <Tommy Valadez MD - Last Filed: 03/16/23 18:29> Surgical History Surgical History: Surgical History History of appendectomy History of hemorrhoidectomy (12/29/21) Due to thrombosed hemorrhoid Hx of repair of right rotator cuff Hx of tonsillectomy S/P deep brain stimulator placement (~2011) <Tommy Valadez MD - Last Filed: 03/16/23 18:29> Family History Family History: Family History Mother Family history of Alzheimer's disease Sibling Family history of malignant neoplasm of breast in first degree relative two sisters with breast cancer Father Family history of hepatitis <Tommy Valadez MD - Last Filed: 03/16/23 18:29> Social History Social History: Social History Social History: Patient lives at home with his , Heydi, who is his surrogate MDM. His PCP is Dr. Rowe. He wishes to be listed as a Full Code. However he does not think he would want a G-tube. Smoking status: Never smoker Second hand tobacco smoke exposure: No Alcohol intake: never Alcohol use details: EXTREMILY RARE Substance use: never Substance use type: does not use Lack of Transportation: No Lack of Food: Never True Current Housing: I Have Housing Concerned About Future Housing: No Diff
[2023-03-16] MEDS: TETANUS,DIPHTHERIA,AC PERTUSSIS ADULT (0.5 ML) BOOSTRIX IM (11:09)
== END 2023-03-16 11:17 | disposition home or self-care (01) ==
PROVIDERS: Emergency Provider Emergency Medicine; PCP Internal Medicine
DX: S81.012A Laceration without foreign body, left knee, initial encounter (principal); E78.5 Hyperlipidemia, unspecified; G20.A1 Parkinson's disease without dyskinesia, without mention of fluctuations; Z23 Encounter for immunization; W18.30XA Fall on same level, unspecified, initial encounter
CPT/HCPCS: 12002; 73562; 90471; 90715; 99283

== ENCOUNTER 2024-05-25 22:47 | Emergency (ER) | payer MEDICARE, SELFPAY ==
--- NOTE | ~2024-05-25 | CT_ITS ---
History: Fall PROCEDURE: CT thoracic and lumbar spines without intravenous contrast. COMPARISON: None 4 TECHNIQUE: Multiple contiguous axial images of the thoracic and lumbar spines were performed without the adminis tration of intravenous contrast. DLP: 1928 mGy-cm FINDINGS: Preservation of the normal curvature of the thoracic and lumbar spines is identified. No acute compression fractures are present. No soft tissue abnormality is noted. No significant degenerative disease within the thoracic spine Degenerative disease within the lumbar spine at the level of L2/L3 is identified with osteophyte form ation (some are bridging) disc space narrowing, endplate changes and vacuum phenomena. Grade 1 retrolisthesis of L2 onto L3 is identified. Within the visualized lung vu patchy groundglass opacification is detected. Acute minimally displaced rib fractures are identified within the posterior lateral margin of the rig ht seventh eighth and ninth ribs for which dedicated imaging is suggested, as these were only minimal ly visualized. Adjacent mural thickening, likely hematoma at these levels. Punctate calcifications within the bilateral kidneys. Impression: No acute fracture within the thoracic or lumbar spine, as detailed above. Acute minimally displaced fractures of the posterior-lateral margin of the right seventh, eighth, and ninth ribs for which dedicated imaging is suggested as these were only minimally visualized. Nonobstructing renal calculi. Reviewed, dictated and finalized at location A. INTEGRATION ARCHITECT Impression: No acute fracture within the thoracic or lumbar spine, as detailed above. Acute minimally displaced fractures of the posterior-lateral margin of the righ t seventh, eighth, and ninth ribs for which dedicated imaging is suggested as t hese were only minimally visualized. Nonobstructing renal calculi.
--- NOTE | ~2024-05-25 | CT_ITS ---
History: Fall PROCEDURE: CT cervical spine without intravenous contrast. COMPARISON: 11/26/2022 TECHNIQUE: Multiple contiguous axial images of the cervical spine were performed without the administration of i ntravenous contrast. DLP: 351 mGy-cm FINDINGS: Preservation of the normal curvature of the cervical spine is identified. Decreased intravertebral disc height at the level of C6/C7, unchanged from prior. No acute fractures are present. The bilateral lung apices are unremarkable. No soft tissue abnormality is present. The airway is patent. Impression: Degenerative disease without acute fracture. Reviewed, dictated and finalized at location A. SITTER Impression: Degenerative disease without acute fracture.
--- NOTE | ~2024-05-25 | CT_ITS ---
EXAMINATION: CT chest abdomen pelvis w con DATE: 05/26/2024 02:56 INDICATION: Right rib tenderness. TECHNIQUE: Computed tomography (CT) of the chest, abdomen, and pelvis was performed with 100 mL Omnip aque 350 intravenous contrast. Automated exposure control and iterative reconstruction technique were employed. The dose-length product was 1035.04 mGy-cm. COMPARISON: CT abdomen and pelvis 02/08/2011 FINDINGS: CHEST CT: The lungs demonstrate mild atelectasis. There is smooth septal thickening in the lungs, consistent mi ld pulmonary edema. There is a trace right pleural effusion. Cardiomegaly is noted. No pericardial ef fusion. There is a moderate-sized sliding hiatal hernia. There are electronic devices in the anterior chest bilaterally with leads extending into the neck. There is an old fracture right clavicle with n onunion. There is an old healed fracture of right scapula. There are multiple old healed rib fracture s bilaterally. There are acute fractures of right fifth-10th ribs. There is an acute fracture of left seventh rib. There is an old healed fracture of the sternum. There is a compression fracture of T5, probably chronic. There is cervicothoracic levoscoliosis. ABDOMEN/PELVIS CT: The liver, gallbladder, spleen, pancreas, adrenal glands, and right kidney are normal. There is a 3 m m stone in left kidney. There is a right inguinal hernia containing nonobstructed small bowel. There is a left inguinal hernia containing fat. There are no dilated loops of bowel. There are changes of a ppendectomy. There are no pathologically enlarged lymph nodes. There is no free intraperitoneal fluid . There are chronic compression fractures of L1 and L2. There is moderate lumbar spondylosis. IMPRESSION: 1. Acute fractures of right fifth-10th ribs and left seventh rib. 2. T5 compression fracture, which may be chronic. 3. Mild pulmonary edema. 4. Moderate-sized sliding hiatal hernia. 5. Right inguinal hernia containing nonobstructed small bowel. Left inguinal hernia containing fat. Reviewed, dictated and finalized at location A. L CARRIER ASSOCIATE IMPRESSION: 1. Acute fractures of right fifth-10th ribs and left seventh rib. 2. T5 compression fracture, which may be chronic. 3. Mild pulmonary edema. 4. Moderate-sized sliding hiatal hernia. 5. Right inguinal hernia containing nonobstructed small bowel. Left inguinal he rnia containing fat.
--- NOTE | ~2024-05-25 | XR_ITS ---
EXAMINATION: XR chest 1V portable DATE: 05/26/2024 01:46 INDICATION: Rib fracture. TECHNIQUE: A single frontal view of the chest was obtained on 2 radiographs. COMPARISON: Chest single view 11/26/2022, chest CT 05/26/2024 FINDINGS: There are interstitial opacities in the mid and lower lung zones. No pleural effusion or pn eumothorax. Cardiomegaly is noted. There are fracture deformities of multiple ribs on either side. Th ere is an old fracture of right clavicle with nonunion. There is electronic devices in the anterior c hest wall on either side with electrodes coursing into the neck. IMPRESSION: 1. Interstitial opacities in the mid and lower lung zones, likely a combination of mild atelectasis a nd mild pulmonary edema. 2. Cardiomegaly. 3. Bilateral rib fracture deformities, some of which are acute and some of which are old. Reviewed, dictated and finalized at location A. UIT COURT JUDGE IMPRESSION: 1. Interstitial opacities in the mid and lower lung zones, likely a combination of mild atelectasis and mild pulmonary edema. 2. Cardiomegaly. 3. Bilateral rib fracture deformities, some of which are acute and some of whic h are old.
--- NOTE | ~2024-05-25 | CT_ITS ---
History: Trauma PROCEDURE: CT head without contrast. COMPARISON: 11/26/2022 TECHNIQUE: Axial imaging of the head performed from the skull base to the vertex without IV contrast. Sagittal a nd coronal reformations obtained. DLP: 681 mGy-cm FINDINGS: The ventricles are normal in size, shape and position. There is no mass, mass effect or midline shift. There is no abnormal extra-axial fluid collection or intracranial hemorrhage. Deep brain stimulators in good position. Visualized paranasal sinuses are clear. The mastoid air cells are well aerated. No acute displaced fractures within the overlying cranium. Impression: No acute intracranial hemorrhage or suspicious mass effect. Reviewed, dictated and finalized at location A. ANICAL ENGINEERING ADVISOR Impression: No acute intracranial hemorrhage or suspicious mass effect.
[2024-05-25 22:47] VITALS: PULSE 81; RESP 16; TEMP 36.7; O2SAT 98
[2024-05-25 22:55] VITALS: BP 135/90; PULSE 75; RESP 20; O2SAT 93
--- NOTE | 2024-05-25 22:59 | ECG_ITS ---
Test Date: 2024-05-25 23:01:51 Measurements Intervals [place] Rate: 73 P: 9 HI: 172 QRS: 6 QRSD: 81 T: 23 QT: 375 QTc: 415 Interpretive Statements PROBABLY SINUS RHYTHM (SIGNIFICANT BASELINE ARTIFACT) BASELINE ARTIFACT- I, II, III, AVR, AVL, AVF, V1-V6 ABNORMAL ECG No previous ECG available for comparison Electronically Signed On 05-26-2024 06:32:29 [employer] GOLD [employer] by Tad Donald D.O.
[2024-05-25 23:30] VITALS: BP 125/76; PULSE 71; RESP 16; O2SAT 94
--- OUTSIDE RECORDS SUMMARY | 2024-05-26 00:17 | XMS_ITS | Clinical Summary ---
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 before breakfast 0 8 Active glycerin suppository Insert 1 suppository into the rectum daily as needed for constipation Active finasteride (PROSCAR) 5 mg tablet Take 1 tablet (5 mg total) by mouth senior 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 database developer before breakfast 2 Active folic acid (FOLVITE) 1 mg tablet Take 1 tablet (1,000 mcg total) by mouth senior sql database developer before breakfast 2 Active rosuvastatin (CRESTOR) 10 mg tablet Take 1 tablet (10 mg total) by mouth daily 2 Active aspirin 81 mg enteric coated tablet Take 1 tablet (81 mg total) by mouth 2 (two) times a day Active midodrine (PROAMATINE) 10 mg tablet Take 1.5 tablets (15 mg total) by mouth 3 (three) times a day 4 Active carbidopa-levod opa (SINEMET) 25-100 mg per tablet 3 (three) times a day 1.5 tablets Active midodrine (PROAMATINE) 5 mg tablet Take 1 tablet (5 mg total) by mouth 3 (three) times a day 4 Active carbidopa-levod opa CR (SINEMET CR) 50-200 mg per CR tablet TAKE 1 TABLET BY MOUTH EVERY NIGHT 90 tablet 3 4 Active acetaminophen (TYLENOL) 325 mg tablet Take 2 tablets (650 mg total) by mouth every 6 (six) hours as needed for pain Active Hospital, Clinic, or Other Facility Administered Medication Ordered Dose Route Frequency Start Date End Date Status incobotulinumtoxinA (XEOMIN) 100 unit injection 200 UnitsIndications:Acqui red torsion dystonia,Salivary hypersecretion 200 Units IM Once for Clinic-Administer ed Medication 05/09/2024 Active Active Problems Problem Noted Date Diagnosed Date Neck pain 04/26/2024 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 Herbert Jansen is a 73 y.o. old male who has dystonia and sialorrhea secondary to Parkinson disease that has not responded to conservative measures and interferes with further progress in PT/OT and attainment and/or maintenance of motor skills. He had good benefit from his last set of injection which had just started to wear off. He is an appropriate candidate for botulinum injections. The risks (including but not limited to: bruising, hematoma, weakness, dysphagia, infection, and injection site pain, benefits, alternatives to chemodenervation were explained. A signed consent was obtained. The consenting adult understands that all general neurological issues are to be managed by the referring neurologist or physician. Botulinum toxin injected as follows with EMG Guidance (25 Units wasted): Xeomin 175 U (amount wasted: 25 U) injected into the following muscles using a 1 cc dilution: 10U Lumricales II (right) 5U Interossei Dorsales I (right) 10U Interossei Dorsales II (right) 5U Interossei Dorsales III (right) 5U Interossei Dorsales IV (right) 40U Flexor Digitorum Superficialis (right) 30U Parotid Gland (left) 20U Submandibular Gland (left) 30U Parotid Gland (right) 20U Submandibular Gland (right) He will see OT for the hand. Dann Schumacher MD Assessment & Plan (10/26/2023 4:42 PM CDT): Herbert Jansen is a 73 y.o. old male who has dystonia and sialorrhea secondary to Parkinson disease that has not responded to conservative measures and interferes with further progress in PT/OT and attainment and/or maintenance of motor skills. He had good benefit from his last set of injection which had just started to wear off. He is an appropriate candidate for botulinum injections. The risks (including but not limited to: bruising, hematoma, weakness, dysphagia, infection, and injection site pain, benefits, alternatives to chemodenervation were explained. A signed consent was obtained. The consenting adult understands that all general neurological issues are to be managed by the referring neurologist or physician. Botulinum toxin injected as follows with EMG Guidance (25 Units wasted): Xeomin 175 U (amount wasted: 25 U) injected into the following muscles using a 1 cc dilution: 10U Lumricales II (right) 5U Interossei Dorsales I (right) 10U Interossei Dorsales II (right) 5U Interossei Dorsales III (right) 5U Interossei Dorsales IV (right) 40U Flexor Digitorum Superficialis (right) 30U Parotid Gland (left) 20U Submandibular Gland (left) 30U Parotid Gland (right) 20U Submandibular Gland (right) He will see OT for the hand. Dann Schumacher MD Assessment & Plan (07/20/2023 3:55 PM CDT): Images from the original note were not included. Herbert Jansen is a 73 y.o. old male who has dystonia and sialorrhea secondary to Parkinson disease that has not responded to conservative measures and interferes with further progress in PT/OT and attainment and/or maintenance of motor skills. He is an appropriate candidate for botulinum injections. The risks (including but not limited to: bruising, hematoma, weakness, dysphagia, infection, and injection site pain, benefits, alternatives to chemodenervation were explained. A signed consent was obtained. The consenting adult understands that all general neurological issues are to be managed by the referring neurologist or physician. Botulinum toxin injected as follows with EMG Guidance (25 Units wasted): Xeomin 175 U (amount wasted: 25 U) injected into the following muscles using a 1 cc dilution: 10U Lumricales II (right) 5U Interossei Dorsales I (right) 10U Interossei Dorsales II (right) 5U Interossei Dorsales III (right) 5U Interossei Dorsales IV (right) 40U Flexor Digitorum Superficialis (right) 30U Parotid Gland (left) 20U Submandibular Gland (left) 30U Parotid Gland (right) 20U Submandibular Gland (right) He will see OT for the hand. 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 We will need 100 units Botox for this. S/P deep brain stimulator placement 12/25/2021 Assessment & Plan (05/04/2023 3:06 PM BACK JOINER): Mr. Jansen presented in the med ON state for further programming. He continued to have good benefit overall from DBS therapy. He was seen by Dr Schumacher today as well. He had more sialorrhea and will be starting botox. He reduced his c/L doses and stopped taking Entacapone without any worsening motor benefit. Today he presented in a w/c , he had bradykinesia, rigidity, he was able to stand up and take few steps. We interrogated his dbs settings and opted not to make any changes today. Reviewed strict fall and swallow precautions. Recommendations: Keep dbs on at all times Medications and other recommendations per Dr Schumacher today Strict fall and swallow precaution always use a walker Push fluids, wear compression stockings Return in 6 months for follow up Assessment & Plan (11/22/2022 12:36 PM CDT): Mr. Jansen presented in the med ON state for further programming. He continued to have good benefit overall from DBS therapy. He was most bothered by dizziness and vertigo. He was being followed by his PMD for this and on Midodrine which was increased few months ago. He was not drinking as much as he should , we discussed importance of pushing fluids , taking more sodium and he had compression stockings he was not using, encouraged him to start using it more. For the vertigo suggested he follow up with ENT for it as well. He had more sialorrhea and was considering botox, they will discuss possibly starting atropine drops in the mean time with their pmd. He reduced his c/L doses and stopped taking Entacapone without any worsening motor benefit. He was also having lot more neck pain, he was interested in starting PT, will send rx. Today he presented in a w/c , he had bradykinesia, rigidity, he was able to stand up and take few steps. We interrogated his dbs settings and opted not to make any changes today. Reviewed strict fall and swallow precautions. Recommendations: Keep dbs on at all times Continue to monitor OBP Start Pt, rx sent Follow up with ent for vertigo and with pmd as planned Strict fall precaution always use a walker Push fluids, wear compression stockings Return as scheduled in March or sooner if needed Assessment & Plan (07/21/2022 10:50 AM CDT): Mr. Jansen presented in the med ON state for further programming. He continued to have good benefit overall from DBS therapy, but had more freezing of gait and shuffling. He had tried increasing his doses of levodopa without much benefit. He felt the freezing has been worse in the last 4-6 weeks. We interrogated his dbs and opted to try to switch him to 0.5 th increase in his settings to help with the freezing of gait for left dbs. We tried for the same for the right dbs but he felt it was little too strong. So we opted to not make any change to his right dbs and only changed the left dbs. He can return to his previous setting if needed as well. Printed information given on how to switch between settings. He tolerated the changes without persistent side effects. He has been having more light headedness , encouraged to start checking OBP. He was also missing doses in between, discussed reducing his meds to 1.5 tabs since he was also have more head bobbing and to take meds on time. Start Pt, Ot and ST will send rx. Will obtain UA in clinic to rule out any infection. Strict fall precautions Recommendations: 1. Check BP 30 min after levodopa dose sitting, then stand up and wait for 2 min and check it again 2. Ua in clinic today 3. Start Pt, Ot and ST 4. For left dbs go back to group A incase of delayed side effects 5. Strict fall precaution always use a walker 6. C.L 1.5 tabs every 3 hours , make sure not to skip doses Pseudobulbar affect 11/26/2019 Orthostasis 02/09/2019 Other chest pain 09/26/2018 Abnormal nuclear stress test 09/26/2018 DVT (deep venous thrombosis) ([facility]) 9 Overview (11/16/2022): Last Assessment & Plan: Chronic, 2 episodes. Most recent DVT in March, in right leg. Was started on Xarelto, medically compliant. INR 1.9 today. - Continue home Xarelto Depressive disorder due to separate medical cond ition 06/20/2018 Status post deep brain stimulator placement 01/18 Assessment & Plan (06/04/2022 5:51 PM BACK JOINER): Mr. Jansen presented in the med ON state for further programming. He continued to have good benefit overall from DBS therapy, but had more freezing of gait and shuffling. He had reduced his doses of c/L and entacapone to help with the dyskinesia and fatigue/drowsiness which was very bothersome to him. He is now on Amantadine as well. These have helped with the dyskinesia and fatigue however he had more freezing of gait and bradykinesia. We interrogated his dbs and opted to try a 0.5 th increase in his settings to compensate for the lower medicine. He did okay with the change but they were travelling soon and did not want to be on the new setting yet . We opted to leave the new setting in group B as a back up at 2.65 he can try at home for both dbs. We opted to leave him at his current setting in group A at 2.60. He tolerated the changes without persistent side effects. Encouraged him to exercise and start PT but he has declined for now. Recommendations: 1. Keep DBS on at all times 2. May switch to group B to see if have better benefit 3. Strict fall and swallow precautions 4. Start C/L ER 50/200 1 tab at bedtime 5. Consider PT and exercise as tolerated 6. Return as scheduled for following appts Assessment & Plan (11/18/2021 12:07 PM CDT): Mr. Jansen presented in the med ON state for further programming. He continued to have good benefit overall from DBS therapy, but continued to have worsening progression in his balance. Today on exam, he ambulated with his cane. He balance was unsteady and he took short steps. He had bradykinesia, reduced dexterity, stopped posture, rigidity and postural instability. He had dyskinesia in his head. His speech was dysarthric and his responses were delayed. We discussed starting [facility] program , sent referral for PT, OT and ST. He had reduced levodopa by 1 1/2 tab with each dose and also reduced Entacapone to 1/2 tab with each dose of levodopa. He felt this worked better for him with reduced drowsiness and less ortho stasis. His Midodrine was increased to 2 tabs as well which he found helpful. We interrogated his DBS and his left ipg was found to be at 2.71 and the right at 2.79. We will send referral to Dr Montiel's office for bilateral ipg replacement in 4-6 weeks . We opted not to make any change to his settings today. Reviewed strict fall precautions. Overall he remained pleased with benefit from DBS therapy. We discussed the pros and cons of the [employer]ista and [employer] deep brain systems including battery size, battery longevity, unilateral vs. bilateral, rechargeable vs. primary cell, remote programming features, and programming features. We decided to proceed using the Minter[employer]ronic Activa SC implantable pulse generator (IPG). Mr. Herbert Jansen , his and the DBS team preferred the chosen device due to progression of the disease. Mr. Herbert Jansen was not a good candidate for rechargeable DBS therapy due to cognitive decline. Recommendations: 1. Keep DBS on at all times 2. Start PT OT and ST after the current home therapy is completed.. rx provided 3. Strict fall and swallow precautions 4. Will send referral to Dr Montiel for bilateral IPG replacement in 4-6 weeks 6. Continue to exercise and stay active 7. Return as scheduled for DBS in 6 months Assessment & Plan (06/02/2021 10:06 AM BACK JOINER): Mr. Jansen presented in the [facility] [place] state for further programming. He continued to have good benefit overall from DBS therapy, but continued to have worsening progression in his balance. Today on exam, he ambulated with his walker. He balance was unsteady and he took short steps. He had bradykinesia, reduced dexterity, stopped posture, rigidity and postural instability. He had dyskinesia in his head. His speech was dysarthric and his responses were delayed. We discussed starting [facility] program , sent referral and also gave him list of local therapists. We interrogated his DBS and opted not to make any change to his bilateral settings. Recommened melatonin 5 mg for night time sleep and caffeine during the day for drowsiness during the day. Overall he remained pleased with benefit from DBS therapy. Recommendations: 1. Keep DBS on at all times 2. Start PT and ST- orders provided today 3. Strict fall and swallow precautions 4. Melatonin 5 mg 30 min - 1 hour before bedtime 5. Increase daytime caffeine intake to 2-3 cups a day 6. Continue to exercise and stay active 7. Return as scheduled for DBS in 6 months Assessment & Plan (09/16/2020 3:21 PM CDT): Mr. Jansen presented in the med ON state for further programming. He continued to have good benefit overall from DBS therapy, but continued to have worsening progression in his balance. Today on exam, he ambulated with a cane. He balance was unsteady and he took short steps. He had bradykinesia, reduced dexterity and rigidity. He did have some head movement that appeared to be dyskinesia. His speech was dysarthric and his responses were delayed. His DBS was interrogated and his left and right IPG's were 2.89. We did not make any changes to his stimulation today. He agreed to PT and ST and increase his water intake for lightheadedness. Recommendations: 1. Keep DBS on at all times 2. Start PT and ST- orders provided today 3. Fall precaution 4. Increase water intake to 64 oz a day to improve lightheadedness and dizziness. If he is hydrated with no improvement in lightheadedness may consider increasing midodrine 5. Follow up in 3 months for dbs appt Assessment & Plan (02/09/2019 10:53 AM CDT): Mr. Jansen had mild motor fluctuation and was most bothered by dizziness, especially after meals and daytime fatigue. He did reasonably well in am, prior to levodopa and thought that he would tolerate a slight decrease of dosage to see if fatigue and dizziness improved any. He planned to discuss this with Myriam later today as well. Fall precautions reviewed and he was encouraged to continue CAMERON PT study but to inform them of dizziness. He was interested in ST for diction and volume (asked Mas to send order to our ST department). Overall, he remained pleased with his response to DBS therapy. Recommendations: 1. Leave DBS on at all times. May use either setting but log response 2. Continue levodopa and may try slight decrease to see if fatigue, dizziness (especially after meals) improves Florinef led to ankle edema and he has a hx of DVTX2 3. Same entacapone. 4. Continue CAMERON exercise study. 5. WUST Strict fall precuations. Assessment & Plan (06/20/2018 1:11 PM BACK JOINER): Mr. Jansen struggled with sleep from nocturia and REM behavior. He also had worsened gait stability. He had dyskinesia and when he did, his gait was even more unstable. He would not benefit from lower DBS settings due to his already poor symptom control, but higher settings caused worsening dyskinesia and imbalance. No changes were made in DBS today and he will see Myriam after this visit to address the sleeping and depression. He was encouraged to maintain fall precautions and regular exercise. He is in Dr. Luis's PT study and was provided with the walking study information today. 1. Leave DBS on at all times. 2. Medications per Myriam today 3. Regular exercise and strict fall precautions. Parkinson disease 01/11/2018 Assessment & Plan (05/04/2023 11:28 AM BACK JOINER): Overall, he had progression of parkinsonism and was unable to increase levodopa due to orthostasis as well as head bobbing dyskinesias. He already had bilateral STN DBS. He was bothered by drooling. At this point he is a good candidate for Myobloc for sialorrhea. I would start with 2500 units. I would not recommend changing levodopa as he just changed it. He would be a good candidate for the sq levodopa pump. He will continue therapies. Assessment & Plan (01/26/2022 10:12 AM CDT): 71 YO with stage 4 PD who presents today with worsening symptoms. His head bobbing seen today appears to be most consistent with dyskinesias. He also continues to have freezing and side effects of sleepiness from his medications. Patient's progressive PD and limiting side effects has made it difficult to manage his symptoms. In the past, amantadine was deferred due to concerns about constipation but today, he reports having a good bowel regimen that has made constipation less of a concern. We will plan to try amantadine to see if it can help with his head bobbing. Plan to keep the rest of his sinemet and entacapone the same. Plan: -Amantadine 1 tab daily for 7 days --> 1 tab BID -all us in 3 weeks to let us know how you are doing. Stop at 1 tab twice a day if it is helping with your symptoms. -encouraged exercise 30 min a day for 5 days a week - referral to speech therapy for dysphagia and difficulty handling secretions. - cont same dose carbidopa-levodopa and entacapone with each dose. Assessment & Plan (11/26/2019 3:43 PM CDT): His PD was progressing but he also had bothersome orthostasis and constipation that were likely impacting his PD function. At this time we will not change levodopa, since he had bothersome dyskinesia. I was not excited to start amantadine as he was very bothered by constipation (it may help sialorrhea though). As such he will continue on the current dose of levodopa and then start aggressive PT. He is home bound and may need home health for PT but we will try outpatient first. He had pseudobulbar affect that was noticeable to him but not a big enough problem to treat. I would consider Nudexta vs. an SSRI in the future. He will drink 64 oz of water a day. He will exercise. Myriam to reevaluate in 4 months and plan for DBS evaluation at that time. They know he may be optimized for his DBS. Assessment & Plan (02/09/2019 10:38 AM CDT): He has stage 3 PD today, ON meds, with excellent response to STN DBS and levodopa with no current wearing off and minimal, nonbothersome dyskinesia. His balance and walking have continued to be a bit of an issue and he is working with Mark Luis for a walking study but given the imbalance, he should start PT soon. He has walkers and canes at home but generally only uses the cane. He is bothered by urgency and frequency of urination but does not wish to try a bladder medicine. He may continue magnesium for leg cramping and melatonin for general insomnia. Clonazepam in the past caused more confusion. We could consider mirtazapine (mood is also a bit low), Myrbetriq or trospium for bladder, or CR carbi/levo at bedtime. He still has some now bothersome lightheadedness. He stopped fludrocort on his own because his ankles were swollen and he developed a DVT. He was in the ER in the past year with charleyhorse of his chest but chemical stress test and cardiac cath were negative. Since he has no history of CAD or CT, we will start midodrine. For his fatigue, he should add caffeine which may also help with lightheadedness. He should continue Linzess and glycerine suppositories for constipation. Recs 1. Start midodrine. Check BPs and report in 10 days. 2. Same carbi/levo, same entacapone, same linzess. 3. Continue melatonin. 4. May use condom catheter when travelling. 5. Resume PT when BPs are better controlled. 6. Continue caffeine for daytime sleepiness and low BPs. Assessment & Plan (10/04/2018 5:51 PM CDT): He has stage 3 PD today, ON meds, with excellent response to STN DBS and levodopa with no current wearing off and minimal, nonbothersome dyskinesia. His balance and walking have continued to be a bit of an issue and he is working with Mark Luis for a walking study but given the imbalance, he should start PT soon. He has walkers and canes at home but generally doesn't use them. He is bothered by nighttime awakening. The reasons behind this seem to be a mixture of physical discomfort/rigidity, insomnia, restlessness in his legs and need to urinate. We discussed options for treatment today and will first try adding a dose of 1 tab in the middle of the night to see if fixing the physical discomfort and possible leg restless helps. He may continue magnesium for leg cramping and melatonin for general insomnia. Clonazepam in the past caused more confusion. We could consider mirtazapine (mood is also a bit low), Myrbetriq or tamsulosin (but would HAVE to watch BPs with tamsulosin) for bladder, or CR carbi/levo at bedtime. He still has some lightheadedness and did not get orthostatics for us after last visit. Furthermore, he stopped fludrocortisone on his own because he has history of DVT and felt fludrocortisone could increase his chance for another DVT. He was in the ER recently with charleyhorse of his chest but chemical stress test and cardiac cath were negative. Since he has no history of CAD or CT, we could consider midodrine if his BPs are low. For his fatigue, he should add caffeine which may also help with lightheadedness. His PMD will draw labs Tuesday and I asked to be sure UA, TSH and B12 are checked. He has constipation and should add either Miralax or a stool softener. Recs 1. May try 1 tab of levodopa in middle of night. 2. Could consider mirtazapine for mood and sleep after PMD draws labs and I see BPs. 3. Could consider tamsulosin for bladder but ONLY after we normalize BPs. 4. Add miralax/stool softener for constipation and hard stools. Try caffeine pills at breakfast and lunch for fatigue. 5. Check BPs sitting and standing and report in one week. Assessment & Plan (06/20/2018 1:04 PM BACK JOINER): He has stage 3 PD today, ON meds, with excellent response to STN DBS and levodopa with no current wearing off, though in the afternoons, he has more dyskinesia. His balance and walking have continued to be a bit of an issue though he hasn't fallen. He has walkers and canes at home but generally doesn't use them. He is bothered by nighttime awakening. The reasons behind this seem to be a mixture of physical discomfort/rigidity, insomnia, restlessness in his legs and need to urinate. We discussed options for treatment today and will first try increasing the bedtime dose of levodopa and adding a dose of 1 tab in the middle of the night to see if fixing the physical discomfort and possible leg restless helps. We discussed proper sleep hygiene. He may try magnesium for leg cramping and melatonin for general insomnia. We could consider mirtazapine (mood is also a bit low), Myrbetriq for bladder, or CR carbi/levo at bedtime. He still has some lightheadedness on 0.3 mg of fludrocortisone and we will ask him to check orthostatics. He is getting ready to start PT with Mark and I am hopeful that will help with his rigidity. Clonazepam in the past caused more confusion. Recs 1. Check Bps first sitting then standing and report in. Continue extra salt and fluids. May need midodrine. 2. Increase bedtime levodopa to 2 tabs, add middle of the night dose of 1 tab. Could consider long acting levodopa. 3. Could try 10 mg of magnesium, could try 5-10 mg of melatonin. 4. Could consider adding mirtazapine for mood and sleep. 5. Could consider adding Myrbetriq or trospium for bladder. 6. Start PT study with Mark. Start APDA youtube exercises. Slow rate of speech 01/06/2017 Diplopia 12/08/2015 Nuclear sclerotic cataract 12/08/2015 Abnormal rapid eye movement sleep 10/30/2015 Chronic constipation 10/30/2015 Persistent insomnia 10/30/2015 Encounters Date Type Department Care Team Description 05/21/2024 1:00 PM BACK JOINER Therapy [facility] [address] [place] [phone] Caden Green, PT Cervicalgia (Primary Dx) 05/21/2024 Plan of Care Documentation [facility] Therapy [address] [place] [phone] 04/26/2024 12:54 PM BACK JOINER - 04/26/2024 11:59 PM BACK JOINER Hospital Encounter [facility] [address] [place] [address] Maile Watters MD Cervicalgia (Primary Dx); Neck pain; Acquired torsion dystonia; Status post deep brain stimulator placement; Parkinson's disease with dyskinesia and fluctuating manifestations (HCC) Discharge Disposition: Discharge to home or self care 04/02/2024 Orders Only [facility] [address] [place] [address] Santosh Rowe MD Cervicalgia (Primary Dx) from Last 3 Months Immunizations Name Administration Dates Next Due COVID-19 mRNA (US Biologic) 0.3 m L (30 mcg) vaccine (12 years and up) 01/09/2023 Influenza, Quadrivalent, Hig h Dose, Preservative Free, Intrr 02/05/2021,03/04/2020 Influenza, Trivalent, Adjuva nted, Intramuscular 05/03/2019 Influenza, Trivalent, High D ose, Split, Preservative Free, Intramuscular 02/09/2018,01/28/2018,01/28/2015 Pneumococcal Conjugate PCV 13 07/04/2019 Pneumococcal Polysaccharide PPV23 02/05/2021 ZOSTER Recombinant 09/26/2019,07/04/2019 Surgical History Surgery Date Site/Laterality Comments APPENDECTOMY Appendectomy ROTATOR CUFF REPAIR Rotator cuff repair MAGY HOLE W/ STEREOTACTIC INSERTION OF DBS LEADS / INTRAOP MICROELECTRODE RECORDING 04/18/2017 - 04/17/2018 HAND SURGERY Medical History Medical History Date Comments Gastroesophageal reflux disease GERD Peptic ulcer PEPTIC ULCER DIS EASE Hx Other Medical HEART OR LUNG D ISEASE Depression Depression Hx Other Medical Hepatitis Hypertension Hypertension Diabetes mellitus (HCC) Diabetes Parkinson disease (HCC) Family History Medical History Relation Name Comments Dementia Mother Family history of dementia - (Added by TW Conv) Relation Name Status Comments Mother Social History Tobacco Use Types Packs/Day Years Used Date Smoking Tobacco: Never Smokeless Tobacco: Never Tobacco Cessation:Counseling Given: Not Answered Alcohol Use Standard Drinks/Week Comments Yes 1 (1 standard drink = 0.6 oz pur e alcohol) every other week AUDIT-C Answer Date Recorded Q1: How often do you have a drink containing alc ohol? Never 04/26/2024 Average Number of Drinks Not on file 025 Frequency of Binge Drinking Not on file 12/2024 Sex and Gender Information Value Date Recorded Sex Assigned at Not on file Legal Sex Male 2:36 AM BACK JOINER Gender Identity Male 12/09/2020 11:57 AM CDT Sexual Orientation Not on file Obstetrics History Last Filed Vital Signs Vital Sign Reading Time Taken Comments Blood Pressure 150/71 04/26/2024 1:07 PM BACK JOINER Pulse 62 04/26/2024 1:07 PM BACK JOINER Temperature 36.4 C (97.5 F) 04/26/2024 1:07 PM BACK JOINER Respiratory Rate 10 04/26/2024 1:07 PM BACK JOINER Oxygen Saturation 98% 04/26/2024 1:07 PM BACK JOINER Inhaled Oxygen Concentration - - Weight 84.4 kg (186 lb) 04/26/2024 1:07 PM BACK JOINER Height 176.5 cm (5' 9.5 ) 04/26/2024 1:07 PM BACK JOINER Body Mass Index 27.07 04/26/2024 1:07 PM BACK JOINER Plan of Treatment Health Maintenance Due Date Last Done Comments Colon Cancer Screening-Colonoscopy 1950 Hepatitis C Screening 1950 DTaP/Tdap/Td Vaccine (1 - Tdap) 1959 Hepatitis B Screening 1966 Well Visit 65+ 2013 Fall Risk Assessment 12/25/2022 12/25/2021 Covid-19 Vaccine (2023-2 5 season) 2023 01/09/2023, 08/09/2022, 02/15/2022, Additional history exists Influenza Vaccine (#1) 2023 , 03/04/2020, 05/03/2019, Additional history exists Depression Screening 05/04/2024 05/04/2023 Zoster Vaccine Completed 09/26/2019, 07/04/2019 Pneumococcal vaccine 65+ Completed 02/05/2021, 06/16 Goals Goal Patient Goal Type Associated Problems Recent Progress Patient-Stated? Author ACO CC Goal - Level of ADL/IADL assistance will meet patient's needs ACO Care Management Denia Marinelli RN Note: Problem: Inadequate assistance to manage ADL's/IADL's Interventions: - Assess current level of functioning and needs with patient/family. - Assess appropriateness for Home Health. Contact PCP office to start referral process if skilled need is present. - Encourage independent ADL's as appropriate. Ensure patient has the appropriate tools at home to be as independent as possible. - Refer to SW if appropriate and patient is agreeable. Medical Devices Implanted Type Area Hospital Receptionist Device Identifier Shelf Expiration Date Model / Serial / Lot Medtronic Stn Dbs Model 3389 With Activa Sc Bilateral: Brain Description:Mr. Inderjit osorio nt bilateral STN DBS electrode placement (stage I) surgery on November 23, 2011 and implantation of pulse generators (stage II) surgery the following week per Dr. Montiel. Medtronic Inc Stimulator Activa 82197 - [id number] - [id number] Implanted:Qty: 1 on 12/25/2021 by Yusuf Montiel MD at [facility] Right: Chest Medtronic Inc 01/13/2023 33811 / [id number] / Medtronic Inc Stimulator Activa 74693 - [id number] - [id number] Implanted:Qty: 1 on 12/25/2021 by Yusuf Montiel MD at [facility] Left: Chest Medtronic Inc 11/29/2022 04782 / [id number] / Explanted Type Area Hospital Receptionist Device Identifier Shelf Expiration Date Model / Serial / Lot Medtronic Inc Stimulator Activa 06233 - [id number] - [id number] Explanted:Qty: 1 on 12/25/2021 at [facility] Left: Chest Medtronic Inc 18955 / [id number] / Medtronic Inc Stimulator Activa 51210 - [id number] - [id number] Explanted:Qty: 1 on 12/25/2021 at [facility] Right: Chest Medtronic Inc 84312 / [id number] / Insurance T MEDICARE [facility] MEDICARE T MEDICARE Advance Directives For more information, please contact: [phone] Documents on File Type Date Recorded Patient Motorman/Woman Expl anation ADVANCE DIRECTIVE 11/16/2022 10:11 AM POWER OF TEST ENGINEERING INTERN-MEDICAL Care Teams Health Program Director Relationship Specialty Start Date End Date Santosh Rowe MD [address] [place] [address] PCP - General 10/30/12 Amado Gonzalez MD [address] [place] [address] Referring Physician Orthopedic Surgery 10/12/17 Mark Luis, DPT [address] [facility] [address] [place] [address] Physical Therapist Physical Therapy 10/14/17
--- OUTSIDE RECORDS SUMMARY | 2024-05-26 00:17 | XMS_ITS | Referral Summary ---
Author Organization [facility] Address [address] [place] [address] Care Team Providers Care Senior Ui Ux Designer Name Role Phone Santosh Rowe MD Primary Care Provider [phone] Amado Gonzalez MD Unavailable [phone] Mark Luis DPT Unavailable [phone] Encounters Date Type Department Care Team Description 05/21/2024 Plan of Care Documentation [facility] Therapy [address] [place] [phone] 05/21/2024 1:00 PM QUARRY SUPERVISOR Therapy [facility] [address] [place] [address] [address] [place] [address] Caden Green PT Cervicalgia (Primary Dx) 04/26/2024 12:54 PM QUARRY SUPERVISOR - 04/26/2024 11:59 PM QUARRY SUPERVISOR Hospital Encounter [facility] [address] [facility] [place] [address] Maile Watters MD Cervicalgia (Primary Dx); Neck pain; Acquired torsion dystonia; Status post deep brain stimulator placement; Parkinson's disease with dyskinesia and fluctuating manifestations (HCC) Discharge Disposition: Discharge to home or self care 04/02/2024 Orders Only [facility] [address] [facility] [address] [place] [address] Santosh Rowe MD Cervicalgia (Primary Dx) from Last 3 Months Allergies No known active allergies Medications alendronate (FOSAMAX) 70 mg tablet Take 1 tablet (70 mg total) by mouth every 7 days 8 Active LINZESS 290 mcg capsule Take 1 capsule (290 mcg total) by mouth assistant gm of content & delivery before breakfast 0 8 Active glycerin suppository Insert 1 suppository into the rectum daily as needed for constipation Active finasteride (PROSCAR) 5 mg tablet Take 1 tablet (5 mg total) by mouth assistant gm of content & delivery before breakfast 2 Active folic acid (FOLVITE) 1 mg tablet Take 1 tablet (1,000 mcg total) by mouth assistant gm of content & delivery before breakfast 2 Active rosuvastatin (CRESTOR) 10 [...] 05/04/2023 Assessment & Plan (05/04/2023 11:31 AM QUARRY SUPERVISOR): 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 We will need 100 units Botox for this. S/P deep brain stimulator placement 12/25/2021 Assessment & Plan (05/04/2023 3:06 PM QUARRY SUPERVISOR): Mr. Jansen presented in the med ON [...] stress test 09/26/2018 DVT (deep venous thrombosis) ([facility]) 9 Overview (11/16/2022): Last Assessment & Plan: Chronic, 2 episodes. Most recent DVT in March, in right leg. Was started on Xarelto, medically compliant. INR 1.9 today. - Continue home Xarelto Depressive disorder due to separate medical cond ition 06/20/2018 Status post deep brain stimulator placement 01/18 Assessment & Plan (06/04/2022 5:51 PM QUARRY SUPERVISOR): Mr. Jansen presented in the med ON [...] ST. He had reduced levodopa by 1 2 tab with each dose and also reduced [...] discussed the pros and cons of the BetterWorks (Closed) and [employer] deep brain systems including battery size, battery longevity, unilateral vs. bilateral, rechargeable vs. primary cell, remote programming features, and programming features. We decided to proceed using the [employer] Activa SC implantable pulse generator (IPG). Mr. [...] months Assessment & Plan (06/02/2021 10:06 AM QUARRY SUPERVISOR): Mr. Jansen presented in the med ON [...] precuations. Assessment & Plan (06/20/2018 1:11 PM QUARRY SUPERVISOR): Mr. Jansen struggled with sleep from nocturia [...] 01/11/2018 Assessment & Plan (05/04/2023 11:28 AM QUARRY SUPERVISOR): Overall, he had progression of parkinsonism and [...] he has no history of CAD or KS, we will start midodrine. For his fatigue, [...] he has no history of CAD or KS, we could consider midodrine if his BPs [...] week. Assessment & Plan (06/20/2018 1:04 PM QUARRY SUPERVISOR): He has stage 3 PD today, ON [...] Start PT study with Mark. Start APDA Bharat Matrimony exercises. Slow rate of speech 01/06/2017 Diplopia 12/08/2015 Nuclear sclerotic cataract 12/08/2015 Abnormal rapid eye movement sleep 10/30/2015 Chronic constipation 10/30/2015 Persistent insomnia 10/30/2015 Immunizations Name Administration Dates Next Due COVID-19 mRNA (Outbrain) 0.3 m L (30 mcg) vaccine (12 years and up) 01/09/2023 Influenza, Quadrivalent, Hig h Dose, Preservative Free, Intrr 02/05/2021,03/04/2020 Influenza, Trivalent, Adjuva nted, Intramuscular 05/03/2019 Influenza, Trivalent, High D ose, Split, Preservative Free, Intramuscular 02/09/2018,01/28/2018,01/28/2015 Pneumococcal Conjugate PCV 13 07/04/2019 Pneumococcal Polysaccharide PPV23 02/05/2021 ZOSTER Recombinant 09/26/2019,07/04/2019 Social History Tobacco Use Types Packs/Day Years [...] on file Legal Sex Male 2:36 AM QUARRY SUPERVISOR Gender Identity Male 12/09/2020 11:57 AM CDT Sexual Orientation Not on file Last Filed Vital Signs Vital Sign Reading Time Taken Comments Blood Pressure 150/71 04/26/2024 1:07 PM QUARRY SUPERVISOR Pulse 62 04/26/2024 1:07 PM QUARRY SUPERVISOR Temperature 36.4 C (97.5 F) 04/26/2024 1:07 PM QUARRY SUPERVISOR Respiratory Rate 10 04/26/2024 1:07 PM QUARRY SUPERVISOR Oxygen Saturation 98% 04/26/2024 1:07 PM QUARRY SUPERVISOR Inhaled Oxygen Concentration - - Weight 84.4 kg (186 lb) 04/26/2024 1:07 PM QUARRY SUPERVISOR Height 176.5 cm (5' 9.5 ) 04/26/2024 1:07 PM QUARRY SUPERVISOR Body Mass Index 27.07 04/26/2024 1:07 PM QUARRY SUPERVISOR Plan of Treatment Not on file Goals Goal Patient Goal Type Associated Problems Recent Progress Patient-Stated? Author ACO CC Goal - Level of ADL/IADL assistance will meet patient's needs ACO Care Management Denia Marinelli, RN Note: Problem: Inadequate assistance to manage [...] is agreeable. Medical Devices Implanted Type Area Door To Door Lead Generation Device Identifier Shelf Expiration Date Model / Serial / Lot Medtronic Stn Dbs Model 3389 With Activa Sc Bilateral: Brain Description:Mr. Inderjit osorio nt bilateral STN DBS electrode placement (stage I) surgery on November 23, 2011 and implantation of pulse generators (stage II) surgery the following week per Dr. Montiel. Medtronic Inc Stimulator Activa 11624 - [id number] - [id number] Implanted:Qty: 1 on 12/25/2021 by Yusuf Montiel MD at [facility] Right: Chest Medtronic Inc 01/13/2023 71240 / [id number] / Medtronic Inc Stimulator Activa 74716 - [id number] - [id number] Implanted:Qty: 1 on 12/25/2021 by Yusuf Montiel MD at [facility] Left: Chest Medtronic Inc 11/29/2022 48492 / [id number] / Explanted Type Area Door To Door Lead Generation Device Identifier Shelf Expiration Date Model / Serial / Lot Medtronic Inc Stimulator Activa 10713 - [id number] - [id number] Explanted:Qty: 1 on 12/25/2021 at [facility] Left: Chest Medtronic Inc 59668 / [id number] / Medtronic Inc Stimulator Activa 74896 - [id number] - [id number] Explanted:Qty: 1 on 12/25/2021 at [facility] Right: Chest Medtronic Inc 46901 / [id number] / Insurance AETNA MEDICARE AETNA MEDICARE AETNA MEDICARE Advance Directives For more information, please contact: [phone] Documents on File Type Date Recorded Patient Hardware Developer Expl anation ADVANCE DIRECTIVE 11/16/2022 10:11 AM POWER OF CONFERENCE DIRECTOR-MEDICAL Care Teams Senior Ui Ux Designer Relationship Specialty Start Date End Date Santosh Rowe MD [address] [place] [address] PCP - General 10/30/12 Amado Gonzalez MD [address] [place] [address] Referring Physician Orthopedic Surgery 10/12/17 Mark Luis DPT [address] [facility] [address] [place] [address] Physical Therapist Physical Therapy 10/14/17
--- OUTSIDE RECORDS SUMMARY | 2024-05-26 00:17 | XMS_ITS | Continuity of Care Document ---
Author Name Auto Generated, Auto Generated Organization [employer] Support Name Relationship Address Phone Zita Jansen Daughter Unknown Unavailable InderjitJeny Daughter Unknown Unavailable Herbert Jansen Financial Responsible Alliance Party [address] [phone] Herbert Jansen Self [address] [phone] Heydi Jansen [facility] [address] [place] [address] Unavailable Heydi Jansen Spouse [address] [phone] Unavailable Summary Purpose Consult/Referral Allergies, Adverse Reactions, Alerts Type Description/Agent Code Date Allergy Active Date Allergy Inactivated Date of Last Reaction Adverse Reactions Severity Status Comments Source of Information FDB Speci fic Aller gen Group No Known Allergies Active Patient History Medications No Known Medications Conditions/Problems Problem/Diagnosis Awareness of Diagnosis Code (ICD-10) Onset Date (Start Date) Resolution Date (End Date) Status Source Comments PALMAR FASCIAL FIBROMATOSIS [DUPUYTREN] M72.0 10/31/19 22 Active MD Lincoln Denise DISORDER OF THE AUTONOMIC NERVOUS SYSTEM, 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 10/31/19 22 Active MD Lincoln Denise BENIGN PROSTATIC HYPERPLASIA WITHOUT LOWER URINARY TRACT SYMPTOMS N40.0 10/31/19 22 Active MD Lincoln Denise MIXED HYPERLIPIDEMIA E78.2 10/31/19 22 Active MD Lincoln Denise AGE-RELATED OSTEOPOROSIS WITHOUT CURRENT PATHOLOGICAL FRACTURE M81.0 10/31/19 22 Active MD Lincoln Denise VITAMIN D DEFICIENCY, UNSPECIFIED E55.9 10/31/19 22 Active MD Lincoln Denise DEFICIENCY OF OTHER SPECIFIED B GROUP VITAMINS E53.8 10/31/19 22 Active MD Lincoln Denise IRON DEFICIENCY ANEMIA, UNSPECIFIED D50.9 10/31/19 22 MD Lincoln Sanabria HYPOMAGNESEMIA E83.42 10/31/19 22 MD Lincoln Sanabria DRUG INDUCED CONSTIPATION K59.03 10/31/19 22 Active MD Lincoln Denise ADVERSE EFFECT OF OTHER OPIOIDS, SUBSEQUENT ENCOUNTER T40.2X5D 10/31/19 22 MD Lincoln Sanabria URINARY CALCULUS, UNSPECIFIED N20.9 10/31/19 22 MD Lincoln Sanabria DERMATITIS, UNSPECIFIED L30.9 10/31/19 22 Active MD Lincoln Denise PHYSICIAN ASSISTANT PRIMARY CARE (CURRENT) USE OF BISPHOSPHONATES Z79.83 10/31/19 22 Active MD Lincoln Denise UNSPECIFIED FALL, SUBSEQUENT ENCOUNTER W19.XXXD 10/22/19 22 MD Lincoln Sanabria UNSPECIFIED DISLOCATION OF RIGHT ACROMIOCLAVICULAR JOINT, SUBSEQUENT ENCOUNTER S43.101D 10/22/19 22 MD Lincoln Sanabria PARKINSON'S DISEASE G20 06/22/19 20 MD Lincoln Sanabria SPONDYLOSIS WITHOUT MYELOPATHY OR RADICULOPATHY, CERVICAL REGION M47.812 06/22/19 20 Active MD Lincoln Denise UNILATERAL PRIMARY OSTEOARTHRITIS, RIGHT HIP M16.11 06/22/19 20 MD Lincoln Sanabria PERSONAL HISTORY OF OTHER VENOUS THROMBOSIS AND EMBOLISM Z86.718 06/22/19 20 MD Lincoln Sanabria ASSISTED (CURRENT) USE OF ANTICOAGULANTS Z79.01 06/22/19 20 MD Lincoln Sanabria SLOW TRANSIT CONSTIPATION K59.01 06/22/19 20 MD Lincoln Sanabria GASTRO-ESOPHAGEAL REFLUX DISEASE WITHOUT ESOPHAGITIS K21.9 06/22/19 20 MD Lincoln Sanabria EPILEPSY, UNSPECIFIED, NOT INTRACTABLE, WITHOUT STATUS EPILEPTICUS G40.909 06/22/19 20 MD Lincoln Sanabria PERSONAL HISTORY OF (HEALED) TRAUMATIC FRACTURE Z87.81 06/14/19 20 MD Lincoln Sanabria HISTORY OF FALLING Z91.81 06/14/19 20 MD Lincoln Sanabria FRACTURE OF UNSPECIFIED PART OF SCAPULA, LEFT SHOULDER, SUBSEQUENT ENCOUNTER FOR FRACTURE WITH ROUTINE HEALING S42.102D 06/14/19 20 11/02/2021 Resolved MD Lincoln Denise Procedures No Known Procedures
--- OUTSIDE RECORDS SUMMARY | 2024-05-26 00:17 | XMS_ITS | Clinical Summary ---
Author Organization [facility] Address [address] [place] [address] Care Team Providers Care Emt I/99 Name Role Phone Santosh Rowe MD Primary Care Provider [phone] Allergies No known active allergies Medications XARELTO 20 MG Tab tablet Take 20 mg by mouth daily. 08/21/2018 Active alendronate 70 MG tablet Take 70 mg by mouth once a week. 06/28/2018 Active omeprazole 20 MG capsule Take 20 mg by mouth daily. Active LINZESS 290 MCG capsule Take 290 mcg by mouth daily. 07/03/2018 Active vitamin D3, cholecalciferol , 1000 UNIT Tab tablet Take 1,000 Units by mouth daily. Active vitamin B-12 (CYANOCOBALAMIN ) 1000 mcg tablet Take 1,000 mcg by mouth daily. Active entacapone 200 MG tablet Take 200 mg by mouth 5 (five) times daily. 06/20/2018 Active carbidopa-levod opa 25-100 MG tablet Take 1 tablet at 0900, 1.5 tablets at 1200, 1.5 tablets at 1500, 1.5 tablets at 1800, and 2 tablets at 2100 08/22/2018 Active magnesium-calci um EC 71.5-119 MG Tab EC tablet Take 1 tablet by mouth daily. Active Active Problems Problem Noted Date Diagnosed Date Parkinson's disease ([facility]) 09/23/2018 Overview (09/23/2018): deep brain stimulator Assessment & Plan (09/23/2018 4:49 PM CDT): Chronic, medically compliant. Deep brain stimulator in place. -Continue home medications - Carbidopa levodopa on very specific time schedule. DVT (deep venous thrombosis) ([facility]) 0 09/23/2018 Assessment & Plan (09/23/2018 4:50 PM CDT): Chronic, 2 episodes. Most recent DVT in March, in right leg. Was started on Xarelto, medically compliant. INR 1.9 today. - Continue home Xarelto Resolved Problems Problem Noted Date Diagnosed Date Resolved Date Chest pain 09/23/2018 09/24/2018 Assessment & Plan (09/23/2018 4:48 PM CDT): Acute Coronary Syndrome - Unstable angina Acute, unresolved - Risk factors for ACS: Age, suspicion. Nonspecific chest pain. Last stress test about 10 years ago, patient unsure of exact time; pharmacologic. EKG no ischemic changes. - f/u troponin, trop negative x 1 - continue xarelto - Titrate oxygen therapy to maintain saturations > 90%. Currently RA - Given ASA 325 mg x1 in ED, continue 81 mg PO daily - Sublingual nitroglycerin 0.4 mg (sublingual tabs/paste) prn - Cardiac monitoring via telemetry - will consider stress test in AM ROCIO (acute kidney injury) 09/23/2018 Assessment & Plan (09/23/2018 4:51 PM CDT): , Creatinine elevated to 1.80. Unknown what creatinine baseline is. Patient endorses peeing frequently, is his baseline. No sort of urinary symptoms. - 130 cc/h normal saline -BMP in a.m. Social History Tobacco Use Types Packs/Day Years Used Date Smoking Tobacco: Never Smokeless Tobacco: Never Alcohol Use Standard Drinks/Week Comments No 0 (1 standard drink = 0.6 oz pur e alcohol) AUDIT-C Answer Date Recorded Frequency of Alcohol Consumption Never 09/23/2018 Average Number of Drinks Not on file 019 Frequency of Binge Drinking Not on file 11/2018 Sex and Gender Information Value Date Recorded Sex Assigned at Not on file Legal Sex Male 1:30 PM CDT Gender Identity Not on file Sexual Orientation Not on file Last Filed Vital Signs Vital Sign Reading Time Taken Comments Blood Pressure 94/61 09/24/2018 1:54 PM CDT Pulse 86 09/24/2018 1:54 PM CDT Temperature 36.4 C (97.6 F) 09/24/2018 7:23 AM CDT Respiratory Rate 23 09/24/2018 1:54 PM CDT Oxygen Saturation 98% 09/24/2018 11:01 AM CDT Inhaled Oxygen Concentration - - Weight 90.7 kg (200 lb) 09/23/2018 1:43 PM CDT Height 175.3 cm (5' 9 ) 09/23/2018 1:43 PM CDT Body Mass Index 29.53 09/23/2018 1:43 PM CDT Plan of Treatment Health Maintenance Due Date Last Done Comments Colorectal Cancer Screening Colonoscopy (10 Years) 1948 Hepatitis C 1966 DTaP, Tdap and Td Vaccines (1 - Tdap) 1967 Annual Medicare Wellness Visit 2013 RSV Immunization or 60+ Years (1 - 1-dose 75+ series) 2023 COVID-19 Vaccine (2023- season) 2023 01/09/2023, 02/11/2021, 06/27/2020, Additional history exists Influenza Adult (#1) 2024 05/03/2019, 02/09/2018, 01/27/2018, Additional history exists Zoster Vaccines Completed 09/26/2019, 07/04/2019 Pneumococcal Vaccine: 65+ Years Completed 02/05/2021, 07/04/2019 Meningococcal B Vaccine Aged Out No l onger eligible based on patient's age to complete this topic Meningococcal Vaccine Aged Out No violeta dwight eligible based on patient's age to complete this topic RSV Immunizations Under 20 Months Aged Out No longer eligible based on patient's age to complete this topic Insurance [facility] MEDICARE AETNA Advance Directives * Full Code (Latest Code Status on File) Date Activated Date Inactivated Comments 09/23/2018 4:37 PM 09/24/2018 4:38 PM Care Teams Emt I/99 Relationship Specialty Start Date End Date Santosh Rowe MD PCP - General INTERNAL MEDICINE 09/23/18
--- OUTSIDE RECORDS SUMMARY | 2024-05-26 00:17 | XMS_ITS | Clinical Summary ---
Author Organization [facility] Address [address] [place] [address] Phone Care Team Providers Care Human Resource Internship Name Role Phone Santosh Rowe MD Primary Care Provider [phone] Allergies No known active allergies Medications No known medications Social History Tobacco Use Types Packs/Day Years Used Date Smoking Tobacco: Former Smokeless Tobacco: Never Alcohol Use Standard Drinks/Week Comments Never 0 (1 standard drink = 0.6 oz pur e alcohol) Sex and Gender Information Value Date Recorded Sex Assigned at Not on file Legal Sex Male 4:17 PM CDT Gender Identity Not on file Sexual Orientation Not on file Last Filed Vital Signs Vital Sign Reading Time Taken Comments Blood Pressure 124/69 09/09/2020 7:15 PM CDT Pulse 63 09/09/2020 7:15 PM CDT Temperature 36.6 C (97.9 F) 09/09/2020 4:22 PM CDT Respiratory Rate 13 09/09/2020 7:15 PM CDT Oxygen Saturation 96% 09/09/2020 7:15 PM CDT Inhaled Oxygen Concentration - - Weight 88.9 kg (196 lb) 09/09/2020 4:22 PM CDT Height 172.7 cm (5' 8 ) 09/09/2020 4:22 PM CDT Body Mass Index 29.8 09/09/2020 4:22 PM CDT Plan of Treatment Health Maintenance Due Date Last Done Comments Hepatitis C Virus (HCV) Screening 1950 TdaP Immunization 1950 Colonoscopy 1993 Colorectal Cancer Screening 1993 Cologuard 1998 Immunochemical Fecal Occult Blood 1998 Pneumococcal Immunization (50+ years) (1 of 1 - PCV) 1998 Zoster Immunization (2 of 2) 11/21/2019 09/26/2019 Respiratory Syncytial Virus (RSV) Immunization (Adult) (1 - 1-dose 75+ series) 2023 Influenza Immunization (#1) 12/18/202304/18, 02/09/2018, 01/27/2018, Additional history exists SARS-COV-2 Immunization ( - 2023- season) 2023 02/11/2021, 06/27/2020, 05/30/2020 Hepatitis B Immunization Aged Out No longer eligible based on patient's age to complete this topic Meningococcal Immunization (ACWY) Aged Out No longer eligible based on patient's age to complete this topic Rotavirus Immunization Aged Out No lo nger eligible based on patient's age to complete this topic Insurance MEDICARE C [facility] Care Teams Human Resource Internship Relationship Specialty Start Date End Date Santosh Rowe MD [address] [place] [address] PCP - General Internal Medicine 09/09/20
[2024-05-26] MEDS: HYDROmorphone HCL INJ (*CRX) 1 MG/ML SYR 0.5 MG IV PUSH ×2 (01:15→05:12)
[2024-05-26] MEDS: SODIUM CHLORIDE 0.9% IV 1,000 ML 999 ML IV CONT (01:16)
[2024-05-26 01:26] LABS: Add Urine Microscopic? YES; Appearance Urine Clear (Clear); Bacteria Urine None Seen /hpf; Bilirubin Urine Negative (Negative); Blood Urine Negative (Negative); Color Urine Yellow (Yellow); Glucose Urine UA Negative (Negative); Ketones Urine Trace mg/dL (Negative); Leukocyte Esterase Ur Negative LEU/UL (Negative); Nitrate Urine Negative (Negative); Non Pathogenic Casts 0-2; Protein Urine Trace mg/dL (Negative); RBC Urine 0-2 /hpf (0-2); Specific Grav Ur 1.028 (1.001-1.035); Squamous Epithelial Cell Urine None Seen /hpf (Few); WBC Urine 0-5 /hpf (0-3); pH Urine 5.5 (5.0-9.0)
[2024-05-26 01:27] LABS: Creatine Kinase 87 U/L (55-170)
[2024-05-26 01:29] LABS: Lactic Acid Reflex 1.5 mmol/L (0.7-2.0)
[2024-05-26 01:32] LABS: Prothrombin Time 13.7 Seconds (11.1-14.7)
[2024-05-26 01:34] LABS: Alanine Aminotransferase 9 U/L (6-50); Albumin Level 4.2 g/dL (3.5-5.1); Alkaline Phosphatase 39 U/L (38-126); Anion Gap 11 mmol/L (4-12); Aspartate Amino Transferase 27 U/L (17-59); Bilirubin,Total 0.5 mg/dL (0.2-1.3); Blood Urea Nitrogen 45 mg/dL (9-20); Calcium 9.1 mg/dL (8.4-10.2); Carbon Dioxide 25 mmol/L (22-30); Chloride 105 mmol/L (98-107); Estimated CRCL calculation 67 ml/min; Estimated Glomerular Filt Rate > 60; Glucose 110 mg/dL (65-110); Lipase 186 U/L (23-300); Phosphorus 2.9 mg/dL (2.5-4.5); Potassium 4.2 mmol/L (3.4-5.0); Sodium 141 mmol/L (137-145)
[2024-05-26 01:42] LABS: NT Pro B Type Natriuretic Pept 161 pg/mL (19.9-100); Troponin I < 0.012 ng/mL (0.000-0.034)
[2024-05-26 01:55] LABS: Influenza A QL RT-PCR Negative (Negative); Influenza B QL RT-PCR Negative (Negative); RSV RNA, RT-PCR Negative (Negative); SARS-CoV-2 RNA PCR Negative (Negative)
[2024-05-26 02:38] LABS: Basophils Percent Auto 0.3 % (0.2-1.2); Eosinophils Absolute Auto 0.2 K/mm3 (0-0.3); Eosinophils Percent Auto 1.8 % (0-4.4); Hemoglobin 12.2 g/dL (14.0-18.0); Immature Granulocyte Absolute 0.05 K/mm3 (0.00-0.031); Immature Granulocyte Percent A 0.5 % (0-0.5); Lymphocytes Absolute Auto 1.43 K/mm3 (0.9-3.2); Lymphocytes Percent Auto 14.8 % (18.3-44.2); Mean Corpuscular Hemoglobin 33.1 pg (26-34); Mean Corpuscular Volume 100.3 fl (80-100); Mean Platelet Volume 12.2 fl (7.4-10.4); Monocytes Absolute Auto 1.1 K/mm3 (0.1-0.6); Monocytes Percent Auto 10.9 % (2.6-8.5); Neutrophils Percent Auto 71.7 % (45.5-73.1); Platelet Count Result 150 k/mm3 (150-375); Red Blood Count 3.69 M/mm3 (4.6-6.20); Red Cell Distribution Width 12.4 % (11.5-14.5); White Blood Count 9.7 K/mm3 (4.5-10.0)
--- NOTE | 2024-05-26 03:06 | ED_ITS ---
HPI - General Adult General Chief complaint: Back Pain/Injury Stated complaint: fall/back pain Time Seen by Provider: 05/26/24 00:02 History of Present Illness HPI narrative: This is a 73-year-old male with history of Parkinson's, hypotension on midodrine and chronic dizziness presenting after a fall. Patient was at home when he became dizzy and fell backwards landing on his back. He now has right-sided back and thorax pain he did not strike his head or lose consciousness. Patient is not use blood thinners. Related Data Home Medications ?Medication ?Instructions ?Recorded ?Confirmed ?Last Taken ?Type cholecalciferol (vitamin D3) 50 50 mcg PO DAILY 07/26/23 04/02/24 Unknown History mcg (2,000 unit) capsule botox injections IM 08/04/23 04/02/24 Unknown History glycerin (adult) (Fleet Glycerin 1 supp RECTAL DAILY PRN 08/04/23 04/02/24 Unknown History (Adult) rectal suppository) simply thick BYMOUTH PRN 08/04/23 04/02/24 Unknown History Allergies Allergy/AdvReac Type Severity Reaction Status Date / Time No Known Allergies Allergy Verified 04/02/24 10:10 [facility] Past Medical History Medical History CKD (chronic kidney disease) Laceration of knee, left BMI 27.0-27.9,adult Anemia Hearing loss Multiple falls Trigger finger of right hand Chronic deep vein thrombosis Deep vein thrombosis of left lower limb X2 BPH (benign prostatic hyperplasia) History of pelvic fracture Constipation by delayed colonic transit Vitamin D deficiency Iron deficiency anemia Vitamin B12 deficiency Orthostatic hypotension Eczema Dupuytrens contracture Hyperlipidemia GERD (gastroesophageal reflux disease) Osteoporosis Autonomic dysfunction Ventral hernia Kidney stones Seizures Parkinsons disease Surgical History Surgical History History of hemorrhoidectomy (12/29/21) Due to thrombosed hemorrhoid History of appendectomy S/P deep brain stimulator placement (~2011) Hx of repair of right rotator cuff Hx of tonsillectomy Family History Family History Mother Family history of Alzheimer's disease Sibling Family history of malignant neoplasm of breast in first degree relative two sisters with breast cancer Father Family history of hepatitis Social History Social History Social History: Patient lives at home with his , Heydi, who is his surrogate MDM. His PCP is Dr. Rowe. He wishes to be listed as a Full Code. However he does not think he would want a G-tube. 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 Gender identity (if verbalized by the patient): Male Spiritual care concerns: No Agree to blood products: Yes Exam 2 Narrative: APPEARANCE: Patient appears older than his stated age Head: atraumatic. EYES: EOMI, NOSE: Atraumatic NECK: Trachea midline RESPIRATORY: No increased rate of breathing CTAB CARDIOVASCULAR: RRR, no peripheral edema ABDOMINAL: Non-distended soft nontender MUSCULOSKELETAl: Tenderness to palpation over the right thorax, head to toe trauma exam performed with no other areas of traumatic injury NEURO: Alert. moving 4/4 extremities, muscles stiff/rigid Parkinson's SKIN:: Warm, dry. Normal color PSYCHIATRIC: Normal affect Course Vital Signs Vital signs: Vital Signs Temperature 98.1 F 05/25/24 22:47 Pulse Rate 81 05/25/24 22:47 Respiratory Rate 16 05/25/24 22:47 Pulse Oximetry 98 05/25/24 22:47 Oxygen Delivery Room Air 05/25/24 22:47 Temperature 98.1 F 05/25/24 22:47 Pulse Rate 81 05/25/24 22:47 Respiratory Rate 16 05/25/24 22:47 Pulse Oximetry 98 05/25/24 22:47 Oxygen Delivery Room Air 05/25/24 22:47 Medical Decision Making MDM Narrative Medical decision making narrative: -Course: 73-year-old male with Parkinson's, hypertension and dizziness presenting after ground level fall. Tenderness over the right ribcage. Mitchell scan showed 4 acute rib fractures 7 through 10. Also showed a subacute versus chronic manubrium fracture. CT head negative. On re-evaluation the patient's oxygen level had dropped to 88%. He is placed on 2 L nasal cannula. Patient transferred to a trauma center for multiple rib fractures. Patient was accepted [facility] under Dr. Nuñez. -DDX includes but is not limited to:ICH, Bony injury, soft tissue injury -Co-morbidities complicating care: Parkinson's, hypotension Vital Signs Vital Signs: Vital Signs Temperature 98.1 F 05/25/24 22:47 Pulse Rate 81 05/25/24 22:47 Respiratory Rate 16 05/25/24 22:47 Pulse Oximetry 98 05/25/24 22:47 Oxygen Delivery Room Air 05/25/24 22:47 Temperature 98.1 F 05/25/24 22:47 Pulse Rate 81 05/25/24 22:47 Respiratory Rate 16 05/25/24 22:47 Pulse Oximetry 98 05/25/24 22:47 Oxygen Delivery Room Air 05/25/24 22:47 Lab Data 05/26/24 02:32 05/26/24 01:10 Labs: Lab Results 05/26/24 05/26/24 Range/Units 01:10 02:32 WBC 9.7 (4.5-10.0) K/mm3 RBC 3.69 L (4.6-6.20) M/mm3 Hgb 12.2 L (14.0-18.0) g/dL Hct 37.0 L (42.0-52.0) % MCV 100.3 H (80-100) fl MCH 33.1 (26-34) pg MCHC 33.0 (32-36) g/dl RDW 12.4 (11.5-14.5) % Plt Count 150 (150-375) k/mm3 MPV 12.2 H (7.4-10.4) fl Immature Gran % (Auto) 0.5 (0-0.5) % Neut % (Auto) 71.7 (45.5-73.1) % Lymph % (Auto) 14.8 L (18.3-44.2) % [place] % (Auto) 10.9 H (2.6-8.5) % Eos % (Auto) 1.8 (0-4.4) % Baso % (Auto) 0.3 (0.2-1.2) % Lymph # (Auto) 1.43 (0.9-3.2) K/mm3 [place] # (Auto) 1.1 H (0.1-0.6) K/mm3 Eos # (Auto) 0.2 (0-0.3) K/mm3 Baso # (Auto) 0.0 (0.0-0.1) K/mm3 Abs Immat Gran (auto) 0.05 H (0.00-0.031) K/mm3 Absolute Neuts (auto) 7.0 H (1.3-6.7) K/mm3 Absolute Nucleated RBC 0.000 (0.0-0.012) K/mm3 Nucleated RBC % 0.0 (0.0-0.2) % PT 13.7 (11.1-14.7) Seconds INR 1.0 APTT 20.0 L (22.3-36.8) Seconds Sodium 141 (137-145) mmol/L Potassium 4.2 (3.4-5.0) mmol/L Chloride 105 (98-107) mmol/L Carbon Dioxide 25 (22-30) mmol/L Anion Gap 11 (4-12) mmol/L BUN 45 H D (9-20) mg/dL Creatinine 0.92 (0.7-1.3) mg/dL Estim Creat Clear Calc 67 ml/min Estimated GFR > 60 (59 - ) Glucose 110 (65-110) mg/dL Lactic Acid 1.5 (0.7-2.0) mmol/L Calcium 9.1 (8.4-10.2) mg/dL Phosphorus 2.9 (2.5-4.5) mg/dL Magnesium 2.0 (1.6-2.3) mg/dL Total Bilirubin 0.5 (0.2-1.3) mg/dL AST 27 (17-59) U/L ALT 9 (6-50) U/L Alkaline Phosphatase 39 (38-126) U/L Total Creatine Kinase 87 (55-170) U/L Troponin I < 0.012 (0.000-0.034) ng/mL NT-Pro-B Natriuret Pep 161 H (19.9-100) pg/mL Total Protein 7.0 (6.3-8.2) g/dL Albumin 4.2 (3.5-5.1) g/dL Lipase 186 (23-300) U/L Urine Color Yellow (Yellow) Urine Appearance Clear (Clear) Urine pH 5.5 (5.0-9.0) Ur Specific [place] 1.028 (1.001-1.035) Urine Protein Trace (Negative) mg/dL Urine Glucose (UA) Negative (Negative) mg/dL Urine Ketones Trace H (Negative) mg/dL Ur Blood (Man) Negative (Negative) Urine Nitrate Negative (Negative) Urine Bilirubin Negative (Negative) Urine Urobilinogen 1.0 (<2.0) mg/dL Leukocyte Esterase Rfl Negative (Negative) LISA/UL Urine RBC 0-2 (0-2) /hpf Urine WBC 0-5 (0-3) /hpf Ur Squamous Epith Cells None seen (Few) /hpf Urine Bacteria None seen /hpf Urine Casts 0-2 Influenza A (RT-PCR) Negative (Negative) Influenza B (RT-PCR) Negative (Negative) RSV (RT-PCR) Negative (Negative) SARS-CoV-2 RNA (RT-PCR) Negative (Negative) Discharge Plan Discharge Clinical Impression: Multiple rib fractures Patient Disposition: Acute Care Hospital Condition: Stable Patient Language: Croatian Prescriptions: No Action aspirin [Adult Low Dose Aspirin] 81 mg tablet,delayed release (DR/EC) 81 mg PO BID Qty: 180 1RF simply thick BYMOUTH PRN glycerin (adult) [Fleet Glycerin (Adult)] Suppository 1 supp RECTAL DAILY PRN botox injections IM alendronate 70 mg tablet 70 mg PO WEEKLY 180 Days Qty: 26 1RF Rx Instructions: Tuesday carbidopa-levodopa 50-200 mg tablet extended release 1 tablet PO HS Qty: 90 0RF cholecalciferol (vitamin D3) 50 mcg (2,000 unit) capsule 50 mcg PO DAILY midodrine 5 mg tablet 5 mg PO TID Qty: 270 1RF rosuvastatin 10 mg tablet See Rx Instructions .ROUTE .COMPLEX Qty: 90 0RF Dose Instruction: TAKE 1 TABLET BY MOUTH DAILY Rx Instructions: TAKE 1 TABLET BY MOUTH DAILY folic acid 1 mg tablet See Rx Instructions .ROUTE .COMPLEX Qty: 90 0RF Dose Instruction: TAKE 1 TABLET BY MOUTH DAILY Rx Instructions: TAKE 1 TABLET BY MOUTH DAILY finasteride 5 mg tablet 5 mg PO DAILY Qty: 90 1RF midodrine 10 mg tablet See Rx Instructions .ROUTE .COMPLEX Qty: 270 0RF Dose Instruction: TAKE 1 TABLET BY MOUTH THREE TIMES DAILY. DO NOT GIVE LAST DOSE OF DAY AFTER 6 PM OR WITHIN 4 HOURS OF BEDTIME Rx Instructions: TAKE 1 TABLET BY MOUTH THREE TIMES DAILY. DO NOT GIVE LAST DOSE OF DAY AFTER 6 PM OR WITHIN 4 HOURS OF BEDTIME Linzess 290 mcg capsule 290 mcg PO DAILY Qty: 90 1RF carbidopa-levodopa 25-100 mg tablet See Rx Instructions .ROUTE .COMPLEX Qty: 270 1RF Dose Instruction: TAKE 1 TABLET BY MOUTH THREE TIMES DAILY(AT 9AM, 1PM, AND 5PM) Rx Instructions: TAKE 1.5 TABLET BY MOUTH THREE TIMES DAILY(AT 9AM, 1PM, AND 5PM) Follow-up/Referrals: Santosh Rowe MD [Primary Care Provider] -
[2024-05-26 03:52] VITALS: BP 130/79; PULSE 80; RESP 19; O2SAT 92
[2024-05-26 03:53] VITALS: O2SAT 94
[2024-05-26 04:21] VITALS: BP 136/78; PULSE 75; RESP 17; O2SAT 98
== END 2024-05-26 05:19 | disposition short-term general hospital (02) ==
PROVIDERS: Emergency Provider Emergency Medicine; PCP Internal Medicine
DX: S22.41XA Multiple fractures of ribs, right side, initial encounter for closed fracture (principal); W19.XXXA Unspecified fall, initial encounter; G20.A1 Parkinson's disease without dyskinesia, without mention of fluctuations; N18.9 Chronic kidney disease, unspecified; Z86.718 Personal history of other venous thrombosis and embolism; E55.9 Vitamin D deficiency, unspecified; E78.5 Hyperlipidemia, unspecified; K21.9 Gastro-esophageal reflux disease without esophagitis; M81.0 Age-related osteoporosis without current pathological fracture; I10 Essential (primary) hypertension; Z20.822 Contact with and (suspected) exposure to COVID-19
CPT/HCPCS: 36415; 70450; 71045; 71260; 72125; 72128; 72131; 74177; 80053; 81001; 82550; 83605; 83690; 83735; 83880; 84100; 84484; 85025; 85610; 85730; 87637; 93005; 96374; 96376; 99285; J1171; J7030; Q9967

== ENCOUNTER 2024-07-28 13:11 | Emergency (ER) | payer MEDICARE, SELFPAY ==
--- NOTE | ~2024-07-28 | CT_ITS ---
EXAM: CT brain wo con, CT cervical spine wo con - 07/28/2024 13:25 CDT HISTORY: 74 years old Male with Ground Level Fall COMPARISON: 05/25/2024 PROCEDURE: CT of the head and cervical spine without contrast. Axial, sagittal and coronal reformat selin planes were evaluated. Automatic exposure control was used for this study. FINDINGS: CT HEAD: BRAIN PARENCHYMA: Grossly unchanged bifrontal leads. No acute hemorrhage. No mass effect or herniation. Castillo-white olivier er differentiation is maintained. Mild chronic volume loss. Scattered hypodensities in subcortical an d periventricular white matter, likely representing chronic microvascular ischemic changes in this ag e group. Atherosclerotic calcification of the intracranial vessels is noted. VENTRICLES/ EXTRA-AXIAL SPACES: No hydrocephalus or extra-axial fluid collection. EXTRACRANIAL STRUCTURES: No calvarial fracture. CT CERVICAL SPINE: No acute fracture or subluxation. Straightening of cervical lordosis, likely positional or may be rel ated to muscle spasm. Multilevel degenerative changes of the cervical spine include varying degrees o f disk space narrowing, endplate osteophytosis as well as facet and uncal arthropathy. Prevertebral s oft tissues are within normal limits. Visualized lung apices are clear. IMPRESSION: 1. No evidence for acute intracranial hemorrhage or calvarial fracture. 2. No evidence for cervical spine fracture or traumatic subluxation. 3. Multilevel degenerative changes of the cervical spine. Reviewed, dictated and finalized at location A. IMPRESSION: 1. No evidence for acute intracranial hemorrhage or calvarial fracture. 2. No evidence for cervical spine fracture or traumatic subluxation. 3. Multilevel degenerative changes of the cervical spine.
[2024-07-28 13:15] VITALS: PULSE 64; RESP 16; TEMP 36.6; O2SAT 99
--- OUTSIDE RECORDS SUMMARY | 2024-07-28 13:35 | XMS_ITS ---
Author Name Lincoln Denise Address [address] [place] [address] Phone [phone] [facility] Address [address] [place] [address] Phone [phone] Care Team Providers Care Lab Instructor Name Role Phone Lincoln Denise Unavailable Baljit Avitia Unavailable [phone] Amado Gonzalez Unavailable [phone] Functional Status Mental Status Allergies and Intolerances Medications Problems Reason for Referral Past Medical History
--- OUTSIDE RECORDS SUMMARY | 2024-07-28 13:35 | XMS_ITS | Clinical Summary ---
Author Organization [facility] Address [address] [place] [address] Care Team Providers Care Signalling And Communications Engineer Name Role Phone Santosh Rowe MD Primary Care Provider [phone] Allergies No known active allergies Medications XARELTO [...] Problem Noted Date Diagnosed Date Parkinson's disease ([facility]) 09/23/2018 Overview (09/23/2018): deep brain stimulator Assessment & Plan (09/23/2018 4:49 PM CDT): Chronic, medically compliant. Deep brain stimulator in place. -Continue home medications - Carbidopa levodopa on very specific time schedule. DVT (deep venous thrombosis) ([facility]) 0 09/23/2018 Assessment & Plan (09/23/2018 4:50 [...] Due Date Last Done Comments Hepatitis C 1966 DTaP, Tdap and Td Vaccines (1 - Tdap) 1969 Annual Medicare Wellness Visit 2013 RSV Immunization or 60+ Years (1 - 1-dose 75+ series) 2023 COVID-19 Vaccine ( season) 2023 01/09/2023, 02/11/2021, 06/27/2020, Additional history exists Zoster Vaccines Completed 09/26/2019, [...] patient's age to complete this topic Insurance MED REPLACE [facility] MEDICARE [place] [id number] AETNA Advance Directives * Full Code (Latest Code Status on File) Date Activated Date Inactivated Comments 09/23/2018 4:37 PM 09/24/2018 4:38 PM Care Teams Signalling And Communications Engineer Relationship Specialty Start Date End Date Santosh Rowe MD PCP - General INTERNAL MEDICINE 09/23/18
--- OUTSIDE RECORDS SUMMARY | 2024-07-28 13:35 | XMS_ITS | Clinical Summary ---
Author Organization [facility] Address [address] [place] [address] Phone Care Team Providers Care Milling/Polishing Operator Name Role Phone Santosh Rowe MD Primary Care Provider Allergies No known active allergies Medications No [...] Virus (HCV) Screening 1950 TdaP Immunization 1950 Pneumococcal Immunization (50+ years) (1 of 1 [...] to complete this topic [facility] Care Teams Milling/Polishing Operator Relationship Specialty Start Date End Date Santosh Rowe MD [address] [place] [address] PCP - General Internal Medicine 09/09/20
--- OUTSIDE RECORDS SUMMARY | 2024-07-28 13:35 | XMS_ITS ---
Author Name Lincoln Denise Ashok Address [address] [place] [address] Phone [phone] Organization [facility] Address [address] [place] [address] Phone [phone] Care Team Providers Care Roll Former Name Role Phone Lincoln Denise Unavailable Adore Baljit Unavailable Amado Gonzalez Unavailable [phone] Functional Status No Results Mental Status No Results Allergies and Intolerances Name Onset Date Reaction Severity No Known Allergies (Allergy) TueJun 21 15:37:00 2019 Medications Medication Directions Start Date End Date HYDROcodone 5 mg-acetaminophen 325 mg tablet 1 TAB TABLET Oral PRN Every 4 Hours *DO NOT EXCEED 3GM/DAY APAP FROM ALL SOURCES*DX PAIN 4-6 TueOct 30 14:00:00 EDT 2021Nov 10 01:00:00 EDT 2021 glycerin (adult) rectal suppository 1 SUPP SUPPOSITORY, RECTAL Rectal 1 Time Daily UNWRAP & INSERT 1 SUPPOSITORYDX CONSTIPATION TueOct 30 14:00:00 EDT 2021Nov 10 01:00:00 EDT 2021 cholecalciferol (vitamin D3) 50 mcg (2,000 unit) tablet 1 TAB TABLET Oral 1 Time Daily DX SUPPLEMENT TueOct 30 14:00:00 EDT 2021Nov 10 01:00:00 EDT 2021 alendronate 70 mg tablet 1 TAB TABLET Or al 1 Time Weekly TAKE ON SUNDAYS WITH 6-8OZ WATER ON EMPTY STOMACH. DO NOT LIE DOWN, EAT OR DRINK FOR 30 MINUTES AFTERDX OSTEOPOROSIS TueNov 01 01:00:00 EDT 2021Nov 10 01:00:00 EDT 2021 Chava-Gest Antacid 200 mg calcium (500 mg) chewable tablet 1 TAB TABLET,CHEWABLE Oral 1 Time Daily DX SUPPLEMENT TueOct 30 14:00:00 2021Nov 10 01:00:00 2021 magnesium 250 mg tablet 1 TAB TABLET Ora l 1 Time Daily DX SUPPLEMENT TueOct 30 14:00:00 2021Nov 10 01:00:00 ED2021 cyanocobalamin (vit B-12) 1,000 mcg tablet 1 TAB TABLET Oral 1 Time Daily TueOct 30 14:00:00 2021Nov 10 01:00:00 2021 Linzess 290 mcg capsule 1 CAP CAPSULE Or al 1 Time Daily for 90 Days DX IBS W/ CONSTIPATION TueOct 30 14:00:00 2021Nov 10 01:00:00 2021 entacapone 200 mg tablet 0.5 TAB TABLET Oral 5 Times Daily HALF [id number] TueOct 30 14:00:00 2021Oct 30 15:25:00 2021 Xarelto 20 mg tablet 1 TAB TABLET Oral 1 Time Daily TueOct 30 14:00:00 2021Nov 10 01:00:00 2021 midodrine 5 mg tablet 1 TAB TABLET Oral 3 Times Daily DX HYPOTENSION TueOct 30 14:00:00 2021Nov 10 01:00:00 2021 rosuvastatin 10 mg tablet 1 TAB TABLET O ral 1 Time Daily DX HIGH CHOLESTEROL TueOct 30 14:00:00 2021Nov 10 01:00:00 2021 folic acid 1 mg tablet 1 TAB TABLET Oral 1 Time Daily DX SUPPLEMENT TueOct 30 14:00:00 2021Nov 10 01:00:00 2021 ClearLax 17 gram/dose oral powder 17GM POWDER (GRAM) Oral 1 Time Daily DISSOLVE 17GM IN 4-8OZ IN LIQUIDDX CONSTIPATION TueOct 30 14:00:00 2021Nov 10 01:00:00 2021 entacapone 200 mg tablet 0.5 TAB TABLET Oral 5 Times Daily HALF [id number] TueOct 30 15:23:00 2021Nov 10 01:00:00 EDT 2021 carbidopa 25 mg-levodopa 100 mg tablet 1.5 tabs TABLET Oral 1 Time Daily TueOct 30 23:00:00 2021Oct 31 00:42:00 2021 cyclobenzaprine 5 mg tablet 1 tab TABLET Oral 3 Times Daily for 14 Days muscle spasms TueOct 30 21:00:00 2021Nov 10 01:00:00 2021 carbidopa 25 mg-levodopa 100 mg tablet 1 .5 tabs TABLET Oral 4 Times Daily TueOct 31 07:00:00 2021Nov 10:00:00 2021 carbidopa 25 mg-levodopa 100 mg tablet 2 tabs TABLET Oral 1 Time Daily TueOct 31 23:00:00 2021Nov 10:00:00 2021 TUBErsoL 5 tub. unit/0.1 mL intradermal injection solution Read Results VIAL (ML) Other 1 Time Weekly for 2 Weeks Read results between 48-72 hours after 1st and 2nd 1 week apart. If positive do chest x-ray to rule out active disease. TueJun 24 09:00:00 2019Jul 03:00:00 2019 acetaminophen 325 mg tablet 325-650mg TA BLET Oral PRN Every 6 Hours 1-2 tabs Q 6 hr prn TueJun 24 01:00:00 2019Jul 03:00:00 2019 polyethylene glycoL 3350 17 gram/dose oral powder 1 dose POWDER (GRAM) Oral PRN 1 Time Daily dx constipation TueJun 24 01:00:00 2019Jul 03 01:00:00 2019 traMADoL 50 mg tablet 25mg/0.5tab TABLET Oral PRN Every 6 Hours 0.5tab/25mg Q6hr prn TueJun 24 01:00:00 2019Jul 03 01:00:00 2019 carbidopa 25 mg-levodopa 100 mg tablet 1.5 tabs TABLET Oral 4 Times Daily TueJun 22 12:00:00 2019Jul 03:00:00 2019 acetaminophen 325 mg tablet 325-650mg TA BLET Oral PRN (Max 4 Doses) 1-2 tabs Q 6 hr prn TueJun 21 15:30:00 2019Jun 24 12:33:00 2019 alendronate 70 mg tablet 70mg TABLET Ora l 1 Time Weekly TueJun 21 15:30:00 2019Jul 03 01:00:00 T 2019 carbidopa ER 25 mg-levodopa 100 mg tablet,extended release 1.5 tab TABLET, EXTENDED RELEASE Oral 4 Times Daily 1.5 tabs 4xdaily TueJun 21 15:30:00 2019 07 11:50:00 2019 carbidopa 25 mg-levodopa 100 mg tablet 2tab TABLET Oral 1 Time Daily 2 tabs @ HS TueJun 21 15:30:00 2019Jul 03 01:00:00 T 2019 Fleet Glycerin (Adult) rectal suppository 1 dose SUPPOSITORY, RECTAL Rectal 1 Time Daily TueJun 21 15:30:00 2019Jul 03 01:00:00 2019 Linzess 290 mcg capsule 290mcg CAPSULE O ral 1 Time Daily TueJun 21 15:30:00 2019Jul 03 01:00:00 2019 magnesium 250 mg (as magnesium oxide) tablet 500mg TABLET Oral 1 Time Daily TueJun 21 15:30:00 2019Jul 03 01:00:00 T 2019 omeprazole 20 mg capsule,delayed release 20mg CAPSULE,DELAYED RELEASE (ENTERIC COATED) Oral 1 Time Daily TueJun 21 15:30:00 2019Jul 03 01:00:00 T 2019 Oyster Shell Calcium 500 mg calcium (1,250 mg) tablet 1000mg TABLET Oral 1 Time Daily 2 tabs TueJun 21 15:30:00 2019Jul 03 01:00:00 2019 polyethylene glycoL 3350 17 gram/dose oral powder 1 dose POWDER (GRAM) Oral PRN (Max 1 Doses) TueJun 21 15:30:00 2019 09 12:37:00 2019 Stool Softener 100 mg tablet 100mg TABLET Oral 2 Times Daily TueJun 21 15:30:00 2019Jul 03 01:00:00 T 2019 Xarelto 20 mg tablet 20mg TABLET Oral 1 Time Daily 1 tab before breakfast TueJun 21 15:30:00 2019Jul 03 01:00:00 2019 cholecalciferol (vitamin D3) 2,000 unit chewable tablet 2,000unit TABLET,CHEWABLE Oral 1 Time Daily TueJun 21 15:30:00 2019Jul 03 01:00:00 T 2019 Vitamin B-12 100 mcg tablet 2tabs TABLET Oral 1 Time Daily TueJun 21 15:30:00 2019Jul 03 01:00:00 EDT 2019 traMADoL 50 mg tablet 25mg/0.5tab TABLET Oral PRN (Max 4 Doses) 0.5tab/25mg Q6hr prn TueJun 21 15:30:00 2019Jun 24 12:39:00 EDT 2019 entacapone 200 mg tablet 200mg TABLET Or al 5 Times Daily to be taken with carbidopa levodopa TueJun 21 15:30:00 2019Jul 03 01:00:00 EDT 2019 TUBErsoL 5 tub. unit/0.1 mL intradermal injection solution 0.1 ml VIAL (ML) Intradermal 1 Time Weekly for 2 Weeks (PPD) 1st injection upon admission. Read between 48 and 72 hours and give 2nd injection 1 week after the 1st if result is negative. If positive result, proceed with chest x-ray to rule out active disease. TueJun 22 09:00:00 2019Jul 03 01:00:00 EDT 2019 Problems Active Concerns * Parkinson's disease* Code: * Start Date: TueJun 21 00:00:00 2019 * End Date: * Text: * Spondylosis without myelopathy or radiculopathy, cervical region* Code: * Start Date: TueJun 21 00:00:00 2019 * End Date: * Text: * Unilateral primary osteoarthritis, right hip* Code: * Start Date: TueJun 21:00:00 2019 * End Date: * Text: * History of falling* Code: * Start Date: TueJun 21 00:00:00 2019 * End Date: * Text: * Personal history of other venous thrombosis and embolism* Code: * Start Date: TueJun 21 00:00:00 2019 * End Date: * Text: * long-term (current) use of anticoagulants* Code: * Start Date: TueJun 21 00:00:00 2019 * End Date: * Text: * Slow transit constipation* Code: * Start Date: TueJun 21 00:00:00 2019 * End Date: * Text: * Gastro-esophageal reflux disease without esophagitis* Code: * Start Date: TueJun 21 00:00:00 2019 * End Date: * Text: * Epilepsy, unspecified, not intractable, without status epilepticus* Code: * Start Date: TueJun 21 00:00:00 2019 * End Date: * Text: * Personal history of (healed) traumatic fracture* Code: * Start Date: TueOct 30 00:00:00 EDT 2021 * End Date: * Text: * Unspecified dislocation of right acromioclavicular joint, subsequent encounter * Code: * Start Date: TueOct 30 00:00:00 EDT 2021 * End Date: * Text: * Palmar fascial fibromatosis [Dupuytren]* Code: * Start Date: TueOct 30 00:00:00 EDT 2021 * End Date: * Text: * Disorder of the autonomic nervous system, unspecified* Code: * Start Date: TueOct 30 00:00:00 EDT 2021 * End Date: * Text: * Benign prostatic hyperplasia without lower urinary tract symptoms* Code: * Start Date: TueOct 30 00:00:00 EDT 2021 * End Date: * Text: * Mixed hyperlipidemia* Code: * Start Date: TueOct 30 00:00:00 EDT 2021 * End Date: * Text: * Age-related osteoporosis without current pathological fracture* Code: * Start Date: TueOct 30 00:00:00 EDT 2021 * End Date: * Text: * Vitamin D deficiency, unspecified* Code: * Start Date: TueOct 30 00:00:00 EDT 2021 * End Date: * Text: * Deficiency of other specified B group vitamins* Code: * Start Date: TueOct 30 00:00:00 EDT 2021 * End Date: * Text: * Iron deficiency anemia, unspecified* Code: * Start Date: TueOct 30 00:00:00 EDT 2021 * End Date: * Text: * Hypomagnesemia* Code: * Start Date: TueOct 30 00:00:00 EDT 2021 * End Date: * Text: * Drug induced constipation* Code: * Start Date: TueOct 30 00:00:00 EDT 2021 * End Date: * Text: * Adverse effect of other opioids, subsequent encounter* Code: * Start Date: TueOct 30 00:00:00 EDT 2021 * End Date: * Text: * Urinary calculus, unspecified* Code: * Start Date: TueOct 30 00:00:00 EDT 2021 * End Date: * Text: * Dermatitis, unspecified* Code: * Start Date: TueOct 30 00:00:00 EDT 2021 * End Date: * Text: * terminal clerk (current) use of bisphosphonates* Code: * Start Date: TueOct 30 00:00:00 EDT 2021 * End Date: * Text: * Unspecified fall, subsequent encounter* Code: * Start Date: TueOct 30 00:00:00 EDT 2021 * End Date: * Text: Reason for Referral Past Medical History Resolved Concerns * Problem Fracture of unspecified part of scapula, left shoulder, subsequent encounter for fracture with routine healing* Code: * Start Date: TueJun 21 00:00:00 EST 2019 * End Date: TueNov 02 00:00:00 EDT 2021
--- NOTE | 2024-07-28 13:47 | ED_ITS ---
HPI - General Adult General Chief complaint: Fall Stated complaint: glf History of Present Illness HPI narrative: This is a 74-year-old male with a history of Parkinson's and frequent falls presenting after a fall. He is being transferred from his bed to his chair when he fell landing on his head. Denies loss of consciousness. He is on blood thinners. No other injuries. No other complaints. Related Data Home Medications ?Medication ?Instructions ?Recorded ?Confirmed ?Last Taken ?Type cholecalciferol (vitamin D3) 50 50 mcg PO DAILY 07/26/23 07/02/24 Unknown History mcg (2,000 unit) capsule botox injections IM 08/04/23 07/02/24 Unknown History simply thick BYMOUTH PRN 08/04/23 07/02/24 Unknown History Allergies Allergy/AdvReac Type Severity Reaction Status Date / Time No Known Allergies Allergy Verified 04/02/24 10:10 [facility] Past Medical History Medical History (Updated 07/28/24 @ 13:58 by Goyo Manzo MD) Fall DVT (deep venous thrombosis) CKD (chronic kidney disease) Laceration of knee, left BMI 27.0-27.9,adult Anemia Hearing loss Multiple falls Trigger finger of right hand Chronic deep vein thrombosis Deep vein thrombosis of left lower limb X2 BPH (benign prostatic hyperplasia) History of pelvic fracture Constipation by delayed colonic transit Vitamin D deficiency Iron deficiency anemia Vitamin B12 deficiency Orthostatic hypotension Eczema Dupuytrens contracture Hyperlipidemia GERD (gastroesophageal reflux disease) Osteoporosis Autonomic dysfunction Ventral hernia Kidney stones Seizures Parkinsons disease Surgical History Surgical History History of hemorrhoidectomy (12/29/21) Due to thrombosed hemorrhoid History of appendectomy S/P deep brain stimulator placement (~2011) Hx of repair of right rotator cuff Hx of tonsillectomy Family History Family History Mother Family history of Alzheimer's disease Sibling Family history of malignant neoplasm of breast in first degree relative two sisters with breast cancer Father Family history of hepatitis Social History Social History Social History: Patient lives at home with his , Heydi, who is his surrogate MDM. His PCP is Dr. Rowe. He wishes to be listed as a Full Code. However he does not think he would want a G-tube. 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 Gender identity (if verbalized by the patient): Male Spiritual care concerns: No Agree to blood products: Yes Exam Narrative: APPEARANCE: No apparent distress. Head: Hematoma over the right forehead at the hairline EYES: EOMI, NOSE: Atraumatic NECK: Trachea midline, no midline cervical tenderness RESPIRATORY: No increased rate of breathing CARDIOVASCULAR: RRR, ABDOMINAL: Non-distended MUSCULOSKELETAl: Head to toe trauma exam performed, chronic right clavicular fracture, no other areas of tenderness or injury NEURO: Alert. Moving 4/4 extremities SKIN:: Warm, dry. Normal color PSYCHIATRIC: Normal affect Course Vital Signs Vital signs: Vital Signs Temperature 97.9 F 07/28/24 13:15 Pulse Rate 64 07/28/24 13:15 Respiratory Rate 16 07/28/24 13:15 Pulse Oximetry 99 07/28/24 13:15 Oxygen Delivery Room Air 07/28/24 13:15 Temperature 97.9 F 07/28/24 13:15 Pulse Rate 64 07/28/24 13:15 Respiratory Rate 16 07/28/24 13:15 Pulse Oximetry 99 07/28/24 13:15 Oxygen Delivery Room Air 07/28/24 13:15 Medical Decision Making MDM Narrative Medical decision making narrative: -Course: 74-year-old male presenting after ground level fall. CT head and C- spine negative for acute injury. No other injuries. Patient be discharged back home. -DDX includes but is not limited to: Intracranial hemorrhage, traumatic brain injury, hematoma Vital Signs Vital Signs: Vital Signs Temperature 97.9 F 07/28/24 13:15 Pulse Rate 64 07/28/24 13:15 Respiratory Rate 16 07/28/24 13:15 Pulse Oximetry 99 07/28/24 13:15 Oxygen Delivery Room Air 07/28/24 13:15 Temperature 97.9 F 07/28/24 13:15 Pulse Rate 64 07/28/24 13:15 Respiratory Rate 16 07/28/24 13:15 Pulse Oximetry 99 07/28/24 13:15 Oxygen Delivery Room Air 07/28/24 13:15 Discharge Plan Discharge Clinical Impression: Fall, Traumatic hematoma of forehead Patient Disposition: Home Condition: Stable Instructions: Antibiotic Form, Fall Prevention (ED) Additional Instructions: Please follow-up with the primary care physician for further management. He can return to the ED at any time for re-evaluation. Return if you develop any new or worsening symptoms. Patient Language: Citizen Of [place] Prescriptions: No Action simply thick BYMOUTH PRN botox injections IM alendronate 70 mg tablet 70 mg PO WEEKLY 180 Days Qty: 26 1RF Rx Instructions: Tuesday Eliquis 5 mg tablet 5 mg PO BID Qty: 180 1RF aspirin [Adult Low Dose Aspirin] 81 mg tablet,delayed release (DR/EC) 81 mg PO DAILY Qty: 180 1RF carbidopa-levodopa 50-200 mg tablet extended release 1 tablet PO HS Qty: 90 0RF cholecalciferol (vitamin D3) 50 mcg (2,000 unit) capsule 50 mcg PO DAILY midodrine 5 mg tablet 5 mg PO TID Qty: 270 1RF Linzess 290 mcg capsule 290 mcg PO DAILY Qty: 90 1RF carbidopa-levodopa 25-100 mg tablet See Rx Instructions .ROUTE .COMPLEX Qty: 270 1RF Dose Instruction: TAKE 1 TABLET BY MOUTH THREE TIMES DAILY(AT 9AM, 1PM, AND 5PM) Rx Instructions: TAKE 1.5 TABLET BY MOUTH THREE TIMES DAILY(AT 9AM, 1PM, AND 5PM) glycerin (adult) [Fleet Glycerin (Adult)] Suppository 1 supp RECTAL DAILY PRN (Reason: constipation) Qty: 25 2RF folic acid 1 mg tablet See Rx Instructions .ROUTE .COMPLEX Qty: 90 0RF Dose Instruction: TAKE 1 TABLET BY MOUTH DAILY Rx Instructions: TAKE 1 TABLET BY MOUTH DAILY finasteride 5 mg tablet 5 mg PO DAILY Qty: 90 1RF rosuvastatin 10 mg tablet See Rx Instructions .ROUTE .COMPLEX Qty: 90 0RF Dose Instruction: TAKE 1 TABLET BY MOUTH DAILY Rx Instructions: TAKE 1 TABLET BY MOUTH DAILY midodrine 10 mg tablet See Rx Instructions .ROUTE .COMPLEX Qty: 270 0RF Dose Instruction: TAKE 1 TABLET BY MOUTH THREE TIMES DAILY. DO NOT GIVE LAST DOSE OF DAY AFTER 6 PM OR WITHIN 4 HOURS OF BEDTIME Rx Instructions: TAKE 1 TABLET BY MOUTH THREE TIMES DAILY. DO NOT GIVE LAST DOSE OF DAY AFTER 6 PM OR WITHIN 4 HOURS OF BEDTIME doxycycline hyclate 100 mg capsule 100 mg PO BID Qty: 20 0RF Follow-up/Referrals: Santosh Rowe MD [Primary Care Provider] -
[2024-07-28 14:13] VITALS: BP 142/76; PULSE 78; RESP 16; TEMP 36.6; O2SAT 100
== END 2024-07-28 14:16 ==
PROVIDERS: Emergency Provider Emergency Medicine; PCP Internal Medicine
DX: S00.83XA Contusion of other part of head, initial encounter (principal); G20.A1 Parkinson's disease without dyskinesia, without mention of fluctuations; I82.502 Chronic embolism and thrombosis of unspecified deep veins of left lower extremity; N18.9 Chronic kidney disease, unspecified; N40.0 Benign prostatic hyperplasia without lower urinary tract symptoms; E53.8 Deficiency of other specified B group vitamins; E78.5 Hyperlipidemia, unspecified; E55.9 Vitamin D deficiency, unspecified; D50.9 Iron deficiency anemia, unspecified; K21.9 Gastro-esophageal reflux disease without esophagitis; M81.0 Age-related osteoporosis without current pathological fracture; Z96.82 Presence of neurostimulator; Z87.442 Personal history of urinary calculi; Z79.82 Long term (current) use of aspirin; Z79.899 Other long term (current) drug therapy; W04.XXXA Fall while being carried or supported by other persons, initial encounter
CPT/HCPCS: 70450; 72125; 99284